=== PATIENT | female | born 1950 | race Caucasian/White ===

== ENCOUNTER 2016-09-10 21:48 | Emergency (ER) | payer OTHER, MEDICAID ==
[2016-09-10] MEDS ORDERED: ALBUTEROL 3 ML DEYVIAL ONE (22:07)
[2016-09-10 22:09] VITALS: TEMP 99.1
[2016-09-10] MEDS ORDERED: ALBUTEROL 3 ML DEYVIAL IH ONE (22:12)
[2016-09-10 22:16] LABS: % IMMATURE GRANULYOCYTES 0.4 % (0.0-1.1); ABSOLUTE IMMATURE GRANULOCYTES 0.04 10^3/uL (0.00-0.10); ADD DIFF? NO; ADD MORPH? NO; ADD SCAN? NO; ATYPICAL LYMPHOCYTE FLAG 0 (0-99); FRAGMENT RBC FLAG 0 (0-99); HEMATOCRIT 49.6 % (38.0-47.0); HEMOGLOBIN 16.6 g/dL (12.6-16.3); LEFT SHIFT FLG 0 (0-99); LIPEMIA HEMOLYSIS FLAG 80 (0-99); MEAN CELL HEMOGLOBIN 31.7 pg (27.9-34.1); MEAN CELL HEMOGLOBIN CONCENTR. 33.5 g/dL (32.4-36.7); MEAN CELL VOLUME 94.7 fL (81.5-99.8); MEAN PLATELET VOLUME 11.9 fL (8.7-11.7); PLATELET CLUMPS FLAG 10 (0-99); PLATELET COUNT 151 10^3/uL (150-400); RED BLOOD CELL COUNT 5.24 10^6/uL (4.18-5.33); RED CELL DISTRIBUTION WIDTH 13.2 % (11.5-15.2)
[2016-09-10 22:30] LABS: ALANINE AMINOTRANSFERASE 30 IU/L (9-52); ALBUMIN 4.3 g/dL (3.5-5.0); ALKALINE PHOSPHATASE 146 IU/L (38-126); ANION GAP 14 mEq/L (8-16); ASPARTATE AMINOTRANSFERASE 22 IU/L (14-46); BILIRUBIN,TOTAL 0.8 mg/dL (0.1-1.4); CALCIUM 9.9 mg/dL (8.5-10.4); CARBON DIOXIDE 22 mEq/l (22-31); CHLORIDE 103 mEq/L (97-110); CREATININE 2.1 mg/dL (0.6-1.0); GLOMERULAR FILTRATION RATE 24; GLUCOSE 129 mg/dL (70-100); POTASSIUM 5.3 mEq/L (3.5-5.2); SODIUM 139 mEq/L (134-144); TOTAL PROTEIN 8.2 g/dL (6.3-8.2)
--- NOTE | 2016-09-10 22:33 | EDPHY ---
H & P Stated Complaint: SOB, CHRONIC BRONCHITIS 85% AT HOME. DUOX2,SOLU MEDROL Time Seen by Provider: 09/10/16 22:06 HPI/ROS: HPI The patient presents brought in by ambulance for cough with shortness of breath which began tonight. For the last 3 days the patient has had runny nose, sore throat, then yesterday developed a cough which has gotten progressively worse over the course of the day. Tonight, she was trying to get ready to bed but was unable to because she was so short of breath, so called 911. When paramedics arrived her oxygen saturation was in the mid 80s. She was given a DuoNeb and Solu-Medrol 125 mg. She says she has had a flu shot this year. She was diagnosed with chronic bronchitis about a year ago by her primary care doctor but is not taking any medication for this. She is a heavy smoker. REVIEW OF SYSTEMS Constitutional: No fever, no chills. Eyes: No discharge. ENT: No sore throat. Cardiovascular: No chest pain, no palpitations. Respiratory: See HPI Gastrointestinal: No abdominal pain, no vomiting. Genitourinary: No hematuria. Musculoskeletal: No back pain. Skin: No rashes. Neurological: No headache. PMHx: Hypertension, history of renal cell carcinoma status post nephrectomy, admission for opiate overdose Soc Hx: Lives at home, smokes 1 pack per day for the last 50 years PHYSICAL General Appearance: Alert, no distress Eyes: Pupils equal and round no pallor or injection ENT, Mouth: Mucous membranes moist Respiratory: Slightly tachypneic, no retractions, prolonged I to E time with rhonchorous breath sounds throughout Cardiovascular: Regular rate and rhythm Gastrointestinal: Abdomen is soft and non-tender, no masses, bowel sounds normal Neurological: A&O, moves all extremities Skin: Warm and dry, no rashes Musculoskeletal: Neck is supple non tender Extremities: symmetrical, full range of motion Psychiatric: Patient is oriented X 3, there is no agitation Source: Patient Exam Limitations: No limitations - Personal History Current Tetanus/Diphtheria Vaccine: Yes Current Tetanus Diphtheria and Acellular Pertussis (TDAP): Yes - Medical/Surgical History Hx Asthma: Yes Hx Chronic Respiratory Disease: Yes Hx Diabetes: No Hx Cardiac Disease: No Hx Renal Disease: Yes Hx Cirrhosis: No Hx Alcoholism: No Hx HIV/AIDS: No Hx Splenectomy or Spleen Trauma: No Other PMH: Substance abuse hx, CKD, chronic knee pain, LINNEA/BSO, left nephrectomy , left flank hernia, CHRONIC BRONCHITIS - Social History Smoking Status: Light smoker Constitutional: Initial Vital Signs Temperature (C) 37.3 C 09/10/16 21:50 Heart Rate 110 H 09/10/16 21:50 Respiratory Rate 22 H 09/10/16 21:50 Blood Pressure 211/120 H 09/10/16 21:50 O2 Sat (%) 93 09/10/16 21:50 O2 Delivery Mode Room Air O2 (L/minute) 3 Allergies/Adverse Reactions: Cephalosporins Allergy (Verified 09/10/16 22:09) morphine Allergy (Verified 09/10/16 22:09) Penicillins Allergy (Verified 09/10/16 22:09) tetanus toxoid, adsorbed Allergy (Verified 09/10/16 22:09) contrast allergy Allergy (Uncoded 09/10/16 22:09) Home Medications: Medication Instructions Recorded Acetaminophen [Tylenol] 325 mg PO Q6 PRN 09/24/15 Carvedilol [Coreg] 3.125 mg PO BIDMEAL 09/24/15 Cholecalciferol Vit D3 [Vitamin D3 2,000 units PO DAILY 09/24/15 2000 units (OTC)] Escitalopram Oxalate [Lexapro] 10 mg PO DAILY 09/24/15 Gabapentin 200 mg PO HS 09/24/15 Multivitamins [Tab-A-Kilo] 1 each PO DAILY 09/24/15 S-Adenosylmethionine Sul Tosyl 200 mg PO DAILY 09/24/15 [Thanh-E] traZODone [traZODONE 50MG (RX)] 50 mg PO HS 09/24/15 Spironolactone 25 mg PO 09/10/16 Albuterol 17 gm IH Q6H PRN #1 aerosol 09/11/16 Doxycycline Hyclate 100 mg PO BID #14 tab 09/11/16 predniSONE [Prednisone] 60 mg PO DAILY #24 tablet 09/11/16 Medical Decision Making - Diagnostics Imaging: Chest x-ray two views demonstrates peribronchial thickening bilaterally, see full report from Dr. Singh for further details, discussed with Dr. Singh of Radiology. ED Course/Re-evaluation: 10:15 p.m.- Initial patient encounter. She is currently receiving albuterol after receiving DuoNeb in the field. She is feeling much better. 11:45 p.m.- The patient is feeling a bit better. She was able to ambulate to the bathroom, however upon return to her room her sat was 85%. We will check a resting room air saturation now. Initial labs are reviewed which show a creatinine of 2.1 which is near her baseline. Potassium was slightly elevated, however she did receive albuterol here and this likely lowered it. Her troponin is negative. 12:15 a.m.- The patient feels well, she is off oxygen with room air sats at about 91%. I have offered her admission, she would like to go home. I feel this is reasonable as she will be able to return if she is worse in any way and does not have an oxygen requirement. I feel she likely has a viral URI causing a a COPD exacerbation. Her rapid flu was negative. Her BNP is elevated, though on par with prior elevations. She says she has been evaluated by her primary care doctor with echo which she describes as being relatively normal. She may have a component of CHF exacerbation, however I think URI with COPD is the main cause of her symptomatology. Blood pressure is elevated, however unfortunately I feel this is her usual blood pressure. She will be sent home with an albuterol inhaler, prednisone, doxycycline. She is to follow up in the ER tomorrow if she is still feeling bad. Differential Diagnosis: This is a 66-year-old female with hypertension, status post nephrectomy for renal cell carcinoma, recent diagnosis of chronic bronchitis who presents brought in by ambulance for shortness of breath and cough which has been progressive over the last 1 day Differential diagnosis includes COPD with acute exacerbation, influenza, pneumonia, pneumothorax, CHF exacerbation. - Data Points Laboratory Results: Laboratory Results 09/10/16 21:50 09/10/16 21:50 09/10/16 09/10/16 23:30 21:50 WBC 10.15 H 10^3/uL (3.80-9.50) RBC 5.24 10^6/uL (4.18-5.33) Hgb 16.6 H g/dL (12.6-16.3) Hct 49.6 H % (38.0-47.0) MCV 94.7 fL (81.5-99.8) MCH 31.7 pg (27.9-34.1) MCHC 33.5 g/dL (32.4-36.7) RDW 13.2 % (11.5-15.2) Plt Count 151 10^3/uL (150-400) MPV 11.9 H fL (8.7-11.7) Neut % (Auto) 69.7 % (39.3-74.2) Lymph % (Auto) 15.9 % (15.0-45.0) [place] % (Auto) 10.2 % (4.5-13.0) Eos % (Auto) 2.8 % (0.6-7.6) Baso % (Auto) 1.0 % (0.3-1.7) Nucleat RBC Rel Count 0.0 % (0.0-0.2) Absolute Neuts (auto) 7.08 H 10^3/uL (1.70-6.50) Absolute Lymphs (auto) 1.61 10^3/uL (1.00-3.00) Absolute Monos (auto) 1.04 H 10^3/uL (0.30-0.80) Absolute Eos (auto) 0.28 10^3/uL (0.03-0.40) Absolute Basos (auto) 0.10 10^3/uL (0.02-0.10) Absolute Nucleated RBC 0.00 10^3/uL (0-0.01) Immature Gran % 0.4 % (0.0-1.1) Immature Gran # 0.04 10^3/uL (0.00-0.10) Sodium 139 mEq/L (134-144) Potassium 5.3 H mEq/L (3.5-5.2) Chloride 103 mEq/L (97-110) Carbon Dioxide 22 mEq/l (22-31) Anion Gap 14 mEq/L (8-16) BUN 28 H mg/dL (7-23) Creatinine 2.1 H mg/dL (0.6-1.0) Estimated GFR 24 Glucose 129 H mg/dL (70-100) Calcium 9.9 mg/dL (8.5-10.4) Total Bilirubin 0.8 mg/dL (0.1-1.4) AST 22 IU/L (14-46) ALT 30 IU/L (9-52) Alkaline Phosphatase 146 H IU/L (38-126) Troponin I 0.026 ng/mL (0-0.034) NT-Pro-B Natriuret Pep 5970 H pg/mL (0-125) Total Protein 8.2 g/dL (6.3-8.2) Albumin 4.3 g/dL (3.5-5.0) Influenza Typ A,B (DFA) NEGATIVE FOR FLU (NEGATIVE) Medications Given: Discontinued Medications Albuterol (Proventil Neb) 3 ml IH EDNOW ONE Stop: 09/10/16 22:13 Last Admin: 09/10/16 22:14 Dose: 3 ml Albuterol Sulfate (Proventil Inh Prepack) 1 mdi TAKEHOME EDNOW ONE Stop: 09/11/16 00:17 Last Admin: 09/11/16 00:27 Dose: 1 mdi Departure - Departure Disposition: Home, Routine, Self-Care Clinical Impression: Chronic obstructive pulmonary disease with acute exacerbation, Acute bronchitis Condition: Good Instructions: COPD (Chronic Obstructive Pulmonary Disease) (ED) Additional Instructions: Please make sure to take your antibiotics and prescriptions as prescribed. You should return to the emergency room if your worse in any way. Please follow-up with your primary care doctor in the next 2 days. Referrals: Maurice Barney, [Primary Care Provider] - As per Instructions Prescriptions: Albuterol 17 gm IH Q6H PRN #1 aerosol PRN Reason: Short Of Breath/Dyspnea Doxycycline Hyclate 100 mg PO BID #14 tab predniSONE [Prednisone] 60 mg PO DAILY #24 tablet
[2016-09-10 22:41] LABS: TROPONIN I 0.026 ng/mL (0-0.034)
--- NOTE | 2016-09-10 23:11 | DX ---
Chest, PA Upright and Lateral Views, at 10:01 p.m. Clinical History: 66-year-old female in the ED with shortness of breath. The patient has also had rhi norrhea, a cough, and extensive prior tobacco use history. Comparison Studies: Chest, dated December 09, 2015, and unenhanced CT imaging of the chest, dated 2014, retrieved from archive status. Findings: There are surgical clips in the medial left upper quadrant of the abdomen, consistent with a history of a prior nephrectomy. Oxygen tubing is in place. The cardiac silhouette remains enlarged, and there is tortuosity of the descending thoracic aorta. There has been an interval increase in the degree of extensive peribronchial thickening, with some peripheral paraseptal lines seen at the lung bases. There is no pleural effusion appreciated. At the medial right lung base, there appear to be a few scattered air bronchograms with some partial silhouetting of the right heart border. The trachea is midline. The patient's arms obscure the anterior retrosternal space on the lateral view. Calcifie d right hilar and subcarinal lymph nodes are seen, consistent with old granulomatous disease. The oss eous structures are age-appropriate. Impression: 1. Interval increase in diffuse peribronchial thickening and some bibasilar peripheral interstitial l grisel disease since September 26, 2015. Given the clinical scenario, a virally-mediated process is of hig h likelihood. Other differential considerations would include a drug interaction (has the patient had any recent chemotherapy, given her prior left nephrectomy), or potentially a cardiogenic etiology (c onsidered secondarily, as there is no pleural fluid appreciated). 2. An early alveolar infiltrate at the medial right lung base is suspected. 3. Sequela of old granulomas disease. Results were discussed with Dr. Lynsey Mendez. A test result has been communicated to a licensed care provider and documented in [employer], 10:53:33 P M, 09/10/2016, [employer] Message ID [id number].
[2016-09-11] MEDS ORDERED: ALBUTEROL INH PREPACK MDI TAKEHOME ONE (00:16)
[2016-09-11 00:41] VITALS: PULSE 88; RESP 20; O2SAT 90
[2016-09-11 00:42] VITALS: BP 198/110
== END 2016-09-11 00:38 | disposition home or self-care (01) ==
LOC: EDUNIT#
DX: J44.1 Chronic obstructive pulmonary disease with (acute) exacerbation (principal); J20.9 Acute bronchitis, unspecified; F17.200 Nicotine dependence, unspecified, uncomplicated; J45.909 Unspecified asthma, uncomplicated; I12.9 Hypertensive chronic kidney disease with stage 1 through stage 4 chronic kidney disease, or unspecified chronic kidney disease; N18.9 Chronic kidney disease, unspecified; Z85.528 Personal history of other malignant neoplasm of kidney

== ENCOUNTER → 2016-09-12 | Outpatient (CLI) | payer OTHER, MEDICAID ==
--- NOTE | 2016-09-12 16:37 | DX ---
PA and lateral chest - September 12, 2016 History: Shortness of breath, possible pneumonia. Comparison: PA and lateral chest of September 10, 2016. Findings: Diffuse interstitial prominence is again noted. Patchy consolidation at the right heart mar gin, likely in the right middle lobe, is unchanged. There is no pneumothorax or pleural effusion. Mil d cardiomegaly is stable. Calcified hilar and mediastinal lymph nodes are again noted. Mild degenerat car change is present in the spine. Impression: Stable chest with interstitial prominence and medial right basilar consolidation suspici ous for pneumonia. Continued radiographic follow up is recommended to resolution.
== END ==
LOC: GIMAGING 15:11
PROVIDERS: ATTEND Family Medicine
DX: R06.02 Shortness of breath (principal); Z72.0 Tobacco use
CPT/HCPCS: 71020-PO

== ENCOUNTER 2016-12-10 16:52 | Inpatient (IN) | payer OTHER, MEDICAID ==
[2016-12-10] MEDS ORDERED: NITROGLYCERIN 2% 1 GM PACKET TP ONE (17:25)
[2016-12-10] MEDS ORDERED: FUROSEMIDE 40 MG/4 ML VIAL IVP ONE (17:26)
--- NOTE | 2016-12-10 17:31 | EDPHY ---
H & P Stated Complaint: R flank pain,fluid retention, feels weak, SOB Time Seen by Provider: 12/10/16 17:15 HPI/ROS: CHIEF COMPLAINT: Weakness, shortness of breath, swelling HISTORY OF PRESENT ILLNESS: Patient is a 66-year-old female with a history of chronic kidney disease with right renal artery stenosis status post stent 10 years ago. She has also had a left nephrectomy due to renal cancer. She also has a history of chronic bronchitis. She does not typically wear oxygen at home. Her sats at triage are 88%. She has not had a fever or cough. She states that she has gained 12 lb in the last 2 weeks. She states that this seems similar to last time her renal artery was obstructed. She denies chest pain. She denies abdominal pain. REVIEW OF SYSTEMS: Constitutional: denies: chills, fever, recent illness, recent injury EENTM: denies: blurred vision, double vision, nose congestion Respiratory: See HPI Cardiac: denies: chest pain, irregular heart rate, lightheadedness, palpitations Gastrointestinal/Abdominal: denies: abdominal pain, diarrhea, nausea, vomiting, blood streaked stools Genitourinary: denies: dysuria, frequency, hematuria, pain Musculoskeletal: denies: joint pain, muscle pain Skin: denies: lesions, rash, jaundice, bruising Neurological: denies: headache, numbness, paresthesia, tingling, dizziness, weakness Hematologic/Lymphatic: denies: blood clots, easy bleeding, easy bruising Immunologic/allergic: denies: HIV/AIDS, transplant EXAM: GENERAL: Well-appearing, well-nourished and in no acute distress. HEAD: Atraumatic, normocephalic. EYES: Pupils equal round and reactive to light, extraocular movements intact, sclera anicteric, conjunctiva are normal. ENT: TMs normal, nares patent, oropharynx clear without exudates. Moist mucous membranes. NECK: Normal range of motion, supple without lymphadenopathy or JVD. LUNGS: Mild crackles at bases. No wheezes rales or rhonchi. HEART: Regular rate and rhythm without murmurs, rubs or gallops. ABDOMEN: Soft, nontender, normoactive bowel sounds. No guarding, no rebound. No masses appreciated. BACK: No CVA tenderness, no spinal tenderness, step-offs or deformities EXTREMITIES: Normal range of motion, 1+ pitting or edema. No clubbing or cyanosis. NEUROLOGICAL: Cranial nerves II through XII grossly intact. Normal speech, normal gait. 5/5 strength, normal movement in all extremities, normal sensation PSYCH: Normal mood, normal affect. SKIN: Warm, dry, normal turgor, no visible rashes or lesions. Source: Patient Exam Limitations: No limitations - Personal History Current Tetanus Diphtheria and Acellular Pertussis (TDAP): Yes - Medical/Surgical History Hx Asthma: Yes Hx Chronic Respiratory Disease: Yes Hx Diabetes: No Hx Cardiac Disease: No Hx Renal Disease: Yes Hx Cirrhosis: No Hx Alcoholism: No Hx HIV/AIDS: No Hx Splenectomy or Spleen Trauma: No Other PMH: Substance abuse hx, CKD, chronic knee pain, LINNEA/BSO, left nephrectomy for renal ca, left flank hernia, CHRONIC BRONCHITIS - Family History Significant Family History: No pertinent family hx - Social History Smoking Status: Current every day smoker Alcohol Use: Sober Drug Use: None Constitutional: Initial Vital Signs Temperature (C) 36.5 C 12/10/16 17:01 Heart Rate 84 12/10/16 17:01 Respiratory Rate 20 12/10/16 17:01 Blood Pressure 243/98 H 12/10/16 17:01 O2 Sat (%) 91 L 12/10/16 17:01 O2 Delivery Mode Room Air O2 (L/minute) 3 Allergies/Adverse Reactions: Cephalosporins Allergy (Intermediate, Verified 12/10/16 17:05) Hives Penicillins Allergy (Intermediate, Verified 12/10/16 17:05) Hives morphine Allergy (Mild, Verified 12/10/16 17:05) stomach issue tetanus toxoid, adsorbed Allergy (Mild, Verified 12/10/16 17:05) localized reaction contrast allergy Allergy (Intermediate, Uncoded 12/10/16 17:05) Hives Home Medications: Medication Instructions Recorded Carvedilol [Coreg] 3.125 mg PO BIDMEAL 09/24/15 traZODone [traZODONE 50MG (RX)] 50 mg PO HS 09/24/15 Spironolactone 25 mg PO DAILY 09/10/16 Albuterol 17 gm IH Q4 PRN 12/10/16 Budesonide/Formoterol 160/4.5 1 puffs IH BID 12/10/16 [Symbicort 160-4.5 Mcg Inh (*)] Escitalopram Oxalate [Lexapro] 20 mg PO HS 12/10/16 Gabapentin [Neurontin 100 MG (*)] 100 mg PO HS 12/10/16 Gabapentin [Neurontin 300 MG (*)] 300 mg PO HS 12/10/16 Medical Decision Making - Diagnostics EKG Interpretation: An EKG obtained and was read and documented in trace view. Please see trace view for full reading and report. Sinus rhythm, LVH, no acute ischemic changes A 2nd EKG obtained and was read and documented in trace view. Please see trace view for full reading and report. similar to previous Imaging: Imaging Impressions Chest X-Ray 12/10/16 17:26 Impression: 1. Increased interstitial prominence, which could be related to pulmonary edema /CHF. 2. Medial right basilar opacity that could be related to atelectasis. Pneumonia is considered unlikely. Abdomen/Pelvis Ultrasound 12/10/16 17:28 Impression: No acute findings. Findings discussed with Adam Martinez M.D., on December 10, 2016 at 1837 hours. X-ray: chest x-ray was obtained. I viewed the images myself on the PACS system. My interpretation of the images is: Worsening pulmonary edema. The radiologist interpretation is pending. ED Course/Re-evaluation: 6:30 p.m. the patient has pulmonary edema. She has received Lasix and nitro patch. Her blood pressure is decreased from 260 on arrival to 208/85.renal ultrasound pending. Creatinine is at baseline. Discussed her case with Dr. Demi Gill who will admit to the medical service. I will place her in PCU. Differential Diagnosis: Partial list of the Differential diagnosis considered include but were not limited to; CHF, pulmonary hypertension, pulmonary edema, pneumonia, renal insufficiency, and although unlikely based on the history and physical exam, I also considered renal failure, sepsis. Critical Care Time: Critical care time spent by me, Dr. Martinez exclusive with this patient was 35 minutes, exclusive of the PA time exclusive of procedures. The organ system that was at risk was pulmonary and I gave Lasix, nitroglycerin, consultation and admission to prevent worsening of the patient's condition - Data Points Laboratory Results: Laboratory Results 12/10/16 17:20 04/15/17 17:20 12/10/16 12/10/16 12/10/16 17:20 17:20 17:20 WBC 16.56 10^3/uL H 10^3/uL (3.80-9.50) RBC 4.33 10^6/uL 10^6/uL (4.18-5.33) Hgb 13.2 g/dL g/dL (12.6-16.3) Hct 41.3 % % (38.0-47.0) MCV 95.4 fL fL (81.5-99.8) MCH 30.5 pg pg (27.9-34.1) MCHC 32.0 g/dL L g/dL (32.4-36.7) RDW 14.3 % % (11.5-15.2) Plt Count 224 10^3/uL 10^3/uL (150-400) MPV 11.1 fL fL (8.7-11.7) Neut % (Auto) 86.0 % H % (39.3-74.2) Lymph % (Auto) 6.9 % L % (15.0-45.0) [place] % (Auto) 6.2 % % (4.5-13.0) Eos % (Auto) 0.1 % L % (0.6-7.6) Baso % (Auto) 0.2 % L % (0.3-1.7) Nucleat RBC Rel Count 0.0 % % (0.0-0.2) Absolute Neuts (auto) 14.24 10^3/uL H 10^3/uL (1.70-6.50) Absolute Lymphs (auto) 1.14 10^3/uL 10^3/uL (1.00-3.00) Absolute Monos (auto) 1.03 10^3/uL H 10^3/uL (0.30-0.80) Absolute Eos (auto) 0.02 10^3/uL L 10^3/uL (0.03-0.40) Absolute Basos (auto) 0.03 10^3/uL 10^3/uL (0.02-0.10) Absolute Nucleated RBC 0.00 10^3/uL 10^3/uL (0-0.01) Immature Gran % 0.6 % % (0.0-1.1) Immature Gran # 0.10 10^3/uL 10^3/uL (0.00-0.10) PT 13.8 SEC SEC (12.0-15.0) INR 1.07 (0.83-1.16) APTT 26.8 SEC SEC (23.0-38.0) Sodium 139 mEq/L mEq/L (134-144) Potassium 5.5 mEq/L H mEq/L (3.5-5.2) Chloride 109 mEq/L mEq/L (97-110) Carbon Dioxide 20 mEq/l L mEq/l (22-31) Anion Gap 10 mEq/L mEq/L (8-16) BUN 39 mg/dL H mg/dL (7-23) Creatinine 2.1 mg/dL H mg/dL (0.6-1.0) Estimated GFR 24 Glucose 106 mg/dL H mg/dL (70-100) Calcium 10.5 mg/dL H mg/dL (8.5-10.4) Troponin I 0.022 ng/mL ng/mL (0-0.034) NT-Pro-B Natriuret Pep 76804 pg/mL H pg/mL (0-125) Medications Given: Discontinued Medications Furosemide (Lasix Injection) 40 mg IVP EDNOW ONE Stop: 12/10/16 17:27 Last Admin: 12/10/16 17:40 Dose: 40 mg Nitroglycerin (Nitro-Bid 2%) 1 inch TP EDNOW ONE Stop: 12/10/16 17:26 Last Admin: 12/10/16 17:40 Dose: 1 inch Departure - Departure Disposition: [facility] Inpatient Acute Clinical Impression: Pulmonary edema Qualifiers: Chronicity: acute Qualified Code(s): J81.0 - Acute pulmonary edema Condition: Fair
[2016-12-10 17:32] LABS: % IMMATURE GRANULYOCYTES 0.6 % (0.0-1.1); ADD DIFF? NO; ADD MORPH? NO; ADD SCAN? NO; ATYPICAL LYMPHOCYTE FLAG 0 (0-99); FRAGMENT RBC FLAG 0 (0-99); HEMATOCRIT 41.3 % (38.0-47.0); HEMOGLOBIN 13.2 g/dL (12.6-16.3); LEFT SHIFT FLG 0 (0-99); LIPEMIA HEMOLYSIS FLAG 80 (0-99); MEAN CELL HEMOGLOBIN 30.5 pg (27.9-34.1); MEAN CELL VOLUME 95.4 fL (81.5-99.8); MEAN PLATELET VOLUME 11.1 fL (8.7-11.7); PLATELET CLUMPS FLAG 0 (0-99); PLATELET COUNT 224 10^3/uL (150-400); RED BLOOD CELL COUNT 4.33 10^6/uL (4.18-5.33); RED CELL DISTRIBUTION WIDTH 14.3 % (11.5-15.2)
[2016-12-10 17:38] LABS: ANION GAP 10 mEq/L (8-16); CALCIUM 10.5 mg/dL (8.5-10.4); CARBON DIOXIDE 20 mEq/l (22-31); CHLORIDE 109 mEq/L (97-110); CREATININE 2.1 mg/dL (0.6-1.0); GLOMERULAR FILTRATION RATE 24; GLUCOSE 106 mg/dL (70-100); POTASSIUM 5.5 mEq/L (3.5-5.2); SODIUM 139 mEq/L (134-144)
[2016-12-10 17:41] LABS: INR 1.07 (0.83-1.16); PROTIME(PATIENT) 13.8 SEC (12.0-15.0)
[2016-12-10 17:42] LABS: APTT 26.8 SEC (23.0-38.0)
[2016-12-10 17:50] LABS: TROPONIN I 0.022 ng/mL (0-0.034)
--- NOTE | 2016-12-10 18:07 | CPEKG ---
Heart Rate: 83 RR Interval: 723 P-R Interval: 192 QRSD Interval: 86 QT Interval: 364 QTC Interval: 428 P [place]: 37 QRS [place]: 44 T Wave [place]: 76 EKG Severity - ABNORMAL ECG - EKG Impression: SINUS RHYTHM EKG Impression: CONSIDER LEFT VENTRICULAR HYPERTROPHY EKG Impression: similar to previous Electronically Signed By: Adam Martinez 10-Dec-2016 19:26:35
--- NOTE | 2016-12-10 19:09 | CPEKG ---
Heart Rate: 76 RR Interval: 789 P-R Interval: 192 QRSD Interval: 86 QT Interval: 384 QTC Interval: 432 P [place]: 40 QRS [place]: 47 T Wave [place]: 49 EKG Severity - ABNORMAL ECG - EKG Impression: SINUS RHYTHM EKG Impression: CONSIDER LEFT VENTRICULAR HYPERTROPHY Electronically Signed By: Adam Martinez 10-Dec-2016 19:27:44
[2016-12-10] MEDS: BUDESONIDE/FORMOTEROL 160/4.5 60 PUFFS/MDI IH SCH (21:15)
[2016-12-10] MEDS: HEPARIN 5,000 UNIT/0.5 ML SYR SC SCH (21:27)
[2016-12-10] MEDS: GABAPENTIN 300 MG CAP PO SCH (21:27)
[2016-12-10] MEDS: GABAPENTIN 100 MG CAP PO SCH (21:27)
[2016-12-10] MEDS: ESCITALOPRAM OXALATE 10 MG TAB PO SCH (21:27)
[2016-12-10] MEDS: traZODone 50 MG TAB PO SCH (21:28)
[2016-12-10] MEDS: niCARdipine/NACL 200 ML IV SCH (21:54)
[2016-12-10] MEDS ORDERED: ALBUTEROL 60 PUFFS/8 GM MDI IH ONE (22:03)
[2016-12-10] MEDS ORDERED: ALBUTEROL 3 ML DEYVIAL IH PRN (22:04)
--- NOTE | 2016-12-10 22:27 | GHP ---
[f rep st] HISTORY AND PHYSICAL DATE OF ADMISSION: 12/10/2016 CHIEF COMPLAINT: Shortness of breath. HISTORY OF PRESENT ILLNESS: The patient is a 66-year-old female who has noticed increasing shortnes s of breath for the last 3 weeks, although her legs have only been edematous for 1 day. She has gai adrianna 12 pounds over the last 2 weeks. She denies any chest pain. She had a very similar thing occur 2 years ago when her known renal artery stenosis to a unilateral kidney had recurred. She underwen t an angioplasty to that renal artery and the CHF and hypertension all reversed themselves. This fe els exactly the same as last time. PAST MEDICAL HISTORY: 1. Left-sided nephrectomy secondary to renal cell carcinoma. 2. Recurrent renal artery stenosis status post stent to the right kidney. 3. Chronic renal failure. Baseline creatinine 2.1. PAST SURGICAL HISTORY: Hysterectomy. MEDICATIONS: Please see computer record for full, detailed list. ALLERGIES: Penicillin, cephalosporins, IV contrast, and morphine. SOCIAL HISTORY: She smokes a half-a-pack per day. No alcohol. She lives alone. REVIEW OF SYSTEMS: A complete review of systems was obtained. Review of systems is negative regard ing constitutional, HEENT, GI, pulmonary, cardiovascular, , hematology, skin, muscular, endocrine, psych, except for positives and negatives as in HPI. FAMILY HISTORY: Reviewed. Noncontributory to presenting complaint. PHYSICAL EXAMINATION: GENERAL: A well-developed, well-nourished female, in no acute distress. VIT AL SIGNS: Temperature is 36.5, pulse 77, blood pressure on presentation 243/98, saturating 94% on r oom. EYES: Normal conjunctivae. Pupils equal and reactive to light. ENT: Normal ears and nose. Hearing intact. Normal lips and teeth. Oropharynx moist. NECK: Trachea midline. No thyromegaly . CHEST: Normal respiratory effort. LUNGS: Bibasilar rales. CARDIOVASCULAR SYSTEM: Regular rat e and rhythm. No murmur. 2+ lower extremity edema. ABDOMEN: Soft. Nontender. No hepatomegaly. SKIN: Warm, dry, intact, without rash. MUSCULOSKELETAL: No cyanosis or clubbing. Strength is 5/ 5 upper and lower extremities. NEUROLOGIC: Cranial nerves intact. Normal sensation to light touch . PSYCH: Alert and oriented x3. Normal affect. Normal judgment. Normal memory. LABORATORY DATA: White count 16.56, hematocrit 41.3, platelets 224. Sodium 139, potassium 5.5, chl oride 109, bicarb 20, BUN 39, creatinine 2.1, glucose 106. Calcium is 10.5. Troponins negative. B DOWEL INSPECTOR is 12,200. EKG reviewed by me: My personal interpretation is normal sinus rhythm. No ST or T-wave changes. Chest x-ray shows CHF. Renal ultrasound is negative. ASSESSMENT AND PLAN: 1. Hypertensive emergency. She presents with new onset congestive heart failure. Need to avoid AC E inhibitors given her renal artery stenosis and unilateral kidney. Will place her on a Cardene dri p and bring her blood pressure down gradually, with a goal blood pressure overnight systolic 170-180 . She will need monitoring in the step-down unit for this. 2. New onset congestive heart failure. I suspect this is due to her uncontrolled hypertension. Wi ll check an echocardiogram. Will give her IV Lasix. 3. Recurrent renal artery stenosis with unilateral kidney. I suspect recurrence of this stenosis y et again is the cause of her current decline. I spoke with Dr. Rainey of Nephrology and she agree s. Will consult Interventional Radiology to reconsider angiogram and possible repeat stent placemen t. 4. IV contrast allergy. Prior to angiogram, she will need premedication. She did well previously with prednisone and Benadryl. 5. Chronic kidney disease. She is at baseline. 6. Peripheral vascular disease. It is not clear to me why she is not on a statin drug and an aspir in, given her severe recurrence of this renal artery stenosis due to peripheral vascular disease. S he is also still smoking. She needs much more aggressive risk reduction. Will check a lipid panel. She clearly needs a statin drug. 7. Hyperkalemia. Will stop her spironolactone. 8. Tobacco dependence. Will place on a nicotine patch. 9. Obesity. Body mass index is 38. 10. This patient is critically ill with severe uncontrolled hypertension causing congestive heart f ailure and I think it will be a complex coordination in an ongoing basis prior to proceeding with IR procedure, given the need for Renal, Interventional Radiology involvement, as well as pre-treating for her dye allergy. Plan: I spoke with Dr. Rainey and the plan will be to medically stabilize h er over the next 24 hours and I hope to coordinate for Interventional Radiology Monday. CRITICAL CARE TIME SPENT: 45 minutes. CODE STATUS: Full. ADMISSION STATUS: Will admit to inpatient. DVT PROPHYLAXIS: Subcu heparin. She is high risk. /[id number]/MODL
[2016-12-10] MEDS: ACETAMINOPHEN 325 MG TAB PO PRN (23:37)
[2016-12-11 04:01] LABS: % IMMATURE GRANULYOCYTES 0.4 % (0.0-1.1); ABSOLUTE IMMATURE GRANULOCYTES 0.06 10^3/uL (0.00-0.10); ADD DIFF? NO; ADD MORPH? NO; ADD SCAN? NO; ATYPICAL LYMPHOCYTE FLAG 0 (0-99); FRAGMENT RBC FLAG 0 (0-99); HEMATOCRIT 38.1 % (38.0-47.0); HEMOGLOBIN 12.3 g/dL (12.6-16.3); LEFT SHIFT FLG 0 (0-99); LIPEMIA HEMOLYSIS FLAG 80 (0-99); MEAN CELL HEMOGLOBIN CONCENTR. 32.3 g/dL (32.4-36.7); MEAN PLATELET VOLUME 11.1 fL (8.7-11.7); PLATELET CLUMPS FLAG 10 (0-99); PLATELET COUNT 211 10^3/uL (150-400); RED BLOOD CELL COUNT 3.97 10^6/uL (4.18-5.33); RED CELL DISTRIBUTION WIDTH 14.4 % (11.5-15.2)
[2016-12-11 04:08] LABS: ANION GAP 13 mEq/L (8-16); CALCIUM 9.8 mg/dL (8.5-10.4); CARBON DIOXIDE 23 mEq/l (22-31); CHLORIDE 108 mEq/L (97-110); CHOLESTEROL 189 mg/dL (140-220); CHOLESTEROL/HDL RATIO 4.61 RATIO (1.00-4.44); CREATININE 2.3 mg/dL (0.6-1.0); GLOMERULAR FILTRATION RATE 21; GLUCOSE 90 mg/dL (70-100); HIGH DENSITY LIPOPROTEIN 41 mg/dL (40-85); LDL/HDL RATIO 2.85 RATIO (1.00-3.22); LOW DENSITY LIPOPROTEIN 117 mg/dL (80-100); NON-HIGH DENSITY LIPOPROTEIN 148 mg/dL (90-129); POTASSIUM 5.4 mEq/L (3.5-5.2); SODIUM 144 mEq/L (134-144); TRIGLYCERIDE 159 mg/dL (35-135); VERY LOW DENSITY LIPOPROTEINS 31 mg/dL (8-25)
[2016-12-11 04:11] LABS: INR 1.1 (0.83-1.16); PROTIME(PATIENT) 14.1 SEC (12.0-15.0)
[2016-12-11] MEDS ORDERED: ALBUTEROL 60 PUFFS/8 GM MDI IH PRN (06:21)
[2016-12-11] MEDS: NICOTINE 14 MG/24 HR PATCH TD SCH (07:49)
[2016-12-11] MEDS: CARVEDILOL 3.125 MG TAB PO SCH ×2 (07:49→17:28)
[2016-12-11] MEDS: FUROSEMIDE 40 MG/4 ML VIAL IVP SCH ×2 (07:50→16:31)
[2016-12-11] MEDS: HEPARIN 5,000 UNIT/0.5 ML SYR SC SCH ×2 (07:50→16:31)
[2016-12-11] MEDS: BUDESONIDE/FORMOTEROL 160/4.5 60 PUFFS/MDI IH SCH ×2 (09:24→20:54)
--- NOTE | 2016-12-11 09:53 | GCON ---
[f rep st] CONSULTATION FIELD HOCKEY COACH CONSULTATION REASON FOR ADMISSION: Dyspnea, pulmonary edema, hypertensive urgency, new onset congestive heart fa ilure. HISTORY OF PRESENT ILLNESS: The patient is a very pleasant 66-year-old white female with a past med ical history including nephrectomy for renal cell carcinoma, chronic renal insufficiency, recurrent renal artery stenosis, and chronic obstructive pulmonary disease. She presented with increased shor tness of breath. In discussion with the patient, she states over the last several weeks she has not iced increasing breathlessness, worsening with any form of exertion. She has had significant lower extremity edema with excessive weight gain. She denies any chest pain, pleuritic type chest pain, o r anginal equivalent. No fever, no night sweats. She was admitted to the intensive care unit, and currently she feels markedly improved. PAST MEDICAL HISTORY: Again, significant for renal cell carcinoma, renal artery stenosis, with stat us post stent, chronic renal insufficiency, chronic obstructive pulmonary disease. PAST SURGICAL HISTORY: She had right nephrectomy, hysterectomy, and again, renal artery stents. ALLERGIES: Penicillin, cephalosporin, IV contrast, and morphine. SOCIAL HISTORY: 50+ pack-year smoker, none for many years. No significant alcohol use. She has go od family support. PHYSICAL EXAM: VITAL SIGNS: Blood pressure is 162/59, pulse 73, respirations 16. She is afebrile. Oxygen saturation 96% on 2 L. GENERAL: She is a moderately overweight 66-year-old white female w ho is resting comfortably on nasal cannula oxygen. HEENT: Eyes, MICHAEL, EOMI. Throat shows no eryt kit or tonsillar hypertrophy. NECK: Supple. No cervical adenopathy. HEART: Regular rate and rh ythm with a 2/6 systolic murmur at the left sternal border without radiation. LUNGS: Diminished br eath sounds and a prolongation of the expiratory phase, but there is no wheeze. There are a few bib asilar rhonchi. ABDOMEN: Soft, nontender. Bowel sounds are present in all 4 quadrants. EXTREMITI ES: 1+ lower extremity edema. IMAGING: Chest x-ray dated 12/10/2016 shows some atelectasis, some mild central pulmonary edema. LABORATORY DATA: White count 15, hemoglobin 12, hematocrit 38, platelet count 211. INR is 1.1. So dium 144, potassium 5.4, chloride 108, CO2 23, BUN 46, creatinine 2.3, glucose is 90. IMPRESSION: 1. Hypertensive urgency. Blood pressure is markedly better. 2. Congestive heart failure. 3. History of recurrent renal artery stenosis. 4. Chronic renal insufficiency. 5. Peripheral vascular disease. 6. Chronic obstructive pulmonary disease, currently stable. 7. Morbid obesity. RECOMMENDATION: 1. Agree with echocardiogram. 2. Aggressive blood pressure control. Currently adequate. 3. DVT and PE prophylaxis. 4. Stress ulcer prophylaxis. 5. Continue her home medications. 6. Patient appears to have improved. Thank you very much. /[id number]/MODL
--- NOTE | 2016-12-11 10:49 | ECHO ---
[id number] + + [address] : : [place] [address] : : [phone] + Adult Echocardiographic Report + --------+ :Name: EMRE ELKINS Date: 12/11/2016 08:04 AM : : Hospital Admission Number: [id number] Locat ion: 255: :: 1950 Gender: Female Height: 62 in : :Age: 66 yrs Race: WH Weight: 212 l b : :Reason For Study: CHF : : BSA: 2.0 mete rs2 : :History: No previous cardiac history : + --------+ MMode/2D Measurements \T\ Calculations IVSd: 2.0 cm RVDd: 3.2 cm FS: 35.5 % MV Diam: 2.9 cm LVPWd: 1.6 cm LVIDd: 4.1 cm EDV(Teich): 74.7 ml LVIDs: 2.7 cm ESV(Teich): 25.8 ml EF(Teich): 65.4 % LVOT diam: 1.5 cm LVLd ap4: 8.0 cm SV(MOD-sp4): 71.0 ml LVOT area: 1.7 cm2EDV(MOD-sp4): 117.0 ml LVLs ap4: 6.7 cm ESV(MOD-sp4): 46.0 ml EF(MOD-sp4): 60.7 % Normal Measurement Values: + + :LVIDd (3.5-5.7cm) IVSd (0.6-1.1cm) LVPWd (0.6-1.1cm) Aortic Root (2.0-3.7cm)Left Atrium (1.5-4.0cm): :LV Vol(d) (76-115ml) LV Vol(s) (29-48ml) Ejec Fraction (50-65%)PV Bravo (0.6- 1.2m/s) TV Bravo (0.4-1.0m/s) : :MV E Bravo (0.8-1.0m/s)MV A Bravo (0.3-1.0m/s)LVOT Bravo (0.7-1.2m/s) Asc Ao Bravo ( 0.9-1.8m/s) : + + Doppler Measurements \T\ Calculations MV E max bravo: MV area (1 diam): Ao V2 max: AI max bravo: 141.9 cm/sec 6.5 cm2 230.8 cm/sec 444.9 cm/sec MV A max bravo: MV Flow area Ao max PG: AI max P.3 cm/sec 21.3 mmHg 80.5 mmHg MV E/A: 2.6 (1diam): 6.5 cm2 Ao mean PG: AI dec slope: MV dec time: 15.8 mmHg 361.3 cm/sec2 0.16 sec Ao V2 mean: AI P1/2t: 187.0 cm/sec 360.7 msec Ao V2 VTI: 63.9 cm LORY(I,D): 1.2 cm2 LV V1 mean PG: MR max bravo: SV(LVOT): 76.0 mlPA V2 max: 7.2 mmHg 567.4 cm/sec 109.9 cm/sec LV V1 mean: MR max PG: PA max P.8 mmHg 125.8 cm/sec 128.8 mmHg PA V2 mean: LV V1 VTI: 45.2 cm 81.5 cm/sec PA mean P.9 mmHg PA V2 VTI: 25.5 cm PI end-d bravo: TR max bravo: 163.6 cm/sec 282.3 cm/sec TR max P.9 mmHg RAP systole: 15.0 mmHg RVSP(TR): 46.9 mmHg Left Ventricle The left ventricle is normal in size. There is moderate concentric left ventricular hypertrophy. Ejection Fraction = 60-65%. There is Doppler evidence for diastolic dysfunction. No regional wall motion abnormalities noted. Right Ventricle The right ventricle is normal in size and function. Atria Moderate LAE. Right atrial size is normal. The interatrial septum is intact with no evidence for an atrial septal defect. Mitral Valve There is mild mitral annular calcification. There is no mitral valve stenosis. There is mild to moderate mitral regurgitation. Tricuspid Valve The tricuspid valve is normal in structure and function. There is no tricuspid stenosis. Moderate TR with moderate pulmonary HTN with estimated PAS 52mmHg. Estimated elevated CVP of 15mmHg. Aortic Valve Moderate Aortic Valve Calcification. There is no aortic stenosis. Moderate aortic regurgitation. Pulmonic Valve The pulmonic valve is not well visualized. Mild pulmonic valvular regurgitation. Great Vessels The aortic root is normal size. Pericardium/Pleural There is no pericardial effusion. Conclusion A complete two-dimensional transthoracic echocardiogram was performed (2D, M-mode, Doppler and color flow Doppler). The study was technically difficult. 1)Normal LV size and systolic function with a LVEF of 60-65% and normal wall motions. 2)Moderate concentric LVH with moderate diastolic dysfunction. 3)Moderate left atrial enlargement. 4)Aortic valve sclerosis without . Moderate AI noted. 5)Mild to moderate MR without MV prolapse. 6)Moderate TR with estimated PAS 52mmHg consistent with moderate pulmonary HTN. 7)Elevated CVP of 15mmHg. Final Reading Physician: Steve Barth electronically signed on 12/11/2016 10:48 AM Ordering Physician: Demi Gill Performed By: Diane Blancas
--- NOTE | 2016-12-11 12:56 | SOAPPROG ---
SOAP Progress Note Assessment/Plan: Assessment: 1)Malignant HTN -has h/o renal artery stenosis in solitary kidney- has required stenting in past and baseline able to manage BP with coreg and aldactone alone -given spike in BP, pulm edema over past few weeks- I agree most concerning would be restenosis of stent and needs IR eval. She has contrast dye allergy but tells me she does ok as long as gets pre-treated with steroids and benadryl. PLan to discuss with IR in am to discuss timing of procedure. She is aware of risk of contrast nephropathy as well- I am hesitant to given any IVF given volume overloaded currently. -continue nicardipine gtt- her BP currently is in 160s which is good target given she came in >200s and don't want to overshoot initially and risk loss of autoregulation. Hold aldactone for now given high K. -agree with IV lasix given volume overload -needs to quit smoking, would start Asa and statin (awaiting fasting lipid profile) for more aggressive management 2)CKD s/p nephrectomy (renal cell CA) -Cr stable at baseline low 2 -at risk for further decline given concern for renal artery stenosis and need for contrast dye 3)Volume overload with pulm edema, hypoxia -suspect HTN and renal artery stenosis related -TTE ordered -agree with IV lasix 4)Hyperkalemia -change to renal diet -hold aldactone -lasix will help -recheck labs this afternoon- I left parameters for RN to call I discussed with laborer [employer] and RN [facility] [phone] 12/11/16 13:04 Subjective: 66 y/o woman with h/o HTN, CKD s/p nephrectomy (renal cell CA), renal artery stenosis s/p stenting in past admitted with sob, worsening BP. Pt usually able to manage BP at home with coreg and low dose spirinolactone alone. Over past few weeks, noted increasing BP on home checks- up to 190s SBP. Reports taking all of meds, no changes recently. Reports SOB has gradually increased over same amount of time. Tells me this is how she felt when she needed stenting of renal artery last time. No cp, n/v, diarrhea. Has underlying CKD and reports baseline Cr low 2 range. Has contrast dye allergy but reports does ok if gets pre- treated with steroids and benadryl. Objective: Vital Signs Temp Pulse Resp BP Pulse Ox 36.8 C 73 16 147/53 H 96 12/11/16 09:49 12/11/16 11:39 12/11/16 11:00 12/11/16 11:39 12/11/16 11:00 Laboratory Results 12/11/16 03:40 12/11/16 03:40 12/10/16 12/11/16 12/12/16 05:59 05:59 05:59 Intake Total 435 Balance 435 PT 14.1 SEC (12.0-15.0) 12/11/16 03:40 INR 1.10 (0.83-1.16) 12/11/16 03:40 Physical Exam - Physical Exam General Appearance: no apparent distress, other (sitting in chair, on O2 by NC, on nicardipine gtt @ 5) EENT: other (mmm) Neck: supple Respiratory: crackles (bases bilat) Cardiac/Chest: regular rate, rhythm, other (no rub) Abdomen: normal bowel sounds, non-tender, soft Skin: warm/dry Extremities: other (+edema bilat lE) Neuro/Psych: alert, oriented x 3 ICD10 Worksheet Patient Problems: Problems Problem Status Onset Pulmonary edema Acute Acute renal insufficiency Acute Opiate or related narcotic overdose Acute
[2016-12-11] MEDS: niCARdipine/NACL 200 ML IV SCH ×2 (13:16→17:28)
[2016-12-11 17:02] LABS: ANION GAP 13 mEq/L (8-16); CALCIUM 9.7 mg/dL (8.5-10.4); CARBON DIOXIDE 25 mEq/l (22-31); CHLORIDE 104 mEq/L (97-110); CREATININE 2.5 mg/dL (0.6-1.0); GLOMERULAR FILTRATION RATE 19; GLUCOSE 92 mg/dL (70-100); POTASSIUM 4.7 mEq/L (3.5-5.2); SODIUM 142 mEq/L (134-144)
--- NOTE | 2016-12-11 17:05 | SOAPPROG ---
JOVITA Progress Note Assessment/Plan: Assessment: Severe hypertension has responded well to medical therapy. Suspicion of recurrent right renal artery stenosis. Left nephrectomy for renal cell CA. History of allergy to vascular contrast (hives). Plan: Premedicate with steroid and antihistamine. Arteriography and possible angioplasty of right renal artery. 12/11/16 16:57 12/11/16 17:08 Subjective: Dyspnea and swelling of legs have responded favorably to medical treatment. Recurrent stenosis of right renal artery is likely. We discussed arteriography (after premedication) and possible balloon angioplasty in detail. Ms. Rosado is quite familiar with this procedure. She accepts risks--, stroke, allergy, internal bleeding, loss of right kidney (making hemodialysis necessary) --and she wishes to proceed. Objective: Pulses Fem Pop DP PT Left 0 0 4 0 Right 0 0 2 2 Difficulty finding femoral and popliteal pulses on this obese patient. Mallampati 3 3/3/2 Vital Signs Temp Pulse Resp BP Pulse Ox 36.8 C 76 16 163/64 H 96 12/11/16 09:49 12/11/16 16:00 12/11/16 16:00 12/11/16 16:00 12/11/16 16:00 Laboratory Results 12/11/16 03:40 12/10/16 12/11/16 12/12/16 05:59 05:59 05:59 Intake Total 435 Balance 435 PT 14.1 SEC (12.0-15.0) 12/11/16 03:40 INR 1.10 (0.83-1.16) 12/11/16 03:40 ICD10 Worksheet Patient Problems: Problems Problem Status Onset Pulmonary edema Acute Acute renal insufficiency Acute Opiate or related narcotic overdose Acute
--- NOTE | 2016-12-11 19:41 | HOSPPROG ---
Hospitalist Progress Note Assessment/Plan: * Hypertensive urgency * blood pressure adequate on cardene gtt * nephrology help appreciated * Probable recurrent renal artery stenosis * angio tomorrow *CKD * at close to baseline creatinine *edema * hold lasix tomorrow for angiogram *atherosclerosis * start statin and asa on dc Subjective: feels better Objective: Vital Signs Temp Pulse Resp BP Pulse Ox 36.8 C 76 14 161/54 H 96 12/11/16 09:49 12/11/16 17:28 12/11/16 17:00 12/11/16 17:28 12/11/16 16:00 Laboratory Results 12/11/16 03:40 12/11/16 16:45 12/10/16 12/11/16 12/12/16 05:59 05:59 05:59 Intake Total 435 809 Balance 435 809 PT 14.1 SEC (12.0-15.0) 12/11/16 03:40 INR 1.10 (0.83-1.16) 12/11/16 03:[address] hawk and nephrology - Physical Exam Constitutional: no apparent distress, appears nourished, not in pain Eyes: anicteric sclera, EOMI Ears, Nose, Mouth, Throat: moist mucous membranes, hearing normal Cardiovascular: regular rate and rhythym, no murmur, rub, or gallop, edema Respiratory: no respiratory distress, no rales or rhonchi, clear to auscultation Gastrointestinal: normoactive bowel sounds, soft, non-tender abdomen, no palpable masses Skin: warm Neurologic: AAOx3 Psychiatric: interacting appropriately, not anxious, not encephalopathic, thought process linear ICD10 Worksheet Patient Problems: Problems Problem Status Onset Pulmonary edema Acute Acute renal insufficiency Acute Opiate or related narcotic overdose Acute
[2016-12-11] MEDS: GABAPENTIN 100 MG CAP PO SCH (20:53)
[2016-12-11] MEDS: ESCITALOPRAM OXALATE 10 MG TAB PO SCH (20:53)
[2016-12-11] MEDS: traZODone 50 MG TAB PO SCH (20:54)
[2016-12-11] MEDS: GABAPENTIN 300 MG CAP PO SCH (20:54)
[2016-12-12 05:12] LABS: % IMMATURE GRANULYOCYTES 0.4 % (0.0-1.1); ABSOLUTE IMMATURE GRANULOCYTES 0.04 10^3/uL (0.00-0.10); ADD DIFF? NO; ADD MORPH? NO; ADD SCAN? NO; ATYPICAL LYMPHOCYTE FLAG 0 (0-99); FRAGMENT RBC FLAG 0 (0-99); HEMATOCRIT 40.2 % (38.0-47.0); HEMOGLOBIN 12.9 g/dL (12.6-16.3); LEFT SHIFT FLG 0 (0-99); LIPEMIA HEMOLYSIS FLAG 80 (0-99); MEAN CELL HEMOGLOBIN 30.9 pg (27.9-34.1); MEAN CELL HEMOGLOBIN CONCENTR. 32.1 g/dL (32.4-36.7); MEAN CELL VOLUME 96.4 fL (81.5-99.8); MEAN PLATELET VOLUME 10.9 fL (8.7-11.7); PLATELET CLUMPS FLAG 0 (0-99); PLATELET COUNT 198 10^3/uL (150-400); RED BLOOD CELL COUNT 4.17 10^6/uL (4.18-5.33); RED CELL DISTRIBUTION WIDTH 14.1 % (11.5-15.2)
[2016-12-12 05:40] LABS: ALBUMIN 4.2 g/dL (3.5-5.0); ANION GAP 11 mEq/L (8-16); CALCIUM 9.7 mg/dL (8.5-10.4); CARBON DIOXIDE 25 mEq/l (22-31); CHLORIDE 105 mEq/L (97-110); CREATININE 2.4 mg/dL (0.6-1.0); GLOMERULAR FILTRATION RATE 20; GLUCOSE 93 mg/dL (70-100); POTASSIUM 4.9 mEq/L (3.5-5.2); SODIUM 141 mEq/L (134-144)
[2016-12-12] MEDS: ACETAMINOPHEN 325 MG TAB PO PRN (06:23)
[2016-12-12] MEDS: CARVEDILOL 3.125 MG TAB PO SCH ×3 (08:40→17:20)
[2016-12-12] MEDS: BUDESONIDE/FORMOTEROL 160/4.5 60 PUFFS/MDI IH SCH ×2 (08:51→22:16)
[2016-12-12] MEDS ORDERED: diphenhydrAMINE 50 MG CAP PO ONE (09:00)
--- NOTE | 2016-12-12 09:00 | SOAPPROG ---
SOAP Progress Note Assessment/Plan: Assessment: 1. Accelerated hypertension 2. Diastolic CHF 3. 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 CKD IV, b/l creat low 2s 5. Solitary R kidney, prior L NTX for RCC BP reasonably controlled off cardene for now (160-180). Continue coreg. For angiogram later this am. Give HCO3 gtt per protocol, mucomyst. Premed with benadryl, solumedrol given known contrast allergy. Hold lasix, resume later tonight or in am. Plan: 12/12/16 08:55 Subjective: Able to come off cardene drip over night. Dyspnea, swelling improved with lasix. Objective: Vital Signs Temp Pulse Resp BP Pulse Ox 36.8 C 69 18 160/63 H 95 12/12/16 00:00 12/12/16 08:00 12/12/16 07:00 12/12/16 08:00 12/12/16 07:00 Laboratory Results 12/12/16 04:48 12/12/16 04:48 12/11/16 12/12/16 12/13/16 05:59 05:59 05:59 Intake Total 435 967 Output Total 1800 Balance 435 -833 PT 14.1 SEC (12.0-15.0) 12/11/16 03:40 INR 1.10 (0.83-1.16) 12/11/16 03:40 Comfortable, obese wf sitting in bed RRR, 1/6 SHARON R basilar inspiratory wheezes, otherwise CTA Abdom obese, nontender, no renal artery bruit 1+ ankle edema ICD10 Worksheet Patient Problems: Problems Problem Status Onset Opiate or related narcotic overdose Acute Acute renal insufficiency Acute Pulmonary edema Acute
--- NOTE | 2016-12-12 09:10 | PDINTPN ---
Oil Well Engineer Progress Note Assessment/Plan: Assessment: * Hypertensive urgency-currently on nicardipine drip -improved * Renal artery stenosis-renal angiogram today with possible stent placement * Chronic obstructive pulmonary disease-stable -continue metered-dose inhalers * Chronic renal insufficiency-per Nephrology Plan: Continue current care Subjective: Resting comfortably. Denies any chest pain. There is no breathlessness. Objective: Vital Signs Temp Pulse Resp BP Pulse Ox 36.8 C 64 16 160/63 H 100 12/12/16 00:00 12/12/16 08:54 12/12/16 08:54 12/12/16 08:00 12/12/16 08:54 Laboratory Results 12/12/16 04:48 12/12/16 04:48 12/11/16 12/12/16 12/13/16 05:59 05:59 05:59 Intake Total 435 967 Output Total 1800 Balance 435 -833 PT 14.1 SEC (12.0-15.0) 12/11/16 03:40 INR 1.10 (0.83-1.16) 12/11/16 03:40 Physical Exam - Physical Exam General Appearance: alert, no apparent distress EENT: PERRL/EOMI, normal ENT inspection, pharynx normal, TMs normal Neck: non-tender, full range of motion, supple, normal inspection Respiratory: prolonged expiration, No respiratory distress, No wheezing Cardiac/Chest: normal peripheral pulses, regular rate, rhythm Peripheral Pulses: 2+: carotid (R), carotid (L), femoral (R), femoral (L), dorsalis-pedis (R), dorsalis-pedis (L) Abdomen: normal bowel sounds, non-tender, soft Pelvic Exam: deferred Rectal: deferred Skin: normal color, warm/dry ICD10 Worksheet Patient Problems: Problems Problem Status Onset Pulmonary edema Acute Acute renal insufficiency Acute Opiate or related narcotic overdose Acute
[2016-12-12] MEDS: SODIUM BICARBONATE 150 MEQ in D5W 1,000 ML IV SCH ×2 (09:29→09:32)
[2016-12-12] MEDS: ACETYLCYSTEINE 20% IH/PO 30 ML VIAL PO SCH ×2 (09:41→21:53)
[2016-12-12] MEDS ORDERED: ALBUTEROL 3 ML DEYVIAL ONE (09:43)
[2016-12-12] MEDS ORDERED: HYDROCORTISONE 100 MG/2 ML VIAL IVP ONE (10:00)
[2016-12-12] MEDS ORDERED: FLUMAZENIL 0.5 MG/5 ML MDV IVP ONE (10:29)
[2016-12-12] MEDS ORDERED: NALOXONE HCL 0.4 MG/ML INJ ONE (10:29)
[2016-12-12] MEDS ORDERED: fentaNYL 100 MCG/2 ML INJ ONE ×2 (10:30→12:03)
[2016-12-12] MEDS ORDERED: MIDAZOLAM 2 MG/2 ML VIAL ONE ×2 (10:30→12:03)
[2016-12-12] MEDS ORDERED: HEPARIN 10,000 UNIT/10 ML MDV ONE (12:18)
[2016-12-12] MEDS ORDERED: IOPAMIDOL (ISOVUE-370) 150 ML BTL IV ONE (12:19)
[2016-12-12] MEDS ORDERED: IOPAMIDOL (ISOVUE-300) 100 ML BTL IV ONE (12:19)
--- NOTE | 2016-12-12 13:45 | CPEKG ---
Heart Rate: 81 RR Interval: 741 P-R Interval: 180 QRSD Interval: 80 QT Interval: 384 QTC Interval: 446 P Grimsley: 58 QRS Grimsley: 52 T Wave Grimsley: 9 EKG Severity - ABNORMAL ECG - EKG Impression: SINUS RHYTHM EKG Impression: LEFT VENTRICULAR HYPERTROPHY Electronically Signed By: Sarath Villagomez 12-Dec-2016 18:12:32
[2016-12-12] MEDS: niCARdipine/NACL 200 ML IV SCH ×2 (13:46→21:00)
[2016-12-12] MEDS: HYDROCODONE/APAP 5/325 TAB PO PRN (13:48)
--- NOTE | 2016-12-12 13:57 | POSTOPPROG ---
Post Op Note Date of Operation: 12/12/16 Surgeon: Cedric Neri Anesthesia: IV Sedation Pre-op Diagnosis: Malignant hypertension Post-op Diagnosis: Severe right renal artery stenosis Indication: Hypertension, mild chronic renal failure, solitary kidney Procedure: Attempted balloon angioplasty of right renal artery Findings: Severe stenosis of right renal artery. Technical failure to balloon Inf/Abcess present in the surg proc area at time of surgery?: No EBL: 50-100 Complications: 0
--- NOTE | 2016-12-12 14:28 | HOSPPROG ---
Hospitalist Progress Note Assessment/Plan: * Hypertensive urgency * blood pressure adequate on cardene gtt * nephrology help appreciated * recurrent severe renal artery stenosis * unable to be ballooned open * will have to talk to Nephrology. Not sure this is a vascular case that Dr. Lyman does. May need [facility] to [facility] *CKD * at close to baseline creatinine * watch carefully after contrast *edema * can restart Lasix tomorrow *atherosclerosis * start statin and asa on dc Subjective: feeling better. Objective: Vital Signs Temp Pulse Resp BP Pulse Ox 37 C 83 19 188/77 H 87 L 12/12/16 10:00 12/12/16 13:40 12/12/16 13:40 12/12/16 13:40 12/12/16 13:40 Laboratory Results 12/12/16 04:48 12/12/16 04:48 12/11/16 12/12/16 12/13/16 05:59 05:59 05:59 Intake Total 435 967 Output Total 1800 600 Balance 435 -833 -600 PT 14.1 SEC (12.0-15.0) 12/11/16 03:40 INR 1.10 (0.83-1.16) 12/11/16 03:40 Discussed with pulmonology and Interventional Radiology tele personally viewed interpreted normal sinus rhythm - Physical Exam Constitutional: no apparent distress, appears nourished, not in pain Eyes: anicteric sclera, EOMI Ears, Nose, Mouth, Throat: moist mucous membranes, hearing normal, ears appear normal Cardiovascular: regular rate and rhythym, no murmur, rub, or gallop, edema Respiratory: no respiratory distress, no rales or rhonchi, clear to auscultation Gastrointestinal: normoactive bowel sounds, soft, non-tender abdomen, no palpable masses Skin: warm Neurologic: AAOx3 Psychiatric: interacting appropriately, not anxious, not encephalopathic, thought process linear ICD10 Worksheet Patient Problems: Problems Problem Status Onset Pulmonary edema Acute Acute renal insufficiency Acute Opiate or related narcotic overdose Acute
[2016-12-12] MEDS ORDERED: FUROSEMIDE 40 MG/4 ML VIAL IVP ONE (16:00)
[2016-12-12] MEDS: NICOTINE 14 MG/24 HR PATCH TD SCH (18:18)
[2016-12-12] MEDS: HEPARIN 5,000 UNIT/0.5 ML SYR SC SCH (21:54)
[2016-12-12] MEDS: ESCITALOPRAM OXALATE 10 MG TAB PO SCH (21:54)
[2016-12-12] MEDS: GABAPENTIN 300 MG CAP PO SCH (21:54)
[2016-12-12] MEDS: GABAPENTIN 100 MG CAP PO SCH (21:54)
[2016-12-12] MEDS: traZODone 50 MG TAB PO SCH (21:54)
[2016-12-13 04:57] LABS: ALBUMIN 4.2 g/dL (3.5-5.0); ANION GAP 16 mEq/L (8-16); CALCIUM 8.9 mg/dL (8.5-10.4); CARBON DIOXIDE 20 mEq/l (22-31); CHLORIDE 102 mEq/L (97-110); CREATININE 4.1 mg/dL (0.6-1.0); GLOMERULAR FILTRATION RATE 11; GLUCOSE 92 mg/dL (70-100); POTASSIUM 5.1 mEq/L (3.5-5.2); SODIUM 138 mEq/L (134-144)
[2016-12-13] MEDS: HEPARIN 5,000 UNIT/0.5 ML SYR SC SCH ×3 (06:29→21:37)
[2016-12-13] MEDS: CARVEDILOL 3.125 MG TAB PO SCH ×2 (08:15→17:11)
[2016-12-13] MEDS: NICOTINE 14 MG/24 HR PATCH TD SCH (08:15)
[2016-12-13] MEDS: ACETYLCYSTEINE 20% IH/PO 30 ML VIAL PO SCH ×2 (08:30→21:40)
[2016-12-13] MEDS: BUDESONIDE/FORMOTEROL 160/4.5 60 PUFFS/MDI IH SCH ×2 (08:39→21:41)
[2016-12-13] MEDS ORDERED: NS 1,000 ML IV SCH (10:15)
--- NOTE | 2016-12-13 10:16 | SOAPPROG ---
SOAP Progress Note Assessment/Plan: Assessment: 1. AMARILIS Likely worsened stenosis, contrast, or AE following attempt yesterday, vs IV volume depletion and HTN correcting. Making urine, so artery is not completely occluded. Will give a small amount of IVF. Keep on Low K diet. Start oral bicarb. Monitor serial labs. Counseled Patient. She is aware that she may require temporary or permanent dialysis. 2. Diastolic Heart Failure Well compensated. Would like to maximize volume status without creating heart failure. 3. YENNY in solitary kidney with underlying CKD Difficult situation. Maintain Cardene, current SBP of 170 is good. 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 Prophylax with bicarb. Plan: 12/13/16 10:12 Subjective: Doing fairly well. Objective: Vital Signs Temp Pulse Resp BP Pulse Ox 36.7 C 76 17 164/55 H 95 12/13/16 08:00 12/13/16 08:39 12/13/16 08:39 12/13/16 08:00 12/13/16 08:39 Laboratory Results 12/12/16 04:48 12/13/16 04:15 12/12/16 12/13/16 12/14/16 05:59 05:59 05:59 Intake Total 967 1501 Output Total 1800 1200 Balance -833 301 PT 14.1 SEC (12.0-15.0) 12/11/16 03:40 INR 1.10 (0.83-1.16) 12/11/16 03:40 Physical Exam - Physical Exam General Appearance: no apparent distress Respiratory: lungs clear Cardiac/Chest: regular rate, rhythm Extremities: normal inspection Neuro/Psych: oriented x 3 ICD10 Worksheet Patient Problems: Problems Problem Status Onset Pulmonary edema Acute Acute renal insufficiency Acute Opiate or related narcotic overdose Acute
[2016-12-13] MEDS: HYDROCODONE/APAP 5/325 TAB PO PRN ×3 (11:59→22:40)
[2016-12-13] MEDS: SODIUM BICARBONATE 650 MG TAB PO SCH ×3 (12:00→21:37)
[2016-12-13] MEDS: niCARdipine/NACL 200 ML IV SCH ×2 (13:00→17:11)
--- NOTE | 2016-12-13 15:31 | HOSPPROG ---
Hospitalist Progress Note Assessment/Plan: * Hypertensive urgency * blood pressure adequate on cardene gtt * nephrology help appreciated * recurrent severe renal artery stenosis * unable to be ballooned open * will try again tomorrow *CKD * worse today * diuretics are held *edema * holding diuretics *atherosclerosis * start statin and asa on dc * has been intolerant of statins in the past Subjective: no new complaints. after she came back from IR yesterday she was dyspneic with increased oxygen requirement and thus Lasix was given Objective: Vital Signs Temp Pulse Resp BP Pulse Ox 36.7 C 74 17 182/74 H 98 12/13/16 08:00 12/13/16 14:00 12/13/16 14:00 12/13/16 14:00 12/13/16 14:00 Laboratory Results 12/12/16 04:48 12/12/16 12/13/16 12/14/16 05:59 05:59 05:59 Intake Total 967 1501 Output Total 1800 1200 Balance -833 301 PT 14.1 SEC (12.0-15.0) 12/11/16 03:40 INR 1.10 (0.83-1.16) 12/11/16 03:40 discussed with pulmonology - Physical Exam Constitutional: no apparent distress, appears nourished, not in pain Eyes: anicteric sclera, EOMI Ears, Nose, Mouth, Throat: moist mucous membranes, hearing normal Cardiovascular: regular rate and rhythym, no murmur, rub, or gallop Respiratory: no respiratory distress, no rales or rhonchi, clear to auscultation Gastrointestinal: normoactive bowel sounds, soft, non-tender abdomen, no palpable masses Skin: warm Neurologic: AAOx3 Psychiatric: interacting appropriately, not anxious, not encephalopathic, thought process linear ICD10 Worksheet Patient Problems: Problems Problem Status Onset Pulmonary edema Acute Acute renal insufficiency Acute Opiate or related narcotic overdose Acute
[2016-12-13 15:43] LABS: ANION GAP 14 mEq/L (8-16); CALCIUM 8.6 mg/dL (8.5-10.4); CARBON DIOXIDE 22 mEq/l (22-31); CHLORIDE 98 mEq/L (97-110); GLOMERULAR FILTRATION RATE 9; GLUCOSE 244 mg/dL (70-100); POTASSIUM 4.5 mEq/L (3.5-5.2); SODIUM 134 mEq/L (134-144)
--- NOTE | 2016-12-13 16:48 | PDINTPN ---
Chief Mate Progress Note Assessment/Plan: Assessment/plan: 66 F with solitary kidney from remote RCC admitted with hypertensive urgency from recurrent renal artery stenosis. Her BP has been relatively controlled with a Cardene drip, but the first attempt at PTCA was unsuccessful. She has COPD as well, but that has been stable. * YENNY- will re-attempt PTCA tomorrow, as she reports that usually improves both BP and O2 requirements. Continue Cardene drip for now. * COPD stable on Symbicort and prn albuterol. She remains on Carvedilol, but if additional beta blockade is needed, her COPD should not be a barrier. * AMARILIS- her creatinine is rising today. Renal managing and starting gentle IVF. Objective: Vital Signs Temp Pulse Resp BP Pulse Ox 36.7 C 70 23 H 176/55 H 98 12/13/16 08:00 12/13/16 16:00 12/13/16 16:00 12/13/16 16:00 12/13/16 16:00 Laboratory Results 12/12/16 04:48 12/13/16 15:06 12/12/16 12/13/16 12/14/16 05:59 05:59 05:59 Intake Total 967 1501 Output Total 1800 1200 Balance -833 301 PT 14.1 SEC (12.0-15.0) 12/11/16 03:40 INR 1.10 (0.83-1.16) 12/11/16 03:40 Physical Exam - Physical Exam General Appearance: WD/WN, alert, obese EENT: PERRL/EOMI Neck: full range of motion, supple Respiratory: lungs clear, normal breath sounds, No respiratory distress, No rales, No rhonchi Abdomen: normal bowel sounds, non-tender, soft, No distended Skin: normal color, warm/dry Extremities: normal range of motion, No pedal edema Neuro/Psych: alert, normal mood/affect, oriented x 3 ICD10 Worksheet Patient Problems: Problems Problem Status Onset Pulmonary edema Acute Acute renal insufficiency Acute Opiate or related narcotic overdose Acute
[2016-12-13] MEDS: GABAPENTIN 300 MG CAP PO SCH (21:37)
[2016-12-13] MEDS: ESCITALOPRAM OXALATE 10 MG TAB PO SCH (21:37)
[2016-12-13] MEDS: GABAPENTIN 100 MG CAP PO SCH (21:38)
[2016-12-13] MEDS: traZODone 50 MG TAB PO SCH (21:38)
[2016-12-14 04:42] LABS: % IMMATURE GRANULYOCYTES 0.4 % (0.0-1.1); ABSOLUTE IMMATURE GRANULOCYTES 0.05 10^3/uL (0.00-0.10); ADD DIFF? NO; ADD MORPH? NO; ADD SCAN? NO; ATYPICAL LYMPHOCYTE FLAG 0 (0-99); FRAGMENT RBC FLAG 0 (0-99); HEMATOCRIT 36.5 % (38.0-47.0); HEMOGLOBIN 11.9 g/dL (12.6-16.3); LEFT SHIFT FLG 0 (0-99); LIPEMIA HEMOLYSIS FLAG 80 (0-99); MEAN CELL HEMOGLOBIN 31.2 pg (27.9-34.1); MEAN CELL HEMOGLOBIN CONCENTR. 32.6 g/dL (32.4-36.7); MEAN CELL VOLUME 95.5 fL (81.5-99.8); MEAN PLATELET VOLUME 11.1 fL (8.7-11.7); PLATELET CLUMPS FLAG 10 (0-99); PLATELET COUNT 123 10^3/uL (150-400); RED BLOOD CELL COUNT 3.82 10^6/uL (4.18-5.33); RED CELL DISTRIBUTION WIDTH 14.1 % (11.5-15.2)
[2016-12-14 05:00] LABS: ALBUMIN 4.1 g/dL (3.5-5.0); ANION GAP 18 mEq/L (8-16); CALCIUM 8.8 mg/dL (8.5-10.4); CARBON DIOXIDE 22 mEq/l (22-31); CHLORIDE 97 mEq/L (97-110); CREATININE 6.2 mg/dL (0.6-1.0); GLOMERULAR FILTRATION RATE 7; GLUCOSE 80 mg/dL (70-100); POTASSIUM 5.4 mEq/L (3.5-5.2); SODIUM 137 mEq/L (134-144)
[2016-12-14] MEDS: HYDROCODONE/APAP 5/325 TAB PO PRN ×2 (05:18→19:51)
[2016-12-14] MEDS: HEPARIN 5,000 UNIT/0.5 ML SYR SC SCH ×3 (05:59→21:11)
[2016-12-14] MEDS: SODIUM BICARBONATE 650 MG TAB PO SCH ×4 (06:37→21:15)
[2016-12-14] MEDS ORDERED: FAMOTIDINE 20 MG/NACL 50 ML IV ONE (08:00)
[2016-12-14] MEDS ORDERED: methylPREDNISolone SOD SUCC 125 MG/2 ML VIAL IVP ONE (08:00)
[2016-12-14] MEDS: BUDESONIDE/FORMOTEROL 160/4.5 60 PUFFS/MDI IH SCH ×2 (08:28→20:18)
--- NOTE | 2016-12-14 08:54 | SOAPPROG ---
SOAP Progress Note Assessment/Plan: Assessment: 1. Renovascular hypertension 2. Diastolic CHF 3. 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 CKD IV, b/l creat low 2s 5. Solitary R kidney, prior L NTX for RCC BP reasonably controlled off cardene for now (goal sbp 170-180). Continue coreg. Unsuccessful attempt at OUTPATIENT PHARMACY MANAGER Monday. Now with AMARILIS, worsening BUN/creat and hyperkalemia. Likely due to contrast +/- BP control. Has tight right YENNY. May be difficult to recover from AMARILIS until this is fixed. I think benefit of repeat procedure outweigh risks. For angiogram again later this am via radial approach. Give HCO3 gtt per protocol. IR to place temp HD cath. Will initiate HD today, again tomorrow. Pt understands renal recovery could be weeks to months, if at all. Premed with benadryl, solumedrol given known contrast allergy. Holding lasix, resume later tonight or in am. Plan: 12/12/16 08:55 12/14/16 08:50 Subjective: Denies sob or other complaints. Had dialysis once in the past with angiogram. Willing to proceed with procedure today and dialysis. Objective: Vital Signs Temp Pulse Resp BP Pulse Ox 36.7 C 89 20 173/65 H 94 12/13/16 08:00 12/14/16 08:29 12/14/16 08:29 12/14/16 06:00 12/14/16 08:29 Laboratory Results 12/14/16 04:30 12/14/16 04:30 12/13/16 12/14/16 12/15/16 05:59 05:59 05:59 Intake Total 1501 1474 Output Total 1200 Balance 301 1474 PT 14.1 SEC (12.0-15.0) 12/11/16 03:40 INR 1.10 (0.83-1.16) 12/11/16 03:40 Comfortable wf, in chair RRR, II/ SHARON Coarse bibasilar crackles, +insp wheezes Abdom soft, nt 2+ LE pitting edema ICD10 Worksheet Patient Problems: Problems Problem Status Onset Opiate or related narcotic overdose Acute Acute renal insufficiency Acute Pulmonary edema Acute
[2016-12-14] MEDS: CARVEDILOL 3.125 MG TAB PO SCH ×2 (09:40→17:35)
[2016-12-14] MEDS ORDERED: HEPARIN 50,000 UNIT/10 ML VIAL ONE ×2 (10:17→20:15)
[2016-12-14] MEDS ORDERED: VERAPAMIL 5 MG/2 ML VIAL ONE (10:27)
[2016-12-14] MEDS ORDERED: HEPARIN 10,000 UNIT/10 ML MDV ONE ×2 (10:28→11:25)
[2016-12-14] MEDS ORDERED: NITROGLYCERIN/D5W 50 MG/250 ML BOTTLE IV ONE ×2 (10:28→10:29)
[2016-12-14] MEDS ORDERED: SODIUM BICARBONATE 150 MEQ in D5W 1,000 ML IV SCH (10:30)
[2016-12-14] MEDS ORDERED: fentaNYL 100 MCG/2 ML INJ ONE (10:43)
[2016-12-14] MEDS ORDERED: MIDAZOLAM 2 MG/2 ML VIAL ONE (10:43)
[2016-12-14] MEDS ORDERED: IOPAMIDOL (ISOVUE-300) 100 ML BTL IV ONE (11:24)
--- NOTE | 2016-12-14 12:39 | POSTOPPROG ---
Post Op Note Date of Operation: 12/14/16 Surgeon: Cedric Neri Anesthesia: IV Sedation Pre-op Diagnosis: Severe right renal artery stenosis, solitary kidney Post-op Diagnosis: Same Indication: Severe hypertension, renal failure Procedure: 1. Temp dialysis catheter 2. Angioplasty right renal artery Findings: 1. Catheter ready. 2. Successful angioplasty. Inf/Abcess present in the surg proc area at time of surgery?: No EBL: 50-100 Complications: 0
[2016-12-14] MEDS: NICOTINE 14 MG/24 HR PATCH TD SCH (13:06)
--- NOTE | 2016-12-14 15:02 | PDINTPN ---
Fly Worker Progress Note Assessment/Plan: Assessment/plan: 66 F with solitary kidney from remote RCC admitted with hypertensive urgency from recurrent renal artery stenosis. Her BP has been relatively controlled with a Cardene drip, but the first attempt at PTCA was unsuccessful. She has COPD as well, but that has been stable. * YENNY- re-attempt at PTCA * COPD stable on Symbicort and prn albuterol. She remains on Carvedilol, but if additional beta blockade is needed, her COPD should not be a barrier. * AMARILIS- went for HD catheter today and likely to get HD this afternoon 12/14/16 15:01 Objective: Vital Signs Temp Pulse Resp BP Pulse Ox 36.7 C 72 23 H 158/68 H 96 12/13/16 08:00 12/14/16 14:00 12/14/16 14:00 12/14/16 14:00 12/14/16 14:00 Laboratory Results 12/14/16 04:30 12/14/16 04:30 12/13/16 12/14/16 12/15/16 05:59 05:59 05:59 Intake Total 1501 1474 Output Total 1200 Balance 301 1474 PT 14.1 SEC (12.0-15.0) 12/11/16 03:40 INR 1.10 (0.83-1.16) 12/11/16 03:40 Physical Exam - Physical Exam General Appearance: alert, no apparent distress, obese EENT: PERRL/EOMI Neck: supple Respiratory: lungs clear, normal breath sounds, respiratory distress, No rales, No rhonchi Cardiac/Chest: normal peripheral pulses, regular rate, rhythm, No edema Abdomen: normal bowel sounds, non-tender, soft, No distended Skin: normal color, warm/dry Lymphatic: no adenopathy Extremities: No pedal edema Neuro/Psych: alert, normal mood/affect, oriented x 3 ICD10 Worksheet Patient Problems: Problems Problem Status Onset Pulmonary edema Acute Acute renal insufficiency Acute Opiate or related narcotic overdose Acute
--- NOTE | 2016-12-14 15:56 | CPEKG ---
Heart Rate: 79 RR Interval: 759 P-R Interval: 212 QRSD Interval: 90 QT Interval: 396 QTC Interval: 455 P Ripley: 37 QRS Ripley: 45 T Wave Ripley: 78 EKG Severity - ABNORMAL ECG - EKG Impression: SINUS RHYTHM EKG Impression: PROBABLE LVH WITH SECONDARY REPOL ABNRM Electronically Signed By: Sarath Romo 15-Dec-2016 10:12:27
--- NOTE | 2016-12-14 16:58 | HOSPPROG ---
Hospitalist Progress Note Assessment/Plan: * Hypertensive urgency * blood pressure adequate on cardene gtt * will see will blood pressure does the next 24-48 hours after renal artery has been opened up. I am hesitant to add any new oral antihypertensives and risk decreased profusion * would continue Cardene drip for now. could decrease goal to 140-160 systolic * recurrent severe renal artery stenosis * was able to be angioplastied after 2nd attempt * eventually will need bypass * acute on chronic kidney disease * most likely due to contrast nephropathy in setting of limited perfusion * worse today * dialysis catheter placed and will be getting dialysis *edema/ diastolic heart failure * holding diuretics *atherosclerosis * start statin and asa on dc * has been intolerant of statins in the past Subjective: no new complaints. Successful angioplasty of right renal artery. Finish dialysis Objective: Vital Signs Temp Pulse Resp BP Pulse Ox 36.7 C 82 17 165/69 H 4 L 12/13/16 08:00 12/14/16 16:00 12/14/16 16:00 12/14/16 16:00 12/14/16 16:00 Laboratory Results 12/14/16 04:30 12/14/16 04:30 12/13/16 12/14/16 12/15/16 05:59 05:59 05:59 Intake Total 1501 1474 Output Total 1200 Balance 301 1474 PT 14.1 SEC (12.0-15.0) 12/11/16 03:40 INR 1.10 (0.83-1.16) 12/11/16 03:40 discuss with Interventional Radiology and pulmonology tele personally viewed interpreted normal sinus rhythm - Physical Exam Constitutional: no apparent distress, appears nourished, not in pain Eyes: anicteric sclera, EOMI Ears, Nose, Mouth, Throat: moist mucous membranes, hearing normal, ears appear normal Cardiovascular: regular rate and rhythym, no murmur, rub, or gallop Respiratory: no respiratory distress, no rales or rhonchi, clear to auscultation Gastrointestinal: normoactive bowel sounds, soft, non-tender abdomen, no palpable masses Skin: warm Neurologic: AAOx3 Psychiatric: interacting appropriately, not anxious, not encephalopathic, thought process linear ICD10 Worksheet Patient Problems: Problems Problem Status Onset Pulmonary edema Acute Acute renal insufficiency Acute Opiate or related narcotic overdose Acute
[2016-12-14] MEDS: niCARdipine/NACL 200 ML IV SCH ×2 (17:03→21:41)
[2016-12-14] MEDS: ESCITALOPRAM OXALATE 10 MG TAB PO SCH (21:15)
[2016-12-14] MEDS: GABAPENTIN 300 MG CAP PO SCH (21:15)
[2016-12-14] MEDS: GABAPENTIN 100 MG CAP PO SCH (21:15)
[2016-12-14] MEDS: traZODone 50 MG TAB PO SCH (21:15)
[2016-12-15] MEDS: niCARdipine/NACL 200 ML IV SCH ×4 (02:24→17:48)
[2016-12-15] MEDS: SODIUM BICARBONATE 650 MG TAB PO SCH (06:06)
[2016-12-15] MEDS: HEPARIN 5,000 UNIT/0.5 ML SYR SC SCH ×3 (06:19→21:26)
[2016-12-15 06:30] LABS: % IMMATURE GRANULYOCYTES 0.6 % (0.0-1.1); ABSOLUTE IMMATURE GRANULOCYTES 0.07 10^3/uL (0.00-0.10); ADD DIFF? NO; ADD MORPH? NO; ADD SCAN? NO; ATYPICAL LYMPHOCYTE FLAG 0 (0-99); FRAGMENT RBC FLAG 0 (0-99); HEMATOCRIT 33.4 % (38.0-47.0); LEFT SHIFT FLG 0 (0-99); LIPEMIA HEMOLYSIS FLAG 80 (0-99); MEAN CELL HEMOGLOBIN 30.8 pg (27.9-34.1); MEAN CELL HEMOGLOBIN CONCENTR. 32.9 g/dL (32.4-36.7); MEAN CELL VOLUME 93.6 fL (81.5-99.8); MEAN PLATELET VOLUME 11.3 fL (8.7-11.7); PLATELET CLUMPS FLAG 10 (0-99); PLATELET COUNT 121 10^3/uL (150-400); RED BLOOD CELL COUNT 3.57 10^6/uL (4.18-5.33); RED CELL DISTRIBUTION WIDTH 13.9 % (11.5-15.2)
[2016-12-15 06:58] LABS: ALBUMIN 3.8 g/dL (3.5-5.0); ANION GAP 13 mEq/L (8-16); CALCIUM 8.9 mg/dL (8.5-10.4); CARBON DIOXIDE 26 mEq/l (22-31); CHLORIDE 100 mEq/L (97-110); CREATININE 4.1 mg/dL (0.6-1.0); GLOMERULAR FILTRATION RATE 11; GLUCOSE 139 mg/dL (70-100); POTASSIUM 4.6 mEq/L (3.5-5.2); SODIUM 139 mEq/L (134-144)
[2016-12-15] MEDS: HYDROCODONE/APAP 5/325 TAB PO PRN ×3 (07:33→18:49)
[2016-12-15] MEDS: CARVEDILOL 3.125 MG TAB PO SCH ×2 (07:34→17:48)
[2016-12-15] MEDS: NICOTINE 14 MG/24 HR PATCH TD SCH (08:31)
[2016-12-15] MEDS: BUDESONIDE/FORMOTEROL 160/4.5 60 PUFFS/MDI IH SCH ×2 (08:32→21:27)
--- NOTE | 2016-12-15 10:52 | SOAPPROG ---
SOAP Progress Note Assessment/Plan: Assessment/Plan: AMARILIS on CKD stage IV: pt with solitary kidney and baseline Cr in low 2 range. Cr worse in setting of malignant HTn and known renal artery stenosis, pt reports being nonoliguric. HD #1 done yesterday. - HD being done again today. - Will continue to monitor renal parameters closely for renal recovery. - Strict I/Os. - Avoid MOM, morphine, demerol, NSAIDs, contrast aminoglycosides, fleets, and other nephrotoxins. - Avoid hypotension. Malignant HTN: in setting of solitary kidney and renal artery stenosis. Pt now s/p successful angioplasty yesterday. Pt is again on nicardipine ggt. Hyperkalemia: improved with HD, will continue to monitor. Metabolic acidosis: improved with HD, will stop bicarb tabs and continue to monitor. Subjective: No acute events overnight. Pt had HD #1 yesterday, tolerated well, getting HD this am with no complaints. She states she is still urinating well. She is back on Cardene drip. Objective: Vital Signs Temp Pulse Resp BP Pulse Ox 36.5 C 65 18 145/48 H 91 L 12/15/16 06:18 12/15/16 08:00 12/15/16 08:00 12/15/16 08:00 12/15/16 08:00 Laboratory Results 12/15/16 06:10 12/15/16 06:10 12/14/16 12/15/16 12/16/16 05:59 05:59 05:59 Intake Total 1474 1819.8 Output Total 1 Balance 1474 1818.8 PT 14.1 SEC (12.0-15.0) 12/11/16 03:40 INR 1.10 (0.83-1.16) 12/11/16 03:40 General: alert and oriented, no acute distress Eyes; EOMI, PERRL OP: Clear CV: RRR Resp: nonlabored respirations Abd: soft, NT Ext: no edema BLE Neuro: CN II-XII grossly intact, no asterixis Psych: cooperative, appropriate mood and affect Access: R IJ temp cath, placed 12/14/16 ICD10 Worksheet Patient Problems: Problems Problem Status Onset Pulmonary edema Acute Acute renal insufficiency Acute Opiate or related narcotic overdose Acute
[2016-12-15 15:05] LABS: HEPATITIS Bs Ab QUANT <5.0 mIU/mL
--- NOTE | 2016-12-15 16:39 | HOSPPROG ---
Hospitalist Progress Note Assessment/Plan: 66 yo f solitary kidney, recurrent YENNY, hypertensive urgency Hypertensive urgency * blood pressure adequate on cardene gtt * will see will blood pressure does the next 24-48 hours after renal artery has been opened up. I am hesitant to add any new oral antihypertensives and risk decreased profusion * would continue Cardene drip for now. goal 160 systolic recurrent severe renal artery stenosis * was able to be angioplastied after 2nd attempt * eventually will need bypass acute on chronic kidney disease * most likely due to contrast nephropathy in setting of limited perfusion * worse today * dialysis catheter placed and will be getting dialysis making urine which is encouraging edema/ diastolic heart failure * holding diuretics atherosclerosis * start statin and asa on dc * has been intolerant of statins in the past dispo: inpt proph: start SC heparin in AM if no further procedures Subjective: tele: pvc's (interp by me). case d/w dr ospina Objective: Vital Signs Temp Pulse Resp BP Pulse Ox 36.5 C 69 23 H 160/55 H 94 12/15/16 06:18 12/15/16 16:00 12/15/16 16:00 12/15/16 16:00 12/15/16 16:00 Laboratory Results 12/15/16 06:10 12/15/16 06:10 12/14/16 12/15/16 12/16/16 05:59 05:59 05:59 Intake Total 1474 1819.8 Output Total 1 Balance 1474 1818.8 PT 14.1 SEC (12.0-15.0) 12/11/16 03:40 INR 1.10 (0.83-1.16) 12/11/16 03:40 - Physical Exam Constitutional: no apparent distress, appears nourished Eyes: PERRL, anicteric sclera Ears, Nose, Mouth, Throat: moist mucous membranes, hearing normal Cardiovascular: regular rate and rhythym, no murmur, rub, or gallop Respiratory: no respiratory distress, no rales or rhonchi Gastrointestinal: normoactive bowel sounds, soft, non-tender abdomen Genitourinary: No matthews in urethra Skin: warm Musculoskeletal: full muscle strength, no muscle tenderness Neurologic: AAOx3, sensation intact bilaterally Psychiatric: interacting appropriately, not anxious Lymph, Heme, Immunologic: no cervical LAD ICD10 Worksheet Patient Problems: Problems Problem Status Onset Pulmonary edema Acute Acute renal insufficiency Acute Opiate or related narcotic overdose Acute
--- NOTE | 2016-12-15 16:49 | PDINTPN ---
Mobile Development Manager Progress Note Assessment/Plan: Assessment/plan: 66 F with solitary kidney from remote RCC admitted with hypertensive urgency from recurrent renal artery stenosis. Her BP has been relatively controlled with a Cardene drip, but the first attempt at PTCA was unsuccessful. She has COPD as well, but that has been stable. * YENNY- re-attempt at PTCA was successful. Attempting to titrate off cardene drip * COPD stable on Symbicort and prn albuterol. She remains on Carvedilol, but if additional beta blockade is needed, her COPD should not be a barrier. * AMARILIS- getting HD this am Objective: Vital Signs Temp Pulse Resp BP Pulse Ox 36.5 C 69 23 H 160/55 H 94 12/15/16 06:18 12/15/16 16:00 12/15/16 16:00 12/15/16 16:00 12/15/16 16:00 Laboratory Results 12/15/16 06:10 12/15/16 06:10 12/14/16 12/15/16 12/16/16 05:59 05:59 05:59 Intake Total 1474 1819.8 Output Total 1 Balance 1474 1818.8 PT 14.1 SEC (12.0-15.0) 12/11/16 03:40 INR 1.10 (0.83-1.16) 12/11/16 03:40 Physical Exam - Physical Exam General Appearance: WD/WN, alert, obese EENT: PERRL/EOMI Neck: supple Respiratory: lungs clear, normal breath sounds, No respiratory distress Cardiac/Chest: normal peripheral pulses, regular rate, rhythm Abdomen: normal bowel sounds, non-tender, soft, No distended Skin: normal color, warm/dry Lymphatic: no adenopathy Extremities: non-tender, pedal edema Neuro/Psych: alert, normal mood/affect, oriented x 3 ICD10 Worksheet Patient Problems: Problems Problem Status Onset Pulmonary edema Acute Acute renal insufficiency Acute Opiate or related narcotic overdose Acute
[2016-12-15] MEDS: GABAPENTIN 100 MG CAP PO SCH (21:25)
[2016-12-15] MEDS: GABAPENTIN 300 MG CAP PO SCH (21:25)
[2016-12-15] MEDS: traZODone 50 MG TAB PO SCH (21:25)
[2016-12-15] MEDS: ESCITALOPRAM OXALATE 10 MG TAB PO SCH (21:25)
[2016-12-16 04:17] LABS: % IMMATURE GRANULYOCYTES 0.6 % (0.0-1.1); ABSOLUTE IMMATURE GRANULOCYTES 0.06 10^3/uL (0.00-0.10); ADD DIFF? NO; ADD MORPH? NO; ADD SCAN? NO; ATYPICAL LYMPHOCYTE FLAG 0 (0-99); FRAGMENT RBC FLAG 0 (0-99); HEMATOCRIT 30.3 % (38.0-47.0); HEMOGLOBIN 9.8 g/dL (12.6-16.3); LEFT SHIFT FLG 0 (0-99); LIPEMIA HEMOLYSIS FLAG 80 (0-99); MEAN CELL HEMOGLOBIN 31.3 pg (27.9-34.1); MEAN CELL HEMOGLOBIN CONCENTR. 32.3 g/dL (32.4-36.7); MEAN CELL VOLUME 96.8 fL (81.5-99.8); MEAN PLATELET VOLUME 11.5 fL (8.7-11.7); PLATELET CLUMPS FLAG 0 (0-99); PLATELET COUNT 115 10^3/uL (150-400); RED BLOOD CELL COUNT 3.13 10^6/uL (4.18-5.33); RED CELL DISTRIBUTION WIDTH 14.5 % (11.5-15.2)
[2016-12-16] MEDS: HEPARIN 5,000 UNIT/0.5 ML SYR SC SCH ×3 (04:31→20:39)
[2016-12-16 04:37] LABS: ALBUMIN 3.3 g/dL (3.5-5.0); ANION GAP 8 mEq/L (8-16); CALCIUM 8.8 mg/dL (8.5-10.4); CARBON DIOXIDE 29 mEq/l (22-31); CHLORIDE 103 mEq/L (97-110); CREATININE 2.4 mg/dL (0.6-1.0); GLOMERULAR FILTRATION RATE 20; GLUCOSE 105 mg/dL (70-100); POTASSIUM 4.8 mEq/L (3.5-5.2); SODIUM 140 mEq/L (134-144)
[2016-12-16] MEDS: niCARdipine/NACL 200 ML IV SCH ×2 (05:18→14:12)
[2016-12-16] MEDS: HYDROCODONE/APAP 5/325 TAB PO PRN ×3 (05:18→22:25)
[2016-12-16] MEDS: CARVEDILOL 3.125 MG TAB PO SCH ×2 (08:22→18:52)
[2016-12-16] MEDS: NICOTINE 14 MG/24 HR PATCH TD SCH (08:22)
[2016-12-16] MEDS: BUDESONIDE/FORMOTEROL 160/4.5 60 PUFFS/MDI IH SCH ×2 (10:12→19:39)
--- NOTE | 2016-12-16 16:13 | HOSPPROG ---
Hospitalist Progress Note Assessment/Plan: 66 yo f solitary kidney, recurrent YENNY, hypertensive urgency Hypertensive urgency * off nicardipine gtt w sbp in 150's * alert * good uop * follow- this suggests improved renal perfusion * recurrent severe renal artery stenosis * was able to be angioplastied after 2nd attempt * eventually will need bypass acute on chronic kidney disease * most likely due to contrast nephropathy in setting of limited perfusion * improving but has been on HD * dialysis catheter placed; HD on 12/14 and 12/15 making urine which is encouraging edema/ diastolic heart failure * holding diuretics atherosclerosis * start statin and asa on dc * has been intolerant of statins in the past dispo: inpt proph: start SC heparin in AM if no further procedures Subjective: tele: no events (interp by me). case d/w dr ospina Objective: Vital Signs Temp Pulse Resp BP Pulse Ox 35.9 C L 70 16 154/106 H 98 12/16/16 08:00 12/16/16 14:00 12/16/16 14:00 12/16/16 14:00 12/16/16 14:00 Laboratory Results 12/16/16 04:10 12/16/16 04:10 12/15/16 12/16/16 12/17/16 05:59 05:59 05:59 Intake Total 1819.8 1502 Output Total 1 670 Balance 1818.8 1502 -670 PT 14.1 SEC (12.0-15.0) 12/11/16 03:40 INR 1.10 (0.83-1.16) 12/11/16 03:40 - Physical Exam Constitutional: no apparent distress, appears nourished Eyes: PERRL, anicteric sclera Ears, Nose, Mouth, Throat: moist mucous membranes, hearing normal Cardiovascular: regular rate and rhythym, no murmur, rub, or gallop Respiratory: no respiratory distress, no rales or rhonchi Gastrointestinal: normoactive bowel sounds, soft, non-tender abdomen Genitourinary: No matthews in urethra Skin: warm Musculoskeletal: full muscle strength, no muscle tenderness Neurologic: AAOx3 ICD10 Worksheet Patient Problems: Problems Problem Status Onset Pulmonary edema Acute Acute renal insufficiency Acute Opiate or related narcotic overdose Acute
--- NOTE | 2016-12-16 16:27 | SOAPPROG ---
SOAP Progress Note Assessment/Plan: Assessment: 1. arf: DULCE +/- ischemic atn. Excellent uo, lytes ok, will re-eval needs for hd based on am labs. My suspicion is that she may not require further hd but would not d/c hd cath until this is quite clear. 2. 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 Bp improved, non-oliguric. Cont current meds. 3. HyperK: resolved s/p hd Plan: 12/16/16 16:25 Subjective: Feeling well, off nicardipine. Uo nearly 700ml past 4hrs. Objective: Vital Signs Temp Pulse Resp BP Pulse Ox 35.9 C L 70 16 154/106 H 98 12/16/16 08:00 12/16/16 14:00 12/16/16 14:00 12/16/16 14:00 12/16/16 14:00 Laboratory Results 12/16/16 04:10 12/16/16 04:10 12/15/16 12/16/16 12/17/16 05:59 05:59 05:59 Intake Total 1819.8 1502 Output Total 1 670 Balance 1818.8 1502 -670 PT 14.1 SEC (12.0-15.0) 12/11/16 03:40 INR 1.10 (0.83-1.16) 12/11/16 03:40 Physical Exam - Physical Exam General Appearance: no apparent distress Respiratory: rhonchi (occ scattered) Cardiac/Chest: regular rate, rhythm Extremities: pedal edema (1+) ICD10 Worksheet Patient Problems: Problems Problem Status Onset Pulmonary edema Acute Acute renal insufficiency Acute Opiate or related narcotic overdose Acute
[2016-12-16] MEDS: ESCITALOPRAM OXALATE 10 MG TAB PO SCH (20:39)
[2016-12-16] MEDS: GABAPENTIN 300 MG CAP PO SCH (20:39)
[2016-12-16] MEDS: traZODone 50 MG TAB PO SCH (20:39)
[2016-12-16] MEDS: GABAPENTIN 100 MG CAP PO SCH (20:39)
[2016-12-17 04:38] LABS: % IMMATURE GRANULYOCYTES 0.6 % (0.0-1.1); ABSOLUTE IMMATURE GRANULOCYTES 0.05 10^3/uL (0.00-0.10); ADD DIFF? NO; ADD MORPH? NO; ADD SCAN? NO; ATYPICAL LYMPHOCYTE FLAG 0 (0-99); FRAGMENT RBC FLAG 0 (0-99); HEMATOCRIT 31.1 % (38.0-47.0); HEMOGLOBIN 9.8 g/dL (12.6-16.3); LEFT SHIFT FLG 0 (0-99); LIPEMIA HEMOLYSIS FLAG 80 (0-99); MEAN CELL HEMOGLOBIN 31.1 pg (27.9-34.1); MEAN CELL HEMOGLOBIN CONCENTR. 31.5 g/dL (32.4-36.7); MEAN CELL VOLUME 98.7 fL (81.5-99.8); MEAN PLATELET VOLUME 11.6 fL (8.7-11.7); PLATELET CLUMPS FLAG 10 (0-99); PLATELET COUNT 123 10^3/uL (150-400); RED BLOOD CELL COUNT 3.15 10^6/uL (4.18-5.33); RED CELL DISTRIBUTION WIDTH 14.6 % (11.5-15.2)
[2016-12-17 05:01] LABS: ALBUMIN 3.1 g/dL (3.5-5.0); ANION GAP 6 mEq/L (8-16); CARBON DIOXIDE 28 mEq/l (22-31); CHLORIDE 104 mEq/L (97-110); CREATININE 2.4 mg/dL (0.6-1.0); GLOMERULAR FILTRATION RATE 20; GLUCOSE 79 mg/dL (70-100); POTASSIUM 4.8 mEq/L (3.5-5.2); SODIUM 138 mEq/L (134-144)
[2016-12-17] MEDS: HEPARIN 5,000 UNIT/0.5 ML SYR SC SCH ×3 (05:28→21:03)
[2016-12-17] MEDS: BUDESONIDE/FORMOTEROL 160/4.5 60 PUFFS/MDI IH SCH ×2 (08:29→20:40)
[2016-12-17] MEDS: CARVEDILOL 3.125 MG TAB PO SCH ×2 (08:37→19:17)
[2016-12-17] MEDS: HYDROCODONE/APAP 5/325 TAB PO PRN ×3 (09:09→20:40)
[2016-12-17] MEDS: NICOTINE 7 MG/24 HR PATCH TD SCH (11:31)
[2016-12-17] MEDS: NICOTINE 14 MG/24 HR PATCH TD SCH (11:32)
--- NOTE | 2016-12-17 14:24 | HOSPPROG ---
Hospitalist Progress Note Assessment/Plan: 66 yo f solitary kidney, recurrent YENNY, hypertensive urgency Hypertensive urgency * off nicardipine gtt w sbp in 150's * one low noted; follow * alert * good uop * follow- this suggests improved renal perfusion * recurrent severe renal artery stenosis * was able to be angioplastied after 2nd attempt * eventually will need bypass acute on chronic kidney disease * most likely due to contrast nephropathy in setting of limited perfusion * improving and now off HD * dialysis catheter placed; HD on 12/14 and 12/15 making urine which is encouraging edema/ diastolic heart failure * holding diuretics atherosclerosis * start statin and asa on dc * has been intolerant of statins in the past dispo: inpt home in AM if cr stable proph: sc heparin Subjective: cr stable off HD. tele: no events (interp by me). case d/w dr cameron Objective: Vital Signs Temp Pulse Resp BP Pulse Ox 36.8 C 64 20 111/87 H 96 12/17/16 08:00 12/17/16 13:59 12/17/16 13:59 12/17/16 13:59 12/17/16 13:59 Laboratory Results 12/17/16 04:35 12/17/16 04:35 12/16/16 12/17/16 12/18/16 05:59 05:59 05:59 Intake Total 1502 1800 Output Total 2645 1200 Balance 1502 -845 -1200 PT 14.1 SEC (12.0-15.0) 12/11/16 03:40 INR 1.10 (0.83-1.16) 12/11/16 03:40 - Physical Exam Constitutional: no apparent distress, appears nourished Eyes: PERRL, anicteric sclera Ears, Nose, Mouth, Throat: moist mucous membranes, hearing normal Cardiovascular: regular rate and rhythym, no murmur, rub, or gallop Respiratory: no respiratory distress, no rales or rhonchi Gastrointestinal: normoactive bowel sounds, soft, non-tender abdomen Genitourinary: no bladder fullness, No matthews in urethra Skin: warm, normal color Musculoskeletal: full muscle strength Neurologic: AAOx3 ICD10 Worksheet Patient Problems: Problems Problem Status Onset Pulmonary edema Acute Acute renal insufficiency Acute Opiate or related narcotic overdose Acute
--- NOTE | 2016-12-17 14:29 | SOAPPROG ---
SOAP Progress Note Assessment/Plan: Assessment: 1. arf: DULCE +/- ischemic atn. Excellent uo, creat stable near typical b/l. No further hd, can d/c cath. Home anytime, agree observing overnight probably safest. 2. 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 Bp improved, non-oliguric, off hd as above. Cont coreg, would not resume aldactone due to hyperK on admit. Should f/ u with Dr. Lomax in office, she believes she is due for 6 mos f/u anyway. 3. HyperK: resolved s/p hd, would leave off aldactone as above. Plan: 12/16/16 16:25 12/17/16 14:26 Subjective: No c/o, eager to go home. Objective: Vital Signs Temp Pulse Resp BP Pulse Ox 36.8 C 64 20 111/87 H 96 12/17/16 08:00 12/17/16 13:59 12/17/16 13:59 12/17/16 13:59 12/17/16 13:59 Laboratory Results 12/17/16 04:35 12/17/16 04:35 12/16/16 12/17/16 12/18/16 05:59 05:59 05:59 Intake Total 1502 1800 Output Total 2645 1200 Balance 1502 -845 -1200 PT 14.1 SEC (12.0-15.0) 12/11/16 03:40 INR 1.10 (0.83-1.16) 12/11/16 03:40 Physical Exam - Physical Exam General Appearance: no apparent distress Respiratory: decreased breath sounds, rhonchi Cardiac/Chest: regular rate, rhythm Extremities: pedal edema ICD10 Worksheet Patient Problems: Problems Problem Status Onset Pulmonary edema Acute Acute renal insufficiency Acute Opiate or related narcotic overdose Acute
[2016-12-17] MEDS: GABAPENTIN 100 MG CAP PO SCH (20:40)
[2016-12-17] MEDS: traZODone 50 MG TAB PO SCH (20:40)
[2016-12-17] MEDS: ESCITALOPRAM OXALATE 10 MG TAB PO SCH (20:40)
[2016-12-17] MEDS: GABAPENTIN 300 MG CAP PO SCH (20:40)
[2016-12-17 23:33] VITALS: TEMP 98.4
[2016-12-18] MEDS: HYDROCODONE/APAP 5/325 TAB PO PRN ×2 (01:52→08:33)
[2016-12-18] MEDS: HEPARIN 5,000 UNIT/0.5 ML SYR SC SCH (06:17)
[2016-12-18 06:31] LABS: ALBUMIN 3.6 g/dL (3.5-5.0); ANION GAP 7 mEq/L (8-16); CALCIUM 9.4 mg/dL (8.5-10.4); CARBON DIOXIDE 30 mEq/l (22-31); CHLORIDE 103 mEq/L (97-110); CREATININE 2.6 mg/dL (0.6-1.0); GLOMERULAR FILTRATION RATE 18; GLUCOSE 82 mg/dL (70-100); SODIUM 140 mEq/L (134-144)
[2016-12-18] MEDS: NICOTINE 7 MG/24 HR PATCH TD SCH (08:33)
[2016-12-18 08:34] VITALS: BP 147/98
[2016-12-18] MEDS: CARVEDILOL 3.125 MG TAB PO SCH (08:34)
--- NOTE | 2016-12-18 10:51 | HOSPPROG ---
Hospitalist Progress Note Assessment/Plan: 66 yo f solitary kidney, recurrent YENNY, hypertensive urgency Hypertensive urgency * off nicardipine gtt w sbp in 150's * one low noted; follow * alert * good uop * follow- this suggests improved renal perfusion * recurrent severe renal artery stenosis * was able to be angioplastied after 2nd attempt * eventually will need bypass acute on chronic kidney disease * most likely due to contrast nephropathy in setting of limited perfusion * improving and now off HD * dialysis catheter placed; HD on 12/14 and 12/15 making urine which is encouraging edema/ diastolic heart failure * holding diuretics atherosclerosis * start statin and asa on dc * has been intolerant of statins in the past dispo: inpt home today > 30 minutes on dc proph: sc heparin Subjective: bp well controlled. cr stable. ready for dc Objective: Vital Signs Temp Pulse Resp BP Pulse Ox 36.9 C 59 L 22 H 147/98 H 99 12/18/16 08:00 12/18/16 08:34 12/18/16 08:00 12/18/16 08:34 12/18/16 08:00 Laboratory Results 12/17/16 04:35 12/18/16 06:05 12/17/16 12/18/16 12/19/16 05:59 05:59 05:59 Intake Total 1800 700 Output Total 2645 1200 Balance -845 -500 PT 14.1 SEC (12.0-15.0) 12/11/16 03:40 INR 1.10 (0.83-1.16) 12/11/16 03:40 - Physical Exam Constitutional: no apparent distress, appears nourished Eyes: PERRL, anicteric sclera Ears, Nose, Mouth, Throat: moist mucous membranes, hearing normal Cardiovascular: regular rate and rhythym, no murmur, rub, or gallop Respiratory: no respiratory distress, no rales or rhonchi Gastrointestinal: normoactive bowel sounds, soft, non-tender abdomen Genitourinary: No matthews in urethra Skin: warm, normal color Musculoskeletal: full muscle strength, no muscle tenderness Neurologic: AAOx3, sensation intact bilaterally Psychiatric: interacting appropriately ICD10 Worksheet Patient Problems: Problems Problem Status Onset Pulmonary edema Acute Acute renal insufficiency Acute Opiate or related narcotic overdose Acute
[2016-12-18] MEDS: BUDESONIDE/FORMOTEROL 160/4.5 60 PUFFS/MDI IH SCH (11:11)
[2016-12-18 11:32] VITALS: PULSE 74; RESP 20; O2SAT 90
--- NOTE | 2016-12-18 21:25 | GDS ---
[f rep st] DISCHARGE SUMMARY DISCHARGE DIAGNOSES: 1. Acute kidney injury secondary to ischemia. 2. Recurrent renal artery stenosis with history of stent to the right kidney. 3. Chronic renal failure with baseline creatinine about 2.1. 4. Hypertensive crisis. 5. Volume overload. PROCEDURES DURING THIS ADMISSION: Renal artery stent. It required 2 procedures to open it up and u ltimately renal artery angioplasty was performed. CONSULTATIONS: Pulmonary Critical Care, Nephrology. HOSPITAL COURSE: Please see admission history and physical by Dr. Demi Gill. The patient pres ented with weight gain. She was markedly hypertensive in the 200s over 100s when she arrived. Following the patient did require a couple of sessions of dialysis but following the opening of the stent, the patient diuresed, made good urine. She was on nicardipine drip for a number of days and ultimately this was discontinued. Her sole antihypertensive agent is carvedilol 3.25. She is disch arged home today on just that. Spironolactone was discontinued. She was hyperkalemic on presentati on. She has outpatient followup with Dr. Sergey Anna. She was counseled heavily to discontinue sm oking at this point, which she agrees. Additionally, she was prescribed an aspirin. /[id number]/MODL
== END 2016-12-18 11:25 | disposition home or self-care (01) | DRG 674 ==
LOC: F2W 20:45 → OBSVTOIN 20:51 → F2N 21:42
PROVIDERS: ADMIT Internal Medicine; ATTEND Internal Medicine
PROC: 04793ZZ Dilation of Right Renal Artery, Percutaneous Approach (ICD-10-PCS; principal; 2016-12-14)
PROC: 0T9330Z Drainage of Right Kidney Pelvis with Drainage Device, Percutaneous Approach (ICD-10-PCS; principal; 2016-12-14)
PROC: 5A1D60Z (ICD-10-PCS; 2016-12-14)
DX: I70.1 Atherosclerosis of renal artery (principal); N17.9 Acute kidney failure, unspecified; I16.9 Hypertensive crisis, unspecified; I13.0 Hypertensive heart and chronic kidney disease with heart failure and stage 1 through stage 4 chronic kidney disease, or unspecified chronic kidney disease; N18.4 Chronic kidney disease, stage 4 (severe); I50.30 Unspecified diastolic (congestive) heart failure; E87.5 Hyperkalemia; E87.70 Fluid overload, unspecified; J44.9 Chronic obstructive pulmonary disease, unspecified; F17.200 Nicotine dependence, unspecified, uncomplicated; E66.9 Obesity, unspecified; Z68.38 Body mass index [BMI] 38.0-38.9, adult; Z90.5 Acquired absence of kidney; Z85.528 Personal history of other malignant neoplasm of kidney
CPT/HCPCS: 86704-90; 96374; 97161-GP; 97166-GO; C1725; C1750; C1760; C1769; C1892; C1894; G8978-GP-CI; G8979-GP-CI; G8980-GP-CI; G8987-GO-CI; G8988-GO-CH; G8989-GO-CH; J1200; J1644; J2250; J2310; J3010; Q9967

== ENCOUNTER → 2017-01-20 | Outpatient (CLI) | payer OTHER, MEDICAID | LOC: FIMAGING 14:57 | PROVIDERS: ATTEND Family Medicine | DX: M79.9 Soft tissue disorder, unspecified (principal) ==

== ENCOUNTER 2017-01-27 10:35 | Outpatient (CLI) | payer OTHER, MEDICAID ==
[2017-01-27] MEDS ORDERED: NITROGLYCERIN/D5W 50 MG/250 ML BOTTLE IV ONE (13:34)
[2017-01-27] MEDS ORDERED: HEPARIN 10,000 UNIT/10 ML MDV ONE (13:34)
[2017-01-27] MEDS ORDERED: VERAPAMIL 5 MG/2 ML VIAL ONE ×2 (13:34→14:39)
[2017-01-27] MEDS ORDERED: methylPREDNISolone SOD SUCC 125 MG/2 ML VIAL ONE (13:44)
[2017-01-27] MEDS ORDERED: fentaNYL 100 MCG/2 ML INJ ONE (13:45)
[2017-01-27] MEDS ORDERED: MIDAZOLAM 2 MG/2 ML VIAL ONE (13:46)
[2017-01-27] MEDS ORDERED: IOPAMIDOL (ISOVUE-300) 100 ML BTL ONE (13:50)
[2017-01-27] MEDS ORDERED: NS 1,000 ML IV SCH (14:15)
[2017-01-27] MEDS ORDERED: hydrALAZINE 20 MG/ML VIAL ONE (14:50)
[2017-01-27] MEDS ORDERED: OXYCODONE/APAP 5/325 TAB PO PRN (16:08)
[2017-01-27] MEDS ORDERED: ONDANSETRON 4 MG/2 ML VIAL IVP PRN (16:08)
[2017-01-27] MEDS ORDERED: ONDANSETRON DISINTEGRATING 4 MG TAB PO PRN (16:09)
== END 2017-01-27 18:05 | disposition home or self-care (01) ==
LOC: FIMAGING 10:35 → F1N 14:24 → UNDOADMOB 14:24 → FIMAGING 18:05
PROVIDERS: ATTEND Internal Medicine Nephrology
PROC: B416YZZ Fluoroscopy of Right Renal Artery using Other Contrast (ICD-10-PCS; principal; 2017-01-27)
DX: R79.89 Other specified abnormal findings of blood chemistry (principal); N17.9 Acute kidney failure, unspecified; F17.200 Nicotine dependence, unspecified, uncomplicated; Z96.0 Presence of urogenital implants
CPT/HCPCS: 36251; 76770; 99152; C1769; J0360; J1200; J1644; J2250; J3010; Q9967

== ENCOUNTER → 2017-01-30 | Outpatient (CLI) | payer OTHER, MEDICAID | LOC: GIMAGING 12:36 | PROVIDERS: ATTEND Family Medicine | DX: R06.02 Shortness of breath (principal); R91.8 Other nonspecific abnormal finding of lung field | CPT/HCPCS: 71020-PO ==

== ENCOUNTER 2017-02-21 13:55 | Day surgery (SDC) | payer OTHER, MEDICAID ==
--- NOTE | 2017-02-21 11:14 | PDHPUP ---
History & Physical Update H&P update statement: This history and physical update is based on an assessment of the patient which was completed after admission or registration (within 24 hours), but prior to the surgery/procedure. H&P update: H&P reviewed & patient examined, no change in patient's condition since H&P completed
--- NOTE | 2017-02-21 11:37 | GHP ---
[f rep st] PREOP HISTORY AND PHYSICAL DATE OF ADMISSION: 02/21/2017 HISTORY OF PRESENT ILLNESS: The patient is a 66-year-old female with a history of renal cell carcin sharon, nephrectomy, and renal arterial stenting, who has chronic renal failure and presents for a left upper extremity arteriovenous fistula creation. Ultrasound vein mapping in the office shows adequa te veins for fistula creation. She is right-hand dominant. Risks and options have been discussed i ncluding, but not limited to, bleeding, infection, nerve injury, damage surrounding structures, fail ure to mature, clotting, need for alternate access, steal syndrome, need for revision and/or further surgery, and other problems, and she requests to proceed. PAST MEDICAL HISTORY: Includes renal cell adenocarcinoma, atherosclerosis, arthritis, carpal tunnel syndrome, chronic pain, COPD, depression, history of drug abuse, hyperparathyroid, lumbar radiculop athy, history of pneumonia, hypertension, psoriasis. PAST SURGICAL HISTORY: Nephrectomy. MEDICATIONS: Tylenol, aspirin, carvedilol, coenzyme Q10, citalopram, Flonase, gabapentin, Gomer, La six, pravastatin, ranitidine, Symbicort, trazodone, Ventolin HFA, vitamin 3. ALLERGIES: Cephalosporins, penicillins, statin intolerance, iodine, and morphine. SOCIAL HISTORY: Patient is a current everyday smoker. FAMILY HISTORY: Noncontributory. REVIEW OF SYSTEMS: Includes vision changes, heart murmur, high blood pressure, leg pain, unhealed s ores, difficulty swallowing, constipation, kidney failure, general weakness, arthritis, joint pain, nerve problems, and dizziness. A 10-point review of systems is conducted. PHYSICAL EXAMINATION: GENERAL: Reveals a 66-year-old female, somewhat chronically ill-appearing, a lert and oriented x3, in no acute distress. HEENT: Normocephalic, atraumatic. CHEST: Clear to au scultation bilaterally. CARDIAC: Regular rate and rhythm. ABDOMEN: Soft, nontender. EXTREMITIES : Warm, dry, with palpable radial pulses. PSYCH: Normal mood and affect. SKIN: Warm and dry. IMPRESSION: This is a 66-year-old female with chronic renal failure in need of dialysis access. PLANS: Proceed with a left upper extremity AV fistula creation. Again, risks and options have been discussed, and she requests to proceed. /[id number]/MODL
[2017-02-21] MEDS ORDERED: CLINDAMYCIN 900 MG/DEXTROSE 50 ML IV ONE (14:31)
[2017-02-21] MEDS ORDERED: LR 1,000 ML IV ONE (15:05)
[2017-02-21] MEDS ORDERED: PAPAVERINE HCL 60 MG/2 ML SDV ONE (15:10)
[2017-02-21] MEDS ORDERED: THROMBIN (BOVINE) 5,000 UNIT VIAL TP ONE (15:10)
[2017-02-21] MEDS ORDERED: BUPIVACAINE 0.5% 30 ML SDV ONE (15:10)
[2017-02-21] MEDS ORDERED: THROMBIN (BOVINE) 20,000 UNIT SPRAY TP ONE (15:10)
[2017-02-21] MEDS ORDERED: PROTAMINE SULFATE 50 MG/5 ML VIAL IVP ONE (15:10)
[2017-02-21 15:14] LABS: % IMMATURE GRANULYOCYTES 0.4 % (0.0-1.1); ABSOLUTE IMMATURE GRANULOCYTES 0.04 10^3/uL (0.00-0.10); ADD DIFF? NO; ADD MORPH? NO; ADD SCAN? NO; ATYPICAL LYMPHOCYTE FLAG 0 (0-99); FRAGMENT RBC FLAG 0 (0-99); HEMATOCRIT 36.3 % (38.0-47.0); HEMOGLOBIN 11.9 g/dL (12.6-16.3); LEFT SHIFT FLG 0 (0-99); LIPEMIA HEMOLYSIS FLAG 80 (0-99); MEAN CELL HEMOGLOBIN CONCENTR. 32.8 g/dL (32.4-36.7); MEAN CELL VOLUME 94.5 fL (81.5-99.8); MEAN PLATELET VOLUME 11.8 fL (8.7-11.7); PLATELET CLUMPS FLAG 10 (0-99); PLATELET COUNT 198 10^3/uL (150-400); RED BLOOD CELL COUNT 3.84 10^6/uL (4.18-5.33); RED CELL DISTRIBUTION WIDTH 13.7 % (11.5-15.2)
[2017-02-21 15:25] LABS: INR 1.05 (0.83-1.16); PROTIME(PATIENT) 13.6 SEC (12.0-15.0)
[2017-02-21 15:26] LABS: APTT 29.4 SEC (23.0-38.0)
[2017-02-21 15:31] LABS: ANION GAP 16 mEq/L (8-16); CALCIUM 10.1 mg/dL (8.5-10.4); CARBON DIOXIDE 23 mEq/l (22-31); CHLORIDE 96 mEq/L (97-110); CREATININE 6.2 mg/dL (0.6-1.0); GLOMERULAR FILTRATION RATE 7; GLUCOSE 84 mg/dL (70-100); POTASSIUM 4.1 mEq/L (3.5-5.2); SODIUM 135 mEq/L (134-144)
--- NOTE | 2017-02-21 16:03 | PDANEPAE ---
ANE History of Present Illness l AVF, not currently dialyzed, last 12/12 ANE Past Medical History - Cardiovascular History Hx Hypertension: Yes Hx Arrhythmias: No Hx Chest Pain: No Hx Coronary Artery / Peripheral Vascular Disease: No Hx CHF / Valvular Disease: No Hx Palpitations: Yes - Pulmonary History Hx COPD: No Hx Asthma/Reactive Airway Disease: No Hx Recent Upper Respiratory Infection: No Hx Oxygen in Use at Home: No - Neurologic History Hx Cerebrovascular Accident: No Hx Seizures: No Hx Dementia: No - Endocrine History Hx Diabetes: No - Renal History Hx Renal Disorders: Yes - Liver History Hx Hepatic Disorders: No - Neurological & Psychiatric Hx Hx Neurological and Psychiatric Disorders: Yes - Cancer History Hx Cancer: Yes - Congenital Disorder History Hx Congenital Disorders: Yes - GI History Hx Gastrointestinal Disorders: No - Chronic Pain History Chronic Pain: Yes (arthritis) ANE Review of Systems - Exercise capacity Exercise capacity: <4 METS METS (RN): 3 METS - Systems Constitutional: Reports: malaise Cardiac: Reports: no symptoms Respiratory: Reports: no symptoms Gastrointestinal: Reports: no symptoms Muscolosketal: Reports: back pain ANE Patient History - Allergies Allergies/Adverse Reactions: Cephalosporins Allergy (Intermediate, Verified 01/27/17 14:22) Hives Penicillins Allergy (Intermediate, Verified 01/27/17 14:22) Hives morphine Allergy (Mild, Verified 01/27/17 14:22) stomach issue tetanus toxoid, adsorbed Allergy (Mild, Verified 01/27/17 14:22) localized reaction contrast allergy Allergy (Intermediate, Uncoded 01/27/17 14:22) Hives - Home Medications Home Medications: Carvedilol [Coreg (*)] 3.125 mg PO BIDMEAL 09/24/15 [Last Taken 01/26/17 3.125mg ] traZODone [traZODONE 50MG (*)] 50 mg PO HS 09/24/15 [Last Taken 01/26/17 50mg] Albuterol 17 gm IH Q4 PRN 12/10/16 [Last Taken 12/10/16 16:00] Budesonide/Formoterol 160/4.5 [Symbicort 160-4.5 Mcg Inh (*)] 1 puffs IH BID [Last Taken 01/27/17] Escitalopram Oxalate [Lexapro] 20 mg PO HS 12/10/16 [Last Taken 01/26/17 20mg] Gabapentin [Neurontin 300 MG (*)] 600 mg PO HS 12/10/16 [Last Taken 01/26/17 300mg] Ranitidine HCl 150 mg PO HS 01/24/17 [Last Taken 01/26/17 150mg] [place] 10/325 (*) 02/20/17 [Last Taken Unknown] Sodium Bicarbonate 02/20/17 [Last Taken Unknown] - NPO status NPO Since - Liquids (Date): 02/21/17 NPO Since - Liquids (Time): 07:00 NPO Since - Solids (Date): 02/21/17 NPO Since - Solids (Time): 03:30 - Smoking Hx Smoking Status: Heavy smoker - Alcohol Use Alcohol Use: None - Family Anes Hx Family Hx Anesthesia Complications: none ANE Labs/Vital Signs - Labs Result Diagrams: 02/21/17 15:00 02/21/17 15:00 - Vital Signs Blood Pressure: 148/60 Heart Rate: 71 Respiratory Rate: 18 O2 Sat (%): 91 Height: 157.48 cm Weight: 83.915 kg ANE Physical Exam - Airway Neck exam: decreased ROM Mallampati Score: Class 3 Mouth exam: poor dentition - Pulmonary Pulmonary: inspiratory crackles - Cardiovascular Cardiovascular: regular rate and rhythym - ASA Status ASA Status: III ANE Anesthesia Plan Anesthesia Plan: GA w LMA
[2017-02-21] MEDS ORDERED: LIDOCAINE 2% 5 ML SDV ONE (16:16)
[2017-02-21] MEDS ORDERED: PROPOFOL 200 MG/20 ML VIAL ONE (16:17)
[2017-02-21] MEDS ORDERED: fentaNYL 100 MCG/2 ML INJ ONE (16:17)
[2017-02-21] MEDS ORDERED: HEPARIN 10,000 UNIT/10 ML MDV ONE (16:34)
[2017-02-21] MEDS ORDERED: fentaNYL 100 MCG/2 ML INJ IVP PRN (17:07)
[2017-02-21] MEDS ORDERED: ONDANSETRON 4 MG/2 ML VIAL IVP PRN (17:07)
[2017-02-21] MEDS ORDERED: ALBUTEROL 3 ML DEYVIAL IH PRN (17:07)
[2017-02-21] MEDS ORDERED: LABETALOL HCL 50 MG/10 ML SYR IVP PRN (17:07)
[2017-02-21] MEDS ORDERED: NALOXONE HCL 0.4 MG/ML INJ IVP PRN (17:07)
[2017-02-21] MEDS ORDERED: OXYCODONE/APAP 5/325 TAB PO PRN (17:07)
[2017-02-21] MEDS ORDERED: ONDANSETRON 4 MG/2 ML VIAL ONE (17:34)
--- NOTE | 2017-02-21 17:49 | POSTOPPROG ---
Post Op Note Date of Operation: 02/21/17 Surgeon: Cedric Lyman Fleet Maintenance Foreman: Giselle Kirk Anesthesiologist: Gael Clemons Anesthesia: GET(General Endotracheal) Pre-op Diagnosis: CRF Post-op Diagnosis: same Procedure: LUE radiocephalic AVF Findings: light thrill Inf/Abcess present in the surg proc area at time of surgery?: No EBL: Minimal Complications: none Specimen(s): none
--- NOTE | 2017-02-21 17:59 | POSTANESTH ---
Post Anesthetic Evaluation Cardiovascular Status: Normal, Stable Respiratory Status: Normal, Stable Level of Consciousness/Mental Status: Mildly Sleepy, Arousable Pain Control: Adequate, Prn Tx Ordered Nausea/Vomiting Control: Adequate, Prn Tx Ordered Complications Possibly Related to Anesthesia: None Noted
[2017-02-21 18:35] VITALS: TEMP 99.3
[2017-02-21 18:44] VITALS: PULSE 73; RESP 14; O2SAT 92
[2017-02-21 19:10] VITALS: BP 145/66
== END 2017-02-21 18:52 | disposition home or self-care (01) ==
LOC: FSGY 13:55
PROVIDERS: ATTEND Surgery
PROC: 03180ZD Bypass Left Brachial Artery to Upper Arm Vein, Open Approach (ICD-10-PCS; principal; 2017-02-21 16:00)
DX: I12.0 Hypertensive chronic kidney disease with stage 5 chronic kidney disease or end stage renal disease (principal); N18.6 End stage renal disease; J44.9 Chronic obstructive pulmonary disease, unspecified; Z85.528 Personal history of other malignant neoplasm of kidney; Z90.5 Acquired absence of kidney
CPT/HCPCS: J1644; J2405; J2440; J2704; J2720; J3010

== ENCOUNTER 2017-03-14 11:30 | Inpatient (IN) | payer OTHER, MEDICAID ==
--- NOTE | 2017-03-14 09:04 | PDHPUP ---
History & Physical Update H&P update statement: This history and physical update is based on an assessment of the patient which was completed after admission or registration (within 24 hours), but prior to the surgery/procedure. H&P changes: Patient needs dialysis sooner than expected and is now here for tunneled neck catheter. Please see H&P note from 02/21/2017 and also the more recent scanned in progress note.
[2017-03-14] MEDS ORDERED: CLINDAMYCIN 900 MG/DEXTROSE/50 ML BAG IV ONE (11:46)
[2017-03-14] MEDS ORDERED: LIDOCAINE 1% 2 ML INJ ONE (11:46)
[2017-03-14] MEDS ORDERED: LIDOCAINE 1% 300 MG/30 ML SDV ONE (11:56)
[2017-03-14] MEDS ORDERED: HEPARIN 50,000 UNIT/10 ML VIAL ONE (11:56)
[2017-03-14] MEDS ORDERED: BUPIVACAINE 0.5% 30 ML SDV ONE (11:56)
[2017-03-14] MEDS ORDERED: SODIUM BICARBONATE 10 MEQ/10 ML SYR IVP ONE (11:56)
[2017-03-14 12:14] LABS: % IMMATURE GRANULYOCYTES 0.5 % (0.0-1.1); ABSOLUTE IMMATURE GRANULOCYTES 0.05 10^3/uL (0.00-0.10); ADD DIFF? NO; ADD MORPH? NO; ADD SCAN? NO; ATYPICAL LYMPHOCYTE FLAG 0 (0-99); FRAGMENT RBC FLAG 0 (0-99); HEMATOCRIT 33.7 % (38.0-47.0); LEFT SHIFT FLG 0 (0-99); LIPEMIA HEMOLYSIS FLAG 80 (0-99); MEAN CELL HEMOGLOBIN 31.3 pg (27.9-34.1); MEAN CELL HEMOGLOBIN CONCENTR. 32.6 g/dL (32.4-36.7); MEAN CELL VOLUME 95.7 fL (81.5-99.8); MEAN PLATELET VOLUME 11.4 fL (8.7-11.7); PLATELET CLUMPS FLAG 20 (0-99); PLATELET COUNT 224 10^3/uL (150-400); RED BLOOD CELL COUNT 3.52 10^6/uL (4.18-5.33); RED CELL DISTRIBUTION WIDTH 14.5 % (11.5-15.2)
[2017-03-14] MEDS ORDERED: NS 1,000 ML IV ONE ×2 (12:31→13:30)
[2017-03-14] MEDS ORDERED: CLINDAMYCIN 900 MG/DEXTROSE 50 ML IV ONE (12:31)
[2017-03-14 12:52] LABS: ALANINE AMINOTRANSFERASE 27 IU/L (9-52); ALBUMIN 4.2 g/dL (3.5-5.0); ALKALINE PHOSPHATASE 89 IU/L (38-126); ANION GAP 17 mEq/L (8-16); ASPARTATE AMINOTRANSFERASE 17 IU/L (14-46); BILIRUBIN,TOTAL 0.7 mg/dL (0.1-1.4); CALCIUM 10.3 mg/dL (8.5-10.4); CARBON DIOXIDE 17 mEq/l (22-31); CHLORIDE 108 mEq/L (97-110); CREATININE 6.2 mg/dL (0.6-1.0); GLOMERULAR FILTRATION RATE 7; GLUCOSE 86 mg/dL (70-100); POTASSIUM 4.5 mEq/L (3.5-5.2); SODIUM 142 mEq/L (134-144)
--- NOTE | 2017-03-14 13:16 | PDANEPAE ---
ANE Past Medical History - Cardiovascular History Hx Hypertension: Yes Hx Arrhythmias: No Hx Chest Pain: No Hx Coronary Artery / Peripheral Vascular Disease: Yes Hx CHF / Valvular Disease: No Hx Palpitations: Yes Cardiovascular History Comment: 156/70's at [facility]. 136/70's at dr miller. - Pulmonary History Hx COPD: Yes Hx Asthma/Reactive Airway Disease: No Hx Recent Upper Respiratory Infection: No Hx Oxygen in Use at Home: Yes Hx Sleep Apnea: No Pulmonary History Comment: smoker x 50yrs. No pulmonary diagnois. - Neurologic History Hx Cerebrovascular Accident: No Hx Seizures: No Hx Dementia: No - Endocrine History Hx Diabetes: No Obesity: yes - Renal History Hx Renal Disorders: Yes Renal History Comment: left nephrectomy stage 2 or 3 cancer, stent placed in right renal artery 5 years ago with right renal bleed. - Liver History Hx Hepatic Disorders: No - Neurological & Psychiatric Hx Hx Neurological and Psychiatric Disorders: Yes Neurological / Psychiatric History Comment: low back pain. Depression. Trazadone for sleep. - Cancer History Hx Cancer: Yes Cancer History Comment: left kidney cancer - Congenital Disorder History Hx Congenital Disorders: Yes Congenital History Comment: congenital heart murmur - GI History Hx Gastrointestinal Disorders: No Gastrointestinal History Comment: GERD at night. - Other Health History Other Health History: osteoarthritis, psoriatic arthritis, missing upper teeth, muscle weakness- quads, gluteals. - Chronic Pain History Chronic Pain: Yes (arthritis) - Surgical History Prior Surgeries: left nephrectomy Jun 2005. Hysterectomy and Cholecystectomy, ectopic , carpal tunnel repair, appendectomy, tonsillectomy ANE Patient History - Allergies Allergies/Adverse Reactions: Cephalosporins Allergy (Intermediate, Verified 01/27/17 14:22) Hives Penicillins Allergy (Intermediate, Verified 01/27/17 14:22) Hives morphine Allergy (Mild, Verified 01/27/17 14:22) stomach issue tetanus toxoid, adsorbed Allergy (Mild, Verified 01/27/17 14:22) localized reaction contrast allergy Allergy (Intermediate, Uncoded 01/27/17 14:22) Hives - Home Medications Home Medications: Carvedilol [Coreg (*)] 3.125 mg PO BIDMEAL 09/24/15 [Last Taken 03/14/17 06:00] traZODone [traZODONE 50MG (*)] 50 mg PO HS 09/24/15 [Last Taken 03/13/17 20:00] Albuterol 17 gm IH Q4 PRN 12/10/16 [Last Taken 1 Month Ago] Budesonide/Formoterol 160/4.5 [Symbicort 160-4.5 Mcg Inh (*)] 1 puffs IH BID [Last Taken 03/14/17 06:00] Escitalopram Oxalate [Lexapro] 20 mg PO HS 12/10/16 [Last Taken 03/13/17 20:00] Gabapentin [Neurontin 300 MG (*)] 600 mg PO HS 12/10/16 [Last Taken 03/13/17 20: 00] Ranitidine HCl 150 mg PO HS 01/24/17 [Last Taken 03/13/17 20:00] Sodium Bicarbonate 02/20/17 [Last Taken 03/13/17 20:00] - NPO status NPO Since - Liquids (Date): 03/14/17 NPO Since - Liquids (Time): 06:00 NPO Since - Solids (Date): 03/13/17 NPO Since - Solids (Time): 18:00 - Smoking Hx Smoking Status: Heavy smoker - Family Anes Hx Family Hx Anesthesia Complications: none ANE Labs/Vital Signs - Labs Result Diagrams: 03/14/17 12:03 03/14/17 12:03 - Vital Signs Blood Pressure: 175/79 Heart Rate: 74 Respiratory Rate: 16 O2 Sat (%): 94 ANE Physical Exam - Airway Mallampati Score: Class 3 ANE Anesthesia Plan Anesthesia Plan: GA w LMA
[2017-03-14] MEDS ORDERED: fentaNYL 100 MCG/2 ML INJ ONE (13:24)
[2017-03-14] MEDS ORDERED: MIDAZOLAM 2 MG/2 ML VIAL ONE (13:24)
[2017-03-14] MEDS ORDERED: METOCLOPRAMIDE 10 MG/2 ML VIAL ONE (13:25)
[2017-03-14] MEDS ORDERED: PHENYLEPHRINE HCL 100 MCG/ML SYR ONE (13:25)
[2017-03-14] MEDS ORDERED: PROPOFOL 200 MG/20 ML VIAL ONE (13:25)
[2017-03-14] MEDS ORDERED: ONDANSETRON 4 MG/2 ML VIAL ONE (13:25)
[2017-03-14] MEDS ORDERED: THROMBIN (BOVINE) 5,000 UNIT VIAL TP ONE (14:12)
[2017-03-14] MEDS ORDERED: ONDANSETRON 4 MG/2 ML VIAL IVP PRN (14:42)
[2017-03-14] MEDS ORDERED: HYDROmorphONE/DILAUDID 1 MG/ML SYR IVP PRN (14:42)
[2017-03-14] MEDS ORDERED: fentaNYL 100 MCG/2 ML INJ IVP PRN (15:04)
[2017-03-14] MEDS ORDERED: PROMETHAZINE HCL 25 MG/ML INJ IVP PRN (15:04)
[2017-03-14] MEDS ORDERED: NALOXONE HCL 0.4 MG/ML INJ IVP PRN (15:04)
--- NOTE | 2017-03-14 15:05 | POSTANESTH ---
Post Anesthetic Evaluation Cardiovascular Status: Similar to Pre-Op Cond Respiratory Status: Similar to Pre-op Cond. Level of Consciousness/Mental Status: Mildly Sleepy, Arousable Pain Control: Adequate, Prn Tx Ordered Nausea/Vomiting Control: Adequate, Prn Tx Ordered Complications Possibly Related to Anesthesia: None Noted
[2017-03-14] MEDS ORDERED: NS 100 ML IV PRN (21:21)
[2017-03-15 04:50] LABS: % IMMATURE GRANULYOCYTES 0.3 % (0.0-1.1); ABSOLUTE IMMATURE GRANULOCYTES 0.03 10^3/uL (0.00-0.10); ADD DIFF? NO; ADD MORPH? NO; ADD SCAN? NO; ATYPICAL LYMPHOCYTE FLAG 0 (0-99); FRAGMENT RBC FLAG 0 (0-99); HEMATOCRIT 30.9 % (38.0-47.0); HEMOGLOBIN 9.7 g/dL (12.6-16.3); LEFT SHIFT FLG 0 (0-99); LIPEMIA HEMOLYSIS FLAG 80 (0-99); MEAN CELL HEMOGLOBIN 31.1 pg (27.9-34.1); MEAN CELL HEMOGLOBIN CONCENTR. 31.4 g/dL (32.4-36.7); MEAN PLATELET VOLUME 11.9 fL (8.7-11.7); PLATELET CLUMPS FLAG 0 (0-99); PLATELET COUNT 189 10^3/uL (150-400); RED BLOOD CELL COUNT 3.12 10^6/uL (4.18-5.33); RED CELL DISTRIBUTION WIDTH 14.5 % (11.5-15.2)
[2017-03-15 05:11] LABS: ALBUMIN 3.5 g/dL (3.5-5.0); ANION GAP 17 mEq/L (8-16); CALCIUM 9.6 mg/dL (8.5-10.4); CARBON DIOXIDE 18 mEq/l (22-31); CHLORIDE 109 mEq/L (97-110); CREATININE 6.3 mg/dL (0.6-1.0); GLOMERULAR FILTRATION RATE 7; GLUCOSE 62 mg/dL (70-100); POTASSIUM 4.6 mEq/L (3.5-5.2); SODIUM 144 mEq/L (134-144)
[2017-03-15] MEDS: HYDROCODONE/APAP 5/325 TAB PO PRN ×5 (05:21→21:56)
[2017-03-15 05:49] LABS: HEPATITIS B SURFACE ANTIBODY NEGATIVE (NEGATIVE)
--- NOTE | 2017-03-15 06:53 | GCON ---
[f rep st] CONSULTATION DATE OF CONSULTATION: 03/14/2017 REFERRING PHYSICIAN: Cedric Lyman MD REASON FOR CONSULTATION: Management of medical issues. HISTORY OF PRESENT ILLNESS: The patient is a 66-year-old female with multiple medical problems, inc luding CKD, chronic pain, hyperlipidemia, pulmonary hypertension, who underwent tunneled dialysis ca theter placement today by Dr. Lyman. She had a creation of a left upper extremity radiocephalic AV fistula on 02/21/2017, and is doing well, per followup notes by Dr. Lyman. Upon my interview, patient denies any nausea, vomiting, diarrhea. No chest pain. No shortness of b reath. She is groggy secondary to sedation. REVIEW OF SYSTEMS: I completed a 10-point review of systems, but most is from prior notes, as the p atient is somnolent due to anesthesia. PAST MEDICAL HISTORY: 1. Recurrent renal artery stenosis, status post stent to right kidney. 2. CKD with creatinine of 2.1. 3. Diastolic heart failure. 4. Moderate aortic insufficiency. 5. Moderate tricuspid regurgitation. 6. Pulmonary hypertension with RVSP of 52 mmHg on an echo December 22. 7. Renal cell carcinoma, status post left nephrectomy. 8. Peripheral vascular disease. 9. Tobacco abuse. 10. Obesity. 11. Diabetes. 12. Chronic pain, on chronic narcotics. 13. Psoriatic arthritis. 14. Depression. 15. Melanoma. 16. Vitamin D deficiency. PAST SURGICAL HISTORY: Left nephrectomy, renal artery stent. SOCIAL HISTORY: Lives alone in [place]. Smokes tobacco daily. No alcohol or illicits. ALLERGIES: Cephalosporins, iodine, morphine, penicillin, statin. HOME MEDICATIONS: Tylenol 500 mg p.r.n., aspirin 81 daily, Coreg 3.125 twice daily, coenzyme Q10 da jayy, Celexa 20 mg daily, Flonase, gabapentin 600 mg three times daily, hydrocodone/acetaminophen 10/ 325 three times daily, Lasix 20 mg daily, pravastatin 10 mg daily, ranitidine 150 mg daily, Symbicor t, trazodone 50 mg at bedtime, albuterol inhaler, vitamin D3. PHYSICAL EXAMINATION: VITALS: Temperature is 36.5, blood pressure 127/57, heart rate 60s, respirat ions 16, and 90% on 3 L. GENERAL: Obese female, groggy from sedation after procedure. HEENT: PER RLA. EOMI. Oropharynx clear. CV: Regular rate and rhythm. Murmur present, +2 edema at ankles bi laterally. LUNGS: Clear to auscultation anteriorly. Abdomen is obese. Large abdominal hernia on the left. : No suprapubic tenderness. MUSCULOSKELETAL: Moving all 4 extremities. Fistula inci emily, left upper extremity, clean, dry, and intact. Good thrill. NEUROLOGIC: 2 through 12 intact. No focal deficits. PSYCH: Alert and oriented, but groggy. Not answering all my questions fully due to sedation. LABORATORY DATA: WBC 11, hemoglobin 11, hematocrit 33, platelets 224. Sodium 142, potassium 4.5, c hloride 106, carbon dioxide 17, anion gap 16, creatinine 6.2, baseline 4.8. LFTs within normal. ASSESSMENT AND PLAN: 1. Chronic kidney disease: Creatinine elevated at 6.2. Has a radiocephalic AV fistula that is mat uring, placed on 02/21. She underwent a tunnel line placement today by Dr. Lyman. We will contact Nephrology for consultation of port dialysis. Check a phosphorus. Potassium is normal. We will mo nitor on telemetry. 2. Mild leukocytosis: WBCs 11, afebrile. Likely secondary to stress inflammation with surgery. W e will repeat in the morning. 3. Recurrent renal artery stenosis: Status post stent to the right kidney. No ARBs or MAG inhibit ors. 4. Compensated diastolic heart failure: Continue Lasix and beta rolando. 5. Moderate aortic insufficiency: Stable. Continue Lasix. 6. Peripheral vascular disease: Continue aspirin. 7. Controlled diabetes: Continue glargine and sliding-scale insulin. 8. Chronic pain: Resume home medications. 9. Metabolic anion gap acidosis secondary to chronic kidney disease: HD per Renal. 10. Deep venous thrombosis prophylaxis: SCDs. DIET: Renal. DISPOSITION: Thank you for this consult. We will follow along. Please call if any questions. /[id number]/MODL
--- NOTE | 2017-03-15 08:58 | SOAPPROG ---
SOAP Progress Note Assessment/Plan: Assessment: WOUND OK/ COMFORTABLE Plan:? DIALYSIS TODAY 03/15/17 08:57 Objective: Vital Signs Temp Pulse Resp BP Pulse Ox 37.1 C 76 18 135/67 H 97 03/15/17 08:00 03/15/17 08:00 03/15/17 08:00 03/15/17 08:00 03/15/17 08:00 Laboratory Results 03/15/17 03:45 03/15/17 03:45 03/14/17 03/15/17 03/16/17 05:59 05:59 05:59 Intake Total 550 Output Total 630 Balance -80 ICD10 Worksheet Patient Problems: Problems Problem Status Onset Acute renal insufficiency Acute Opiate or related narcotic overdose Acute Pulmonary edema Acute
--- NOTE | 2017-03-15 09:01 | POSTOPPROG ---
Post Op Note Date of Operation: 03/14/17 Surgeon: Cedric Lyman Anesthesiologist: BAILEY Anesthesia: GET(General Endotracheal) Pre-op Diagnosis: CRF Post-op Diagnosis: SAME Indication: NEEDS DIALYSIS Procedure: RT IJ PALINDROME TUNNELLED CATH WITH US GUIDANCE AND FLOURO Findings: GOOD POSITION AND FLOW Inf/Abcess present in the surg proc area at time of surgery?: No Depth: Deep Incisional (Fascial) EBL: 50-100 Complications: 0
--- NOTE | 2017-03-15 10:00 | SOAPPROG ---
SOAP Progress Note Assessment/Plan: Assessment: Johanny is known to our service. She follows with Dr. Lomax. She is initiating dialysis. She already has an outpatient dialysis spot at the [facility] (Roxi, social media campaign manager, ). She has a catheter and fistula in place. She is seen at the start of dialysis, and is stable. Her catheter function is good. We will plan on dialyzing again tomorrow. We will need to look at her function and transportation. She lives independently near [place]. She has family nearby. Her BP is stable. 03/15/17 10:00 Subjective: Doing pretty well Objective: Vital Signs Temp Pulse Resp BP Pulse Ox 37.1 C 76 18 135/67 H 97 03/15/17 08:00 03/15/17 08:00 03/15/17 08:00 03/15/17 08:00 03/15/17 08:00 Laboratory Results 03/15/17 03:45 03/15/17 03:45 03/14/17 03/15/17 03/16/17 05:59 05:59 05:59 Intake Total 550 Output Total 630 Balance -80 Physical Exam - Physical Exam General Appearance: no apparent distress Neck: other (tunnel site ok. Extra sutures at exit site noted) Respiratory: lungs clear Cardiac/Chest: regular rate, rhythm Extremities: normal inspection Neuro/Psych: oriented x 3 ICD10 Worksheet Patient Problems: Problems Problem Status Onset Acute renal insufficiency Acute Opiate or related narcotic overdose Acute Pulmonary edema Acute
--- NOTE | 2017-03-15 10:24 | GCON ---
[f rep st] CONSULTATION DATE OF CONSULTATION: 03/14/2017 REASON FOR CONSULTATION: Opinion regarding end-stage kidney failure. HISTORY OF PRESENT ILLNESS: The patient is a very pleasant 66-year-old female who I have been follo wing for chronic kidney disease for several years. The patient had a baseline serum creatinine in t he low to mid 2's due to solitary functioning kidney, she had her left kidney removed with renal eli l carcinoma in the past, unfortunately she also developed renal artery stenosis in her right kidney requiring stenting with occasional in-stent restenosis with subsequent angioplasties. Over the cour se of the past 6 or so months, the patient has progressed to end-stage kidney failure. She had her AV fistula placed in her left forearm approximately 3-1/2 weeks ago, and did develop some mild eryth yuliana and dehiscence, she was treated with doxycycline 100 mg for a week. Over the course of the past several days, the patient has become progressively more uremic with some asterixis, nausea, anorexi a, and fatigue. The patient came to the hospital today and had a tunneled hemodialysis catheter nannette hero, we will initiate hemodialysis. The patient has an outpatient hemodialysis spot at the [facility] dialysis unit in [place] on a Monday, , and Monday shift. PAST MEDICAL HISTORY: Significant for: 1. End-stage kidney failure. 2. AV fistula placed in January of 2017. 3. AV fistula wound dehiscence treated with doxycycline. 4. Hypertension. 5. Renal artery stenosis. 6. Solitary right kidney. 7. Renal cell carcinoma. 8. Status post left nephrectomy. 9. Chronic back pain. 10. Depression. 11. Obesity. 12. Renal artery angioplasty and stent placement in her right kidney. 13. Gastroesophageal reflux disease. HOME MEDICATIONS: Include: 1. Coreg 3.125 mg twice daily. 2. Trazodone 50 mg at bedtime. 3. Albuterol inhaler. 4. Lexapro 20 mg a day. 5. Zantac 150 mg at bedtime. 6. Sodium bicarbonate. 7. Neurontin 600 mg at bedtime. ALLERGIES: Penicillin, sulfa, tetanus, and IV contrast. SOCIAL HISTORY: The patient lives independently and she continues to smoke cigarettes. FAMILY HISTORY: Negative for renal failure, her son is present at the interview. REVIEW OF SYSTEMS: A complete 12-point review of systems was attempted with the patient. She is pr khari sleepy, but she denies pain. She has had some nausea, no vomiting. Her appetite has been off. She has been quite sleepy and lethargic. PHYSICAL EXAMINATION: VITAL SIGNS: Blood pressure 127/45, pulse 58, respirations 12, temperature 3 6.6 degrees. GENERAL: She is arousable and talkative, but drifts back to sleep, she says she is pr khari sleepy. HEENT: Pupils are reactive to light. Extraocular movements are intact. Mucous membr anes are moist. NECK: Positive for JVD, although she is lying flat. No thyromegaly. HEART: Regu lar. No rub. No S3. LUNGS: No rhonchi. She does have end-expiratory wheezing. ABDOMEN: Bowel sounds are positive. Soft, nontender, nondistended. EXTREMITIES: Trace edema. NEUROLOGIC: Posit car asterixis. SKIN: No unusual rashes or lesions. LYMPH: No palpable lymphadenopathy or lymphed yuliana. MUSCULOSKELETAL: She has a developing left forearm Nat AV fistula. CHEST: She has a rece ntly placed right internal jugular vein tunneled hemodialysis catheter. LABORATORY: WBC 11.1, hemoglobin 11, hematocrit 34, platelet count 224,000. Serum sodium 142, pota ssium 4.5, chloride 108, CO2 17, BUN 61, creatinine 6.2, glucose 86, calcium 10.3, phosphorus 5.8. AST 17, ALT 27, albumin 4.2. IMPRESSION: 1. End-stage kidney failure due to decreased nephron mass, hypertension, and vascular disease. 2. Hypertension, under quite decent control for the patient. 3. Renal artery stenosis, status post angioplasty and stenting with multiple re-angioplasties for i n-stent restenosis. 4. Uremia. RECOMMENDATIONS: 1. We will plan on doing hemodialysis, 1st run tomorrow. 2. She has an outpatient hemodialysis spot available at the [facility] dialysis unit in [place] on a Monday, , Monday schedule. 3. All questions were answered to the patient's and her son's satisfaction. Thank you for allowing me to participate in the care of your patient. If there are any questions, ilsa webb do not hesitate to contact me. I will be following along with you. /[id number]/MODL
[2017-03-15] MEDS ORDERED: HEPARIN 50,000 UNIT/10 ML VIAL ONE (13:50)
[2017-03-15] MEDS: CALCIUM ACETATE 667 MG CAP PO SCH ×2 (13:53→17:47)
[2017-03-15] MEDS: GABAPENTIN 300 MG CAP PO SCH ×2 (16:36→21:55)
--- NOTE | 2017-03-15 17:05 | HOSPPROG ---
Hospitalist Progress Note Assessment/Plan: * ESRD with acute uremia -s/p left nephrectomy, right renal artery stenosis -initiating dialysis -uremic symptoms dramatically improved -dialysis catheter until fistula matured * HTN -coreg * Renal artery stenosis - stent complicated by in-stent restenosis * Chronic pain - gabapentin Subjective: No complaints. Feels much better since dialysis started Objective: Vital Signs Temp Pulse Resp BP Pulse Ox 37.1 C 84 16 171/70 H 98 03/15/17 16:00 03/15/17 16:00 03/15/17 16:00 03/15/17 16:00 03/15/17 16:00 Laboratory Results 03/15/17 03:45 03/15/17 03:45 03/14/17 03/15/17 03/16/17 05:59 05:59 05:59 Intake Total 550 500 Output Total 630 5 Balance -80 495 - Physical Exam Constitutional: no apparent distress, appears nourished, not in pain Cardiovascular: regular rate and rhythym, no murmur, rub, or gallop Respiratory: no respiratory distress, no rales or rhonchi, clear to auscultation Gastrointestinal: normoactive bowel sounds, soft, non-tender abdomen, no palpable masses Skin: no rashes or abrasions, no fluctuance, no induration Neurologic: AAOx3, sensation intact bilaterally Psychiatric: interacting appropriately, not anxious, not encephalopathic, thought process linear ICD10 Worksheet Patient Problems: Problems Problem Status Onset Acute renal insufficiency Acute Opiate or related narcotic overdose Acute Pulmonary edema Acute
[2017-03-15] MEDS: CARVEDILOL 3.125 MG TAB PO SCH (17:47)
[2017-03-15] MEDS ORDERED: NON-FORMULARY NEW DRUG (Ranitidine Hcl [Zantac] 150 MG) PO SCH (21:00)
[2017-03-15] MEDS ORDERED: traZODone 50 MG TAB PO SCH (21:00)
[2017-03-15] MEDS ORDERED: NON-FORMULARY NEW DRUG (Escitalopram Oxalate [Lexapro] 20 MG) PO SCH (21:00)
[2017-03-15] MEDS: PRAVASTATIN SODIUM 10 MG TAB PO SCH (21:55)
[2017-03-15] MEDS: ESCITALOPRAM OXALATE 10 MG TAB PO SCH (21:55)
[2017-03-15] MEDS: FAMOTIDINE 20 MG TAB PO SCH (21:55)
[2017-03-15] MEDS: HEPARIN 5,000 UNIT/0.5 ML SYR SC SCH (21:55)
[2017-03-15] MEDS: BUDESONIDE/FORMOTEROL 160/4.5 60 PUFFS/MDI IH SCH (22:08)
[2017-03-16] MEDS: HYDROCODONE/APAP 5/325 TAB PO PRN ×2 (04:24→20:22)
[2017-03-16 04:46] LABS: % IMMATURE GRANULYOCYTES 0.5 % (0.0-1.1); ABSOLUTE IMMATURE GRANULOCYTES 0.04 10^3/uL (0.00-0.10); ADD DIFF? NO; ADD MORPH? NO; ADD SCAN? NO; ATYPICAL LYMPHOCYTE FLAG 0 (0-99); FRAGMENT RBC FLAG 0 (0-99); HEMOGLOBIN 8.9 g/dL (12.6-16.3); LEFT SHIFT FLG 0 (0-99); LIPEMIA HEMOLYSIS FLAG 80 (0-99); MEAN CELL HEMOGLOBIN 30.4 pg (27.9-34.1); MEAN CELL HEMOGLOBIN CONCENTR. 30.7 g/dL (32.4-36.7); MEAN PLATELET VOLUME 12.1 fL (8.7-11.7); PLATELET CLUMPS FLAG 10 (0-99); PLATELET COUNT 143 10^3/uL (150-400); RED BLOOD CELL COUNT 2.93 10^6/uL (4.18-5.33); RED CELL DISTRIBUTION WIDTH 14.6 % (11.5-15.2)
[2017-03-16] MEDS: HEPARIN 5,000 UNIT/0.5 ML SYR SC SCH (05:21)
[2017-03-16] MEDS: CALCIUM ACETATE 667 MG CAP PO SCH ×4 (07:59→20:19)
[2017-03-16 08:51] LABS: ALANINE AMINOTRANSFERASE 28 IU/L (9-52); ALBUMIN 3.7 g/dL (3.5-5.0); ALKALINE PHOSPHATASE 76 IU/L (38-126); ANION GAP 11 mEq/L (8-16); ASPARTATE AMINOTRANSFERASE 27 IU/L (14-46); BILIRUBIN,TOTAL 0.6 mg/dL (0.1-1.4); CALCIUM 9.3 mg/dL (8.5-10.4); CARBON DIOXIDE 25 mEq/l (22-31); CHLORIDE 105 mEq/L (97-110); CREATININE 4.9 mg/dL (0.6-1.0); GLOMERULAR FILTRATION RATE 9; GLUCOSE 91 mg/dL (70-100); MAGNESIUM 2.2 mg/dL (1.6-2.3); POTASSIUM 4.2 mEq/L (3.5-5.2); SODIUM 141 mEq/L (134-144); TOTAL PROTEIN 6.6 g/dL (6.3-8.2)
[2017-03-16] MEDS: CARVEDILOL 3.125 MG TAB PO SCH (09:01)
[2017-03-16 09:03] LABS: TROPONIN I 0.039 ng/mL (0-0.034)
[2017-03-16] MEDS: BUDESONIDE/FORMOTEROL 160/4.5 60 PUFFS/MDI IH SCH ×2 (09:13→20:19)
--- NOTE | 2017-03-16 09:31 | HOSPPROG ---
Hospitalist Progress Note Assessment/Plan: * ESRD with acute uremia -s/p left nephrectomy, right renal artery stenosis -initiating dialysis -uremic symptoms dramatically improved -dialysis catheter until fistula matured * Heart block, 6 second pause -pacer pads -d/w Dr. Glover - likely to need PCM -hold coreg, check TSH/ECHO * Troponin elevation -likely related to renal failure - no CP * Renal artery stenosis - stent complicated by in-stent restenosis * Chronic pain - gabapentin * Renal cell ca s/p left nephrectomy * Obesity BMI 34 Subjective: Had "lump in throat" during time of 6 second pause on tele this am. Objective: Vital Signs Temp Pulse Resp BP Pulse Ox 36.9 C 60 16 141/60 H 17 L 03/16/17 09:03 03/16/17 09:03 03/16/17 04:00 03/16/17 07:58 03/16/17 09:03 Laboratory Results 03/16/17 03:44 03/16/17 08:25 03/15/17 03/16/17 03/17/17 05:59 05:59 05:59 Intake Total 550 860 Output Total 630 405 Balance -80 455 tele strip reviewed - 2nd degree heart block, multiple P waves without QRS, 6 second pause - Physical Exam Constitutional: no apparent distress, appears nourished, not in pain Cardiovascular: regular rate and rhythym, no murmur, rub, or gallop Respiratory: no respiratory distress, no rales or rhonchi, clear to auscultation Gastrointestinal: normoactive bowel sounds, soft, non-tender abdomen, no palpable masses Skin: no rashes or abrasions, no fluctuance, no induration Neurologic: AAOx3, sensation intact bilaterally Psychiatric: interacting appropriately, not anxious, not encephalopathic, thought process linear ICD10 Worksheet Patient Problems: Problems Problem Status Onset Acute renal insufficiency Acute Opiate or related narcotic overdose Acute Pulmonary edema Acute
--- NOTE | 2017-03-16 09:57 | SOAPPROG ---
JOVITA Progress Note Assessment/Plan: Assessment: 1. New ESRD Tolerated HD well yesterday. Labs better today. Cath function good. Fistula in place and with good bruit. 2. Cardiac Pt had long pause today. Hold HD today. Await Cards evaluation. TSH pending. Beta rolando held. 3. Chronic Pain Syndrome She has had issues with appropriate titration of narcotics 4. DC planning Pt lives alone. Need to assure she has appropriate transportation to dialysis in [place]. Subjective: Doing ok Objective: Vital Signs Temp Pulse Resp BP Pulse Ox 36.9 C 60 16 141/60 H 17 L 03/16/17 09:03 03/16/17 09:03 03/16/17 04:00 03/16/17 07:58 03/16/17 09:03 Laboratory Results 03/16/17 03:44 03/16/17 08:25 03/15/17 03/16/17 03/17/17 05:59 05:59 05:59 Intake Total 550 860 Output Total 630 405 Balance -80 455 Physical Exam - Physical Exam General Appearance: no apparent distress Neck: other (catheter tunnel site ok, fistula with good bruit) Respiratory: other (rales RLL) Cardiac/Chest: bradycardia Extremities: normal inspection ICD10 Worksheet Patient Problems: Problems Problem Status Onset Acute renal insufficiency Acute Opiate or related narcotic overdose Acute Pulmonary edema Acute
--- NOTE | 2017-03-16 10:07 | PDCARCONS ---
Cardiology Consult Reason for Consult: Complete heart block Chief Complaint: My heart is changing Requesting Physician: Hospitalist History of Present Illness: 66-year-old female no prior cardiovascular history, history of end-stage renal disease, history of renal cell carcinoma status post nephrectomy, history of peripheral vascular disease with multiple right renal artery PTIs she was admitted to the hospital 2 weeks after an AV fistula was created in her left forearm. This was complicated by a mild erythema. A tunnel catheter was placed yesterday and she was started on dialysis. This morning she developed on telemetry complete heart block with up to 6 second pauses there was no ventricular escape. The patient does not report near-syncope or syncope. She has no palpitations. She has no chest pain. Patient has a history of hypertension which has been quite low after her recent angioplasty. The patient was started on dialysis due to increasing BUN associated with asterixis and general malaise. History Information - Allergies/Home Medication List Allergies/Adverse Reactions: Cephalosporins Allergy (Intermediate, Verified 01/27/17 14:22) Hives Penicillins Allergy (Intermediate, Verified 01/27/17 14:22) Hives morphine Allergy (Mild, Verified 01/27/17 14:22) stomach issue tetanus toxoid, adsorbed Allergy (Mild, Verified 01/27/17 14:22) localized reaction contrast allergy Allergy (Intermediate, Uncoded 01/27/17 14:22) Hives Home Medications: Carvedilol [Coreg (*)] 3.125 mg PO BIDMEAL 09/24/15 [Last Taken 01/26/17 3.125mg ] traZODone [traZODONE 50MG (*)] 50 mg PO HS 09/24/15 [Last Taken 01/26/17 50mg] Budesonide/Formoterol 160/4.5 [Symbicort 160-4.5 Mcg Inh (*)] 1 puffs IH BID [Last Taken 01/27/17] Escitalopram Oxalate [Lexapro] 20 mg PO HS 12/10/16 [Last Taken 01/26/17 20mg] Gabapentin [Neurontin 300 MG (*)] 600 mg PO TID 12/10/16 [Last Taken 01/26/17 300mg] Ranitidine HCl [Zantac] 150 mg PO HS #0 01/24/17 [Last Taken 01/26/17 150mg] Cholecalciferol Vit D3 [Vitamin D3 (*)] 5,000 units PO DAILY #0 02/20/17 [Last Taken Unknown] Albuterol [Proventil Inhaler HFA (*)] 2 puffs IH Q4H PRN 03/15/17 [Last Taken Unknown] Aspirin [Aspirin 81mg (*)] 81 mg PO DAILY 03/15/17 [Last Taken Unknown] Fluticasone Nasal [Flonase Nasal [place] (RX)] 1 sprays NASAL DAILY PRN 03/15/17 [ Last Taken Unknown] Herbals/Supplements -Info Only 1 ea PO DAILY 03/15/17 [Last Taken Unknown] Pravastatin Sodium [Pravachol] 10 mg PO HS 03/15/17 [Last Taken Unknown] I have personally reviewed and updated: family history, medical history, social history, surgical history - Past Medical History hypertension, peripheral artery disease - Surgical History Reports: vascular surgery - Social History Smoking Status: Heavy smoker Physical Exam Temp Pulse Resp BP Pulse Ox 36.9 C 60 16 141/60 H 17 L 03/16/17 09:03 03/16/17 09:03 03/16/17 04:00 03/16/17 07:58 03/16/17 09:03 O2 (L/minute) 95 FIO2 (%) 3 Constitutional: no apparent distress, chronically ill appearing Eyes: anicteric sclera Ears, Nose, Mouth, Throat: poor dentition Cardiovascular: regular rate and rhythym, No systolic murmur Peripheral Pulses: 1+: carotid (R), carotid (L) Respiratory: no respiratory distress, no rales or rhonchi Gastrointestinal: normoactive bowel sounds, soft, non-tender abdomen Skin: warm, other (Av fistula in the left forearm with mild erythema. Port along the right sternal border with mild heme.) Neurologic: AAOx3 Psychiatric: interacting appropriately Lymph, Heme, Immunologic: no cervical LAD, no supraclavicular LAD Lab and Imaging 03/16/17 03:44 03/16/17 08:25 WBC 8.48 10^3/uL (3.80-9.50) 03/16/17 03:44 RBC 2.93 10^6/uL (4.18-5.33) L 03/16/17 03:44 Hgb 8.9 g/dL (12.6-16.3) L 03/16/17 03:44 Hct 29.0 % (38.0-47.0) L 03/16/17 03:44 MCV 99.0 fL (81.5-99.8) 03/16/17 03:44 MCH 30.4 pg (27.9-34.1) 03/16/17 03:44 MCHC 30.7 g/dL (32.4-36.7) L 03/16/17 03:44 RDW 14.6 % (11.5-15.2) 03/16/17 03:44 Plt Count 143 10^3/uL (150-400) L 03/16/17 03:44 MPV 12.1 fL (8.7-11.7) H 03/16/17 03:44 Neut % (Auto) 59.6 % (39.3-74.2) 03/16/17 03:44 Lymph % (Auto) 19.7 % (15.0-45.0) 03/16/17 03:44 Charles % (Auto) 12.9 % (4.5-13.0) 03/16/17 03:44 Eos % (Auto) 5.9 % (0.6-7.6) 03/16/17 03:44 Baso % (Auto) 1.4 % (0.3-1.7) 03/16/17 03:44 Nucleat RBC Rel Count 0.0 % (0.0-0.2) 03/16/17 03:44 Absolute Neuts (auto) 5.06 10^3/uL (1.70-6.50) 03/16/17 03:44 Absolute Lymphs (auto) 1.67 10^3/uL (1.00-3.00) 03/16/17 03:44 Absolute Monos (auto) 1.09 10^3/uL (0.30-0.80) H 03/16/17 03:44 Absolute Eos (auto) 0.50 10^3/uL (0.03-0.40) H 03/16/17 03:44 Absolute Basos (auto) 0.12 10^3/uL (0.02-0.10) H 03/16/17 03:44 Absolute Nucleated RBC 0.00 10^3/uL (0-0.01) 03/16/17 03:44 Immature Gran % 0.5 % (0.0-1.1) 03/16/17 03:44 Immature Gran # 0.04 10^3/uL (0.00-0.10) 03/16/17 03:44 Sodium 141 mEq/L (134-144) 03/16/17 08:25 Potassium 4.2 mEq/L (3.5-5.2) 03/16/17 08:25 Chloride 105 mEq/L (97-110) 03/16/17 08:25 Carbon Dioxide 25 mEq/l (22-31) D 03/16/17 08:25 Anion Gap 11 mEq/L (8-16) 03/16/17 08:25 BUN 46 mg/dL (7-23) H 03/16/17 08:25 Creatinine 4.9 mg/dL (0.6-1.0) H 03/16/17 08:25 Estimated GFR 9 03/16/17 08:25 Glucose 91 mg/dL (70-100) 03/16/17 08:25 Calcium 9.3 mg/dL (8.5-10.4) 03/16/17 08:25 Phosphorus 7.3 mg/dL (2.5-4.5) H D 03/15/17 03:45 Magnesium 2.2 mg/dL (1.6-2.3) 03/16/17 08:25 Total Bilirubin 0.6 mg/dL (0.1-1.4) 03/16/17 08:25 AST 27 IU/L (14-46) 03/16/17 08:25 ALT 28 IU/L (9-52) 03/16/17 08:25 Alkaline Phosphatase 76 IU/L (38-126) 03/16/17 08:25 Troponin I 0.039 ng/mL (0-0.034) H 03/16/17 08:25 Total Protein 6.6 g/dL (6.3-8.2) 03/16/17 08:25 Albumin 3.7 g/dL (3.5-5.0) 03/16/17 08:25 Hep Bs Antigen NEGATIVE (NEGATIVE) 03/15/17 03:45 Hep Bs Antibody NEGATIVE (NEGATIVE) 07/19/17 03:45 Hep B Core IgM Ab NEGATIVE (NEGATIVE) 03/15/17 03:45 Hepatitis C Antibody NEGATIVE (NEGATIVE) 03/15/17 03:45 Telemetry: Telemetry shows sinus rhythm with complete heart block and no ventricular escape with up to 6 second pauses. A/P Assessment: Impression: 66-year-old female on dialysis now with episodes of complete heart block associated with 6 second pauses. Patient is relatively asymptomatic at rest. She is on AV patt agent but I think this is unlikely the cause. This may represent progressive conduction disease versus metabolic changes related to recent dialysis. She has a recently treated vascular infection with possible cellulitis at her AV fistula site. This is in the setting of end- stage renal disease, hypertension, peripheral vascular disease. I think it likely that she is going to require a dual-chamber permanent pacemaker. Timing of implantation is unclear at this point. She is asymptomatic and there is no wallace. Would like Infectious Disease to visit with the patient to clear her from a vascular infection side prior to implantation. In the short term will perform an echocardiogram for assessment of LV function. Will plan for baseline EKG. Pads in place for external pacing if needed. Plan: ECG. Echocardiogram. ID consultation. Past Medical History - Medical/Surgical History Hx Asthma: Yes Hx Chronic Respiratory Disease: Yes Hx Cardiac Disease: No Hx Diabetes: No Hx Renal Disease: Yes Hx Alcoholism: Yes Hx Cirrhosis: No Hx HIV/AIDS: No Hx Splenectomy or Spleen Trauma: No Other PMH: Substance abuse hx, CKD, chronic knee pain, LINNEA/BSO, left nephrectomy for renal ca, left flank hernia, CHRONIC BRONCHITIS - Family History Significant Family History: No pertinent family hx - Social History Smoking Status: Heavy smoker Review of Systems - Review of Systems Constitutional: chills, malaise. denies: fever EENTM: no symptoms reported Respiratory: no symptoms reported Cardiac: no symptoms reported Gastrointestinal/Abdominal: constipation Genitourinary: denies: pain Musculoskelatal: no symptoms Skin: no symptoms Neurological: no symptoms Hematologic/Lymphatic: no symptoms reported Immunologic/allergic: no symptoms reported
[2017-03-16] MEDS: ASPIRIN 81 MG CHEWABLE TAB PO SCH (11:30)
[2017-03-16] MEDS: GABAPENTIN 300 MG CAP PO SCH ×2 (11:31→20:18)
--- NOTE | 2017-03-16 11:44 | CPEKG ---
Heart Rate: 65 RR Interval: 923 P-R Interval: 192 QRSD Interval: 94 QT Interval: 416 QTC Interval: 433 P [place]: 10 QRS [place]: 46 T Wave [place]: 11 EKG Severity - ABNORMAL ECG - EKG Impression: SINUS RHYTHM EKG Impression: MULTIPLE ATRIAL PREMATURE COMPLEXES Electronically Signed By: Sarath Romo 16-Mar-2017 12:44:08
[2017-03-16] MEDS ORDERED: NS 1,000 ML IV SCH (12:00)
[2017-03-16] MEDS ORDERED: VANCOMYCIN HCL/NORMAL SALINE 250 ML IV ONE (12:00)
[2017-03-16] MEDS ORDERED: BACITRACIN IRRIGATION/NS 50,000 UNITS/1,000 ML BTL IRR ONE (12:15)
--- NOTE | 2017-03-16 12:37 | ECHO ---
[id number] + + [address] : : [place] [address] : : [phone] + Adult Echocardiographic Report + --------+ :Name: EMRE ELKINS Date: 03/16/2017 11:00 AM : : Hospital Admission Number: [id number] Locat ion: 202: :: 1950 Gender: Female Height: 62 in : :Age: 66 yrs Race: WH Weight: 186 l b : :Reason For Study: heart block : : BSA: 1.9 mete rs2 : :History: heart block : + --------+ MMode/2D Measurements \T\ Calculations IVSd: 1.4 cm RVDd: 3.4 cm FS: 30.9 % Ao root diam: LVPWd: 1.2 cm LVIDd: 4.7 cm EDV(Teich): 2.7 cm LVIDs: 3.2 cm 101.9 ml ESV(Teich): 42.3 ml EF(Teich): 58.5 % LVOT diam: 1.9 cmLVLd ap4: 8.3 cm SV(MOD-sp4): LVOT area: EDV(MOD-sp4): 95.0 ml 2.7 cm2 154.0 ml LVLs ap4: 6.9 cm ESV(MOD-sp4): 59.0 ml EF(MOD-sp4): 61.7 % Normal Measurement Values: + + :LVIDd (3.5-5.7cm) IVSd (0.6-1.1cm) LVPWd (0.6-1.1cm) Aortic Root (2.0-3.7cm)Left Atrium (1.5-4.0cm): :LV Vol(d) (76-115ml) LV Vol(s) (29-48ml) Ejec Fraction (50-65%)PV Bravo (0.6- 1.2m/s) TV Bravo (0.4-1.0m/s) : :MV E Bravo (0.8-1.0m/s)MV A Bravo (0.3-1.0m/s)LVOT Bravo (0.7-1.2m/s) Asc Ao Bravo ( 0.9-1.8m/s) : + + Doppler Measurements \T\ Calculations MV E max bravo: Ao V2 max: AI max bravo: LV V1 max: 178.2 cm/sec 289.1 cm/sec 421.9 cm/sec 133.3 cm/sec MV A max bravo: Ao max PG: AI max P.2 mmHgLV V1 max P.0 cm/sec 33.4 mmHg AI dec slope: 7.1 mmHg MV E/A: 2.4 Ao mean P.3 cm/sec2 LV V1 mean PG: MV dec time: 20.5 mmHg AI P1/2t: 311.8 msec3.8 mmHg 0.18 sec Ao V2 mean: LV V1 mean: 216.4 cm/sec 93.6 cm/sec Ao V2 VTI: 75.1 cm LV V1 VTI: 32.0 cm LORY(I,D): 1.2 cm2 LORY(V,D): 1.3 cm2 SV(LVOT): 87.0 ml PA V2 max: PI end-d bravo: TR max bravo: 111.3 cm/sec 90.9 cm/sec 305.4 cm/sec PA max PG: TR max P.0 mmHg 37.3 mmHg RAP systole: 15.0 mmHg RVSP(TR): 52.3 mmHg Left Ventricle The left ventricle is normal in size and function. There is normal left ventricular wall thickness. Ejection Fraction = 62%. Grade II diastolic dysfunction. No regional wall motion abnormalities noted. Right Ventricle The right ventricle is normal in size and function. Atria The left atrium is moderately dilated. The Left Atrial Volume is 47 ml/m2. Right atrial size is normal. A dilated inferior vena cava suggests increased right atrial pressure. Mitral Valve The mitral valve leaflets appear thickened, but open well. There is no mitral valve stenosis. There is mild to moderate mitral regurgitation. Tricuspid Valve The tricuspid valve is normal in structure and function. There is no tricuspid stenosis. There is mild to moderate tricuspid regurgitation. There is Doppler evidence for moderate pulmonary hypertension. Right ventricular systolic pressure is 52mmHg. Aortic Valve The aortic valve is not well visualized. Mild Aortic Valve Calcification. Mild valvular aortic stenosis. Moderate to severe aortic regurgitation. Pulmonic Valve The pulmonic valve is not well visualized. Mild pulmonic valvular regurgitation. Great Vessels The aortic root is normal size. Pericardium/Pleural There is no pericardial effusion. Conclusion A two-dimensional transthoracic echocardiogram with M-mode and Doppler was performed. The left ventricle is normal in size and function. Ejection Fraction = 62%. Grade II diastolic dysfunction. The left atrium is moderately dilated. The Left Atrial Volume is 47 ml/m2. A dilated inferior vena cava suggests increased right atrial pressure. There is mild to moderate mitral regurgitation. The aortic valve is not well visualized. Mild Aortic Valve Calcification Mild valvular aortic stenosis. Moderate to severe aortic regurgitation. Mild pulmonic valvular regurgitation. There is Doppler evidence for moderate pulmonary hypertension. Right ventricular systolic pressure is 52mmHg. There is mild to moderate tricuspid regurgitation. Final Reading Physician: Alfonso Cisneros signed on 03/16/2017 12:35 PM Ordering Physician: Demi Gill Performed By: Alcira Turcios
[2017-03-16] MEDS ORDERED: DIAZEPAM 5 MG TAB PO ONE (13:30)
[2017-03-16] MEDS ORDERED: diphenhydrAMINE 25 MG CAP PO ONE (13:30)
[2017-03-16] MEDS: traZODone 50 MG TAB PO SCH (20:19)
[2017-03-16] MEDS: PRAVASTATIN SODIUM 10 MG TAB PO SCH (20:19)
[2017-03-16] MEDS: ESCITALOPRAM OXALATE 10 MG TAB PO SCH (20:19)
[2017-03-16] MEDS: FAMOTIDINE 20 MG TAB PO SCH (20:19)
[2017-03-17 05:04] LABS: % IMMATURE GRANULYOCYTES 0.4 % (0.0-1.1); ABSOLUTE IMMATURE GRANULOCYTES 0.04 10^3/uL (0.00-0.10); ADD DIFF? NO; ADD MORPH? NO; ADD SCAN? NO; ATYPICAL LYMPHOCYTE FLAG 0 (0-99); FRAGMENT RBC FLAG 0 (0-99); HEMOGLOBIN 8.7 g/dL (12.6-16.3); LEFT SHIFT FLG 10 (0-99); LIPEMIA HEMOLYSIS FLAG 80 (0-99); MEAN CELL HEMOGLOBIN 30.7 pg (27.9-34.1); MEAN CELL HEMOGLOBIN CONCENTR. 31.1 g/dL (32.4-36.7); MEAN CELL VOLUME 98.9 fL (81.5-99.8); MEAN PLATELET VOLUME 12.2 fL (8.7-11.7); PLATELET CLUMPS FLAG 0 (0-99); PLATELET COUNT 141 10^3/uL (150-400); RED BLOOD CELL COUNT 2.83 10^6/uL (4.18-5.33); RED CELL DISTRIBUTION WIDTH 14.6 % (11.5-15.2)
[2017-03-17 05:13] LABS: INR 1.15 (0.83-1.16); PROTIME(PATIENT) 14.6 SEC (12.0-15.0)
[2017-03-17 05:14] LABS: APTT 31.4 SEC (23.0-38.0)
[2017-03-17 05:25] LABS: ALANINE AMINOTRANSFERASE 28 IU/L (9-52); ALBUMIN 3.3 g/dL (3.5-5.0); ALKALINE PHOSPHATASE 71 IU/L (38-126); ANION GAP 15 mEq/L (8-16); ASPARTATE AMINOTRANSFERASE 20 IU/L (14-46); BILIRUBIN,TOTAL 0.7 mg/dL (0.1-1.4); CALCIUM 9.4 mg/dL (8.5-10.4); CARBON DIOXIDE 20 mEq/l (22-31); CHLORIDE 106 mEq/L (97-110); CREATININE 4.8 mg/dL (0.6-1.0); GLOMERULAR FILTRATION RATE 9; GLUCOSE 85 mg/dL (70-100); POTASSIUM 4.2 mEq/L (3.5-5.2); SODIUM 141 mEq/L (134-144); TOTAL PROTEIN 5.8 g/dL (6.3-8.2)
[2017-03-17] MEDS ORDERED: diphenhydrAMINE 25 MG CAP PO ONE (06:00)
[2017-03-17] MEDS ORDERED: DIAZEPAM 5 MG TAB PO ONE (06:00)
[2017-03-17] MEDS ORDERED: NS 1,000 ML IV SCH (06:00)
[2017-03-17] MEDS ORDERED: NS 1,000 ML IV ONE (06:00)
[2017-03-17] MEDS ORDERED: VANCOMYCIN HCL/NORMAL SALINE 250 ML IV ONE (06:00)
[2017-03-17] MEDS ORDERED: BACITRACIN IRRIGATION/NS 50,000 UNITS/1,000 ML BTL IRR ONE (06:00)
[2017-03-17] MEDS ORDERED: fentaNYL 100 MCG/2 ML INJ ONE ×2 (06:40→08:40)
[2017-03-17] MEDS ORDERED: LIDOCAINE 1% 300 MG/30 ML SDV ONE (06:40)
[2017-03-17] MEDS ORDERED: MIDAZOLAM 2 MG/2 ML VIAL ONE (06:40)
[2017-03-17] MEDS ORDERED: LIDO/EPI 1% **for epidural** 30 ML SDV ONE (06:41)
[2017-03-17] MEDS ORDERED: BUPIVACAINE 0.5% 30 ML SDV ONE (06:41)
[2017-03-17] MEDS ORDERED: methylPREDNISolone SOD SUCC 125 MG/2 ML VIAL ONE (07:19)
[2017-03-17] MEDS: BUDESONIDE/FORMOTEROL 160/4.5 60 PUFFS/MDI IH SCH ×2 (08:54→22:26)
--- NOTE | 2017-03-17 09:02 | EPPROC ---
Electrophysiology Procedure Note: PROCEDURE PERFORMED: Implantation of an A/V Pacemaker Fluoroscopy INDICATION: This is a 66 yr old with renal failure who had paroxysmal complete heart block with presyncope. In view of this, it was decided to implant a dual chamber pacemaker. PROCEDURE NOTE: Patient presented to the cardiac catheterization laboratory in a fasting, post absorptive state. Cardiac cardiac catheterization technician nurse administered moderate sedation. The right infraclavicular area was prepped and draped in the usual sterile fashion. Lidocaine plus bupivacaine was used for local anesthesia. All bleeding was controlled with electrocautery. Fluoroscopy was utilized during the entire procedure for venous access and placement of the leads. Using the usual technique, right cephalic vein was accessed and a glidewire was placed. Through this initially a 9F and later a 7F sheath was passed. Placement of the guidewires into the venous system was confirmed by low- pressure blood return and also by visualizing the guidewires advancing into the inferior vena cava. A purse string suture was applied around the guidewires. An active fixation ventricular lead was advanced into the right ventricular apex and screwed in place. An active fixation atrial lead was advanced into the right atrial appendage and screwed in place. The peel away sheaths were removed. Pacing thresholds, sensing parameters and lead impedances were measured. There was no diaphragmatic stimulation at maximum output. The leads were sutured to the prepectoral fascia with 3 nonabsorbable sutures each. The pocket was created and it was flushed using antibiotic solution. It was inspected for any bleeding. The leads were attached to the pacemaker securely. The pacemaker was inserted into the pocket and secured in place with a nonabsorbable suture. Fluoroscopy was performed in GUEVARA and ZEINA planes to verify right-sided placement of the leads. Also fluoroscopy of the pacemaker pocket was performed. The pacemaker pocket was closed in 3 layers with absorbable vicryl sutures. Steristrips were placed. Appropriate dressing was applied. The patient left the cardiac catheterization laboratory in stable condition. Serial Numbers: Device: NutraMed Arin Benjamin DR SN [id number] Atrial Lead: Biotronik Solia S45 SN [id number] Ventricular Lead: Biotronik Solia S53 SN [id number] Stimulation Thresholds & Impedance Measurements: Atrial Lead 1.2mV, 0.9@0.4ms, 429Ohms Ventricular Lead 6mV, 0.6@0.4ms, 526Ohms Daryl Pacing Parameters Pacing mode: DDD Lower rate: 60 Upper tracking rate: 120 Patient Problems: Problems Problem Status Onset Complete heart block Acute Acute renal insufficiency Acute Opiate or related narcotic overdose Acute Pulmonary edema Acute
--- NOTE | 2017-03-17 11:51 | SOAPPROG ---
SOAP Progress Note Assessment/Plan: Assessment: Pt not seen, gone for PPM placement. Will dialyze after. To dialyze at [facility] schedule after discharge. CM should call to confirm time. Will dialyze again tomorrow to get on outpatient schedule. Plan: 03/17/17 11:50 Objective: Vital Signs Temp Pulse Resp BP Pulse Ox 36.7 C 78 17 184/65 H 97 03/17/17 10:49 03/17/17 10:49 03/17/17 10:49 03/17/17 10:49 03/17/17 10:49 Laboratory Results 03/17/17 03:21 03/17/17 03:21 03/16/17 03/17/17 03/18/17 05:59 05:59 05:59 Intake Total 860 400 Output Total 405 200 Balance 455 200 PT 14.6 SEC (12.0-15.0) 03/17/17 03:21 INR 1.15 (0.83-1.16) 03/17/17 03:21 ICD10 Worksheet Patient Problems: Problems Problem Status Onset Complete heart block Acute Opiate or related narcotic overdose Acute Acute renal insufficiency Acute Pulmonary edema Acute
[2017-03-17] MEDS ORDERED: HEPARIN 50,000 UNIT/10 ML VIAL ONE ×2 (14:00→22:17)
--- NOTE | 2017-03-17 15:29 | HOSPPROG ---
Hospitalist Progress Note Assessment/Plan: * ESRD with acute uremia -s/p left nephrectomy, right renal artery stenosis -initiating dialysis -uremic symptoms dramatically improved -dialysis catheter until fistula matured * Heart block, 6 second pause -s/p PPM * Troponin elevation -likely related to renal failure - no CP * Renal artery stenosis - stent complicated by in-stent restenosis * Chronic pain - gabapentin -continuous narcotic dependency - continue Vicodin * Renal cell ca s/p left nephrectomy * Obesity BMI 34 * Low TSH - check free T4 Subjective: No new complaints, anxious for discharge. Objective: Vital Signs Temp Pulse Resp BP Pulse Ox 36.7 C 62 12 140/84 H 97 03/17/17 10:49 03/17/17 12:00 03/17/17 12:00 03/17/17 12:00 03/17/17 12:00 Laboratory Results 03/17/17 03:21 03/17/17 03:21 03/16/17 03/17/17 03/18/17 05:59 05:59 05:59 Intake Total 860 400 Output Total 405 200 450 Balance 455 200 -450 PT 14.6 SEC (12.0-15.0) 03/17/17 03:21 INR 1.15 (0.83-1.16) 03/17/17 03:21 EKG viewed, my personal interpretation is - some lateral ST depression, no heart block Foot Xray - hairline fracture 5th digit ECHO - normal ef, mod/severe AR - Physical Exam Constitutional: no apparent distress, appears nourished, not in pain Cardiovascular: regular rate and rhythym, no murmur, rub, or gallop Respiratory: no respiratory distress, no rales or rhonchi, clear to auscultation Gastrointestinal: normoactive bowel sounds, soft, non-tender abdomen, no palpable masses Skin: no rashes or abrasions, no fluctuance, no induration Neurologic: AAOx3, sensation intact bilaterally, asterixes (but improved) Psychiatric: interacting appropriately, not anxious, not encephalopathic, thought process linear ICD10 Worksheet Patient Problems: Problems Problem Status Onset Complete heart block Acute Acute renal insufficiency Acute Opiate or related narcotic overdose Acute Pulmonary edema Acute
[2017-03-17] MEDS: HYDROCODONE/APAP 5/325 TAB PO PRN ×3 (16:20→23:48)
[2017-03-17] MEDS ORDERED: hydrALAZINE 20 MG/ML VIAL IVP PRN (16:28)
[2017-03-17] MEDS: IPRATROPIUM/ALBUTEROL 3 ML DEYVIAL IH SCH ×2 (16:57→22:26)
[2017-03-17] MEDS ORDERED: FUROSEMIDE 40 MG/4 ML VIAL ONE (17:07)
[2017-03-17] MEDS ORDERED: FUROSEMIDE 40 MG/4 ML VIAL IVP ONE (17:15)
[2017-03-17 17:19] LABS: BASE EXCESS -3.6 mEq/L (-2.5-2.5); BICARBONATE 21 mEq/L (22-26); MEASURED OXYGEN SATURATION 96 % (92-95); PCO2 38 mmHg (34-38); PO2 80 mmHg (65-75); TCO2 22 mEq/L (23-27)
[2017-03-17] MEDS ORDERED: NITROGLYCERIN/DEXTROSE 250 ML IV SCH (17:30)
[2017-03-17] MEDS: CALCIUM ACETATE 667 MG CAP PO SCH ×2 (17:39→17:40)
[2017-03-17] MEDS: ASPIRIN 81 MG CHEWABLE TAB PO SCH (17:39)
[2017-03-17] MEDS: GABAPENTIN 300 MG CAP PO SCH ×2 (17:39→22:14)
[2017-03-17] MEDS: ESCITALOPRAM OXALATE 10 MG TAB PO SCH (22:14)
[2017-03-17] MEDS: FAMOTIDINE 20 MG TAB PO SCH (22:14)
[2017-03-17] MEDS: PRAVASTATIN SODIUM 10 MG TAB PO SCH (22:15)
[2017-03-17] MEDS: traZODone 50 MG TAB PO SCH (22:15)
[2017-03-18 04:39] LABS: % IMMATURE GRANULYOCYTES 0.7 % (0.0-1.1); ABSOLUTE IMMATURE GRANULOCYTES 0.07 10^3/uL (0.00-0.10); ADD DIFF? NO; ADD MORPH? NO; ADD SCAN? NO; ATYPICAL LYMPHOCYTE FLAG 0 (0-99); FRAGMENT RBC FLAG 20 (0-99); HEMOGLOBIN 9.1 g/dL (12.6-16.3); LEFT SHIFT FLG 0 (0-99); LIPEMIA HEMOLYSIS FLAG 80 (0-99); MEAN CELL HEMOGLOBIN 30.7 pg (27.9-34.1); MEAN CELL HEMOGLOBIN CONCENTR. 31.4 g/dL (32.4-36.7); MEAN PLATELET VOLUME 12.6 fL (8.7-11.7); PLATELET CLUMPS FLAG 10 (0-99); PLATELET COUNT 133 10^3/uL (150-400); RED BLOOD CELL COUNT 2.96 10^6/uL (4.18-5.33); RED CELL DISTRIBUTION WIDTH 14.5 % (11.5-15.2)
[2017-03-18 04:51] LABS: ALBUMIN 3.2 g/dL (3.5-5.0); ANION GAP 11 mEq/L (8-16); CALCIUM 9.9 mg/dL (8.5-10.4); CARBON DIOXIDE 25 mEq/l (22-31); CHLORIDE 104 mEq/L (97-110); CREATININE 3.5 mg/dL (0.6-1.0); GLOMERULAR FILTRATION RATE 13; GLUCOSE 138 mg/dL (70-100); POTASSIUM 4.2 mEq/L (3.5-5.2); SODIUM 140 mEq/L (134-144)
[2017-03-18] MEDS: IPRATROPIUM/ALBUTEROL 3 ML DEYVIAL IH SCH (05:49)
[2017-03-18] MEDS: HYDROCODONE/APAP 5/325 TAB PO PRN ×4 (07:21→20:13)
--- NOTE | 2017-03-18 08:12 | ECHO ---
[id number] + + [phone] : : [place] [address] : : [phone] + Adult Echocardiographic Report + --------+ :Name: EMRE ELKINS Date: 03/17/2017 05:33 PM : : Hospital Admission Number: [id number] Locat ion: 202: :: 1950 Gender: Female : :Age: 66 yrs Race: WH : :Reason For Study: severe shortness of breath : :History: S/P pacemaker : + --------+ Conclusion STAT limited echocardiogram to rule out pericardial effusion. Patient sitting straight up on side of bed throughout test. Trivial pericardial effusion noted. No echocardiographic evidence of cardiac tamponade. Final Reading Physician: Alfonso Warren signed on 03/18/2017 08:10 AM Ordering Physician: Cedric Lyman Referring Physician: Ke Sandhu MD Performed By: Alcira Turcios
[2017-03-18] MEDS: CALCIUM ACETATE 667 MG CAP PO SCH ×3 (08:23→18:46)
[2017-03-18] MEDS ORDERED: HEPARIN 10,000 UNIT/10 ML MDV IVP PRN (08:30)
[2017-03-18] MEDS ORDERED: HEPARIN/DEXTROSE 500 ML IV SCH (08:30)
[2017-03-18] MEDS ORDERED: HEPARIN 10,000 UNIT/10 ML MDV IVP ONE (08:30)
[2017-03-18] MEDS ORDERED: VANCOMYCIN HCL/NORMAL SALINE 250 ML IV SCH (09:00)
--- NOTE | 2017-03-18 09:16 | CPEKG ---
Heart Rate: 64 RR Interval: 938 P-R Interval: 164 QRSD Interval: 98 QT Interval: 448 QTC Interval: 463 P [place]: -2 QRS [place]: 47 T Wave [place]: 56 EKG Severity - NORMAL ECG - EKG Impression: SINUS RHYTHM Electronically Signed By: Sarath Romo 18-Mar-2017 16:46:04
[2017-03-18] MEDS: BUDESONIDE/FORMOTEROL 160/4.5 60 PUFFS/MDI IH SCH ×2 (09:17→21:30)
--- NOTE | 2017-03-18 09:26 | SOAPPROG ---
JOVITA Progress Note Assessment/Plan: Assessment:1. third degree heart block..s/p permanent pacer ..interrogation ok today 2.sob episode..suspect volume overload with respiratory distress and diastolic chf...on dialysis today without problems...will continue to follow ...no cath needed today...will follow 2. cri...recent initiation of hemodialysis. Plan:12. as ordered 03/18/17 09:28 Subjective: pt feeling better today ...reviewed events of yesterday with pt and rn....reviewed echo no evidence of ischemia( pt tachycardic) and ekg..(nsr no ischemia)...pt with h/o asthma..pt had dialysis with 3 liters removed and on dialysis now with planned 2 more liter removal..she is stable asymptomatic and feeling ok today...no h/o cad or acs symptoms prior to hospitalization Objective: Vital Signs Temp Pulse Resp BP Pulse Ox 36.8 C 73 22 H 123/53 H 96 03/18/17 08:00 03/18/17 08:00 03/18/17 08:00 03/18/17 08:00 03/18/17 08:00 Laboratory Results 03/18/17 04:20 03/18/17 04:20 03/17/17 03/18/17 03/19/17 05:59 05:59 05:59 Intake Total 400 320 Output Total 200 450 Balance 200 -130 PT 14.6 SEC (12.0-15.0) 03/17/17 03:21 INR 1.15 (0.83-1.16) 03/17/17 03:21 Physical Exam - Physical Exam Respiratory: lungs clear Cardiac/Chest: normal peripheral pulses, regular rate, rhythm ICD10 Worksheet Patient Problems: Problems Problem Status Onset Complete heart block Acute Acute renal insufficiency Acute Opiate or related narcotic overdose Acute Pulmonary edema Acute
--- NOTE | 2017-03-18 10:10 | SOAPPROG ---
SOAP Progress Note Assessment/Plan: Assessment/Plan: ESRD: pt now initiated on HD, had HD yesterday and again today. She has a spot on TTS at [facility] as an outpatient. - HD being done today. - Will plan on next HD being on Monday unless another need arises. Hypervolemia: Pt had flash pulmonary edema with respiratory distress yesterday requiring BiPAP, has improved with fluid removal 3L last night, taking off another 3L today. BRENNAN: Phos 4.0, continue Phoslo with meals. Subjective: Pt had pacemaker placement yesterday and then HD with no fluid removed. She had been more hypertensive through the day and went up to 200s systolic. In evening she developed respiratory distress and appeared to have flash pulmonary edema, was transferred to ICU and put on BiPAP with improvement, got UF last night with 3L removed. She is feeling better today, down to 2L NC, HD being done again today with another 3L to be removed. Objective: Vital Signs Temp Pulse Resp BP Pulse Ox 36.8 C 60 22 H 123/53 H 97 03/18/17 08:00 03/18/17 09:15 03/18/17 08:00 03/18/17 08:00 03/18/17 09:15 Laboratory Results 03/18/17 04:20 03/18/17 04:20 03/17/17 03/18/17 03/19/17 05:59 05:59 05:59 Intake Total 400 320 Output Total 200 450 Balance 200 -130 PT 14.6 SEC (12.0-15.0) 03/17/17 03:21 INR 1.15 (0.83-1.16) 03/17/17 03:21 General: alert and oriented, no acute distress Eyes; EOMI, PERRL OP: Clear CV: RRR Resp: nonlabored respiraitons on 2L NC Abd: Soft, NT Ext: no edema BLE Neuro: CN II-XII grossly intact, no asterixis Psych: cooperative, appropriate mood and affect Access: RIJ tunneled catheter ICD10 Worksheet Patient Problems: Problems Problem Status Onset Complete heart block Acute Acute renal insufficiency Acute Opiate or related narcotic overdose Acute Pulmonary edema Acute
[2017-03-18] MEDS: GABAPENTIN 300 MG CAP PO SCH ×3 (10:44→20:59)
[2017-03-18] MEDS: ASPIRIN 81 MG CHEWABLE TAB PO SCH (10:44)
[2017-03-18] MEDS ORDERED: HEPARIN 50,000 UNIT/10 ML VIAL ONE (11:14)
[2017-03-18] MEDS: HEPARIN 5,000 UNIT/0.5 ML SYR SC SCH ×2 (13:49→20:07)
[2017-03-18] MEDS: NICOTINE 14 MG/24 HR PATCH TD SCH (14:03)
--- NOTE | 2017-03-18 14:33 | HOSPPROG ---
Hospitalist Progress Note Assessment/Plan: * Acute respiratory failure due to flash pulmonary edema -may be all from hypervolemia due to ESRD -with positive troponin concerning for cardiac ischemia -better s/p acute dialysis last night * ESRD with acute uremia -s/p left nephrectomy, right renal artery stenosis -initiating dialysis - continue as outpatient post discharge -dialysis catheter until fistula matured * Heart block, 6 second pause -s/p PPM * Troponin elevation - non-STEMI -consider cardiac catheterization before discharge * Renal artery stenosis - stent complicated by in-stent restenosis * HTN emergency - s/p IV NTG gtt -BP better now - consider add oral agent * Chronic pain - gabapentin -continuous narcotic dependency - continue Vicodin * Renal cell ca s/p left nephrectomy * Obesity BMI 34 * Subclinical hypothyroidism Subjective: Feels much better. Wants to go home MALI Objective: Vital Signs Temp Pulse Resp BP Pulse Ox 36.8 C 71 18 150/45 H 94 03/18/17 11:53 03/18/17 11:53 03/18/17 11:53 03/18/17 11:53 03/18/17 11:53 Laboratory Results 03/18/17 04:20 03/18/17 04:20 03/17/17 03/18/17 03/19/17 05:59 05:59 05:59 Intake Total 400 320 Output Total 200 450 Balance 200 -130 PT 14.6 SEC (12.0-15.0) 03/17/17 03:21 INR 1.15 (0.83-1.16) 03/17/17 03:21 EKG viewed, my personal interpretation is - NSR, no ischemic changes CXR - persistent CHF - Physical Exam Constitutional: no apparent distress, appears nourished, not in pain Cardiovascular: regular rate and rhythym, no murmur, rub, or gallop Respiratory: no respiratory distress, inspiratory crackles, No no rales or rhonchi, No clear to auscultation, No expiratory wheeze, No rhonchi Gastrointestinal: normoactive bowel sounds, soft, non-tender abdomen, no palpable masses Skin: no rashes or abrasions, no fluctuance, no induration Neurologic: AAOx3, sensation intact bilaterally Psychiatric: interacting appropriately, not anxious, not encephalopathic, thought process linear ICD10 Worksheet Patient Problems: Problems Problem Status Onset Complete heart block Acute Acute renal insufficiency Acute Opiate or related narcotic overdose Acute Pulmonary edema Acute
--- NOTE | 2017-03-18 15:33 | WOCRNPDOC ---
WOCRN Advanced Assessment Note - Skin Integrity Problem, Advanced Assess Gluteal Cleft Dermatitis Dressing Type: Open to Air Exudate Amount: None Wound Bed Constitution: Smooth Tissue Site Measurement - Head-to-Toe Length X Width X Depth (cm): 0.8x0.1x0.1 Skin Integrity Problem Comment: Not pressure related. Small amount of intertriginous dermatitis. Also patient reports psoriasis in the area which causes itching and dryness. Wound care will sign off.
[2017-03-18] MEDS: FAMOTIDINE 20 MG TAB PO SCH (20:07)
[2017-03-18] MEDS: PRAVASTATIN SODIUM 10 MG TAB PO SCH (20:07)
[2017-03-18] MEDS: ESCITALOPRAM OXALATE 10 MG TAB PO SCH (20:09)
[2017-03-18] MEDS: traZODone 50 MG TAB PO SCH (20:59)
[2017-03-19 04:39] LABS: % IMMATURE GRANULYOCYTES 0.4 % (0.0-1.1); ABSOLUTE IMMATURE GRANULOCYTES 0.04 10^3/uL (0.00-0.10); ADD DIFF? NO; ADD MORPH? NO; ADD SCAN? NO; ATYPICAL LYMPHOCYTE FLAG 0 (0-99); FRAGMENT RBC FLAG 0 (0-99); HEMATOCRIT 30.2 % (38.0-47.0); HEMOGLOBIN 9.2 g/dL (12.6-16.3); LEFT SHIFT FLG 0 (0-99); LIPEMIA HEMOLYSIS FLAG 80 (0-99); MEAN CELL HEMOGLOBIN 30.5 pg (27.9-34.1); MEAN CELL HEMOGLOBIN CONCENTR. 30.5 g/dL (32.4-36.7); MEAN PLATELET VOLUME 12.8 fL (8.7-11.7); PLATELET CLUMPS FLAG 10 (0-99); PLATELET COUNT 133 10^3/uL (150-400); RED BLOOD CELL COUNT 3.02 10^6/uL (4.18-5.33); RED CELL DISTRIBUTION WIDTH 14.7 % (11.5-15.2)
[2017-03-19 04:55] LABS: ANION GAP 9 mEq/L (8-16); CALCIUM 9.7 mg/dL (8.5-10.4); CARBON DIOXIDE 27 mEq/l (22-31); CHLORIDE 102 mEq/L (97-110); CHOLESTEROL 119 mg/dL (140-220); CHOLESTEROL/HDL RATIO 4.25 RATIO (1.00-4.44); CREATININE 3.6 mg/dL (0.6-1.0); GLOMERULAR FILTRATION RATE 13; GLUCOSE 90 mg/dL (70-100); HIGH DENSITY LIPOPROTEIN 28 mg/dL (40-85); LDL/HDL RATIO 2.07 RATIO (1.00-3.22); LOW DENSITY LIPOPROTEIN 58 mg/dL (80-100); NON-HIGH DENSITY LIPOPROTEIN 91 mg/dL (90-129); POTASSIUM 4.3 mEq/L (3.5-5.2); SODIUM 138 mEq/L (134-144); TRIGLYCERIDE 166 mg/dL (35-135); VERY LOW DENSITY LIPOPROTEINS 33 mg/dL (8-25)
[2017-03-19] MEDS: BUDESONIDE/FORMOTEROL 160/4.5 60 PUFFS/MDI IH SCH ×2 (08:10→20:01)
--- NOTE | 2017-03-19 08:35 | SOAPPROG ---
SOAP Progress Note Assessment/Plan: Assessment:1. third degree heart block..s/p permanent pacer ..interrogation ok yesterday....nsr with rare pvc last 24 hours 2.sob episode..suspect volume overload with respiratory distress and diastolic chf....no issues for last 24 hours....rec lexiscan tm monday..( iodine allergy with hives but has tolerated iv contrast in past) 2. cri...recent initiation of hemodialysis. Plan:12. as ordered 03/18/17 09:28 03/19/17 08:31 Subjective: pt feeling well..no issues overnight..tolerated dialysis without issues.. Objective: Vital Signs Temp Pulse Resp BP Pulse Ox 36.4 C 88 20 157/58 H 96 03/18/17 23:18 03/19/17 08:10 03/19/17 08:10 03/19/17 08:10 03/19/17 08:10 Laboratory Results 03/19/17 04:22 03/19/17 04:22 03/18/17 03/19/17 03/20/17 05:59 05:59 05:59 Intake Total 320 500 Output Total 450 100 Balance -130 400 PT 14.6 SEC (12.0-15.0) 03/17/17 03:21 INR 1.15 (0.83-1.16) 03/17/17 03:21 Physical Exam - Physical Exam Respiratory: lungs clear (some wheezing with forced expiration) Cardiac/Chest: normal peripheral pulses, regular rate, rhythm, No edema ICD10 Worksheet Patient Problems: Problems Problem Status Onset Complete heart block Acute Acute renal insufficiency Acute Opiate or related narcotic overdose Acute Pulmonary edema Acute
[2017-03-19] MEDS: CALCIUM ACETATE 667 MG CAP PO SCH ×3 (08:40→19:21)
[2017-03-19] MEDS: ASPIRIN 81 MG CHEWABLE TAB PO SCH (08:40)
[2017-03-19] MEDS: HEPARIN 5,000 UNIT/0.5 ML SYR SC SCH ×4 (08:41→20:50)
[2017-03-19] MEDS: GABAPENTIN 300 MG CAP PO SCH ×2 (08:41→20:49)
[2017-03-19] MEDS: NICOTINE 14 MG/24 HR PATCH TD SCH (08:41)
[2017-03-19] MEDS ORDERED: amLODIPine BESYLATE 5 MG TAB PO SCH (09:15)
[2017-03-19] MEDS: HYDROCODONE/APAP 5/325 TAB PO PRN ×3 (09:47→20:50)
--- NOTE | 2017-03-19 09:53 | SOAPPROG ---
SOAP Progress Note Assessment/Plan: Assessment/Plan: ESRD: pt now initiated on HD, had HD yesterday and again today. She has a spot on TTS at [facility] as an outpatient. - HD last done on Monday. - Will plan on next HD being on Monday unless another need arises. Hypervolemia: Pt had flash pulmonary edema with respiratory distress on Monday requiring BiPAP, improved with PUF and HD done with a total of 6L removed. Will continue to modulate fluid removal on HD. BRENNAN: Phos 3.9, continue Phoslo with meals. HTN: uncontrolled, will start amlodipine. Subjective: No acute events overnight. Pt states that she feels great, breathing comfortably, no swelling, tolerated HD well yesterday, wants to go home soon but is likely being kept for stress test tomorrow. Objective: Vital Signs Temp Pulse Resp BP Pulse Ox 36.9 C 61 14 163/119 H 92 03/19/17 08:49 03/19/17 08:49 03/19/17 08:49 03/19/17 08:49 03/19/17 08:49 Laboratory Results 03/19/17 04:22 03/19/17 04:22 03/18/17 03/19/17 03/20/17 05:59 05:59 05:59 Intake Total 320 500 Output Total 450 100 475 Balance -130 400 -475 PT 14.6 SEC (12.0-15.0) 03/17/17 03:21 INR 1.15 (0.83-1.16) 03/17/17 03:21 General: alert and oriented, no acute distress Eyes; EOMI, PERRL OP: Clear CV: RRR Resp: CTA bilat, nonlabored respirations on RA Abd: Soft, NT Ext: no edema BLE Neuro: CN II-XII grossly intact, no asterixis Psych; cooperative, appropriate mood and affect Access: R IJ tunneled catheter ICD10 Worksheet Patient Problems: Problems Problem Status Onset Complete heart block Acute Acute renal insufficiency Acute Opiate or related narcotic overdose Acute Pulmonary edema Acute
--- NOTE | 2017-03-19 14:16 | HOSPPROG ---
Hospitalist Progress Note Assessment/Plan: * Acute respiratory failure due to flash pulmonary edema -may be all from hypervolemia due to ESRD -with positive troponin concerning for cardiac ischemia -better s/p acute dialysis 6L * ESRD with acute uremia -s/p left nephrectomy, right renal artery stenosis with failed stenting -initiating dialysis - continue as outpatient post discharge -dialysis catheter until fistula matured * Heart block, 6 second pause -s/p PPM * Troponin elevation - non-STEMI -her flash pulmonary edema was very dramatic -within 15 minutes went from 3L to almost needing intubation -concerning for ischemia as cause -d/w Dr. Foreman - stress test in am -consider cardiac cath * Renal artery stenosis of unilateral kidney -stent complicated by in-stent restenosis with progressive renal damage * HTN emergency - s/p IV NTG gtt -severe adverse side effect to amlodipine (fatigue) -d/w Dr. Sandhu - ok for ACEI as now on HD -start lisinopril * Chronic pain - gabapentin -continuous narcotic dependency - continue Vicodin * Renal cell ca s/p left nephrectomy * Obesity BMI 34 * Subclinical hypothyroidism Subjective: No new complaints. Objective: Vital Signs Temp Pulse Resp BP Pulse Ox 36.8 C 61 14 148/63 H 98 03/19/17 12:00 03/19/17 12:00 03/19/17 12:00 03/19/17 12:00 03/19/17 12:00 Laboratory Results 03/19/17 04:22 03/19/17 04:22 03/18/17 03/19/17 03/20/17 05:59 05:59 05:59 Intake Total 320 500 100 Output Total 450 100 475 Balance -130 400 -375 PT 14.6 SEC (12.0-15.0) 03/17/17 03:21 INR 1.15 (0.83-1.16) 03/17/17 03:21 tele reviewed - NSR - Physical Exam Constitutional: no apparent distress, appears nourished, not in pain Cardiovascular: regular rate and rhythym, no murmur, rub, or gallop Respiratory: no respiratory distress, no rales or rhonchi, clear to auscultation Gastrointestinal: normoactive bowel sounds, soft, non-tender abdomen, no palpable masses Skin: no rashes or abrasions, no fluctuance, no induration Neurologic: AAOx3, sensation intact bilaterally Psychiatric: interacting appropriately, not anxious, not encephalopathic, thought process linear ICD10 Worksheet Patient Problems: Problems Problem Status Onset Complete heart block Acute Acute renal insufficiency Acute Opiate or related narcotic overdose Acute Pulmonary edema Acute
[2017-03-19] MEDS: ESCITALOPRAM OXALATE 10 MG TAB PO SCH (20:49)
[2017-03-19] MEDS: FAMOTIDINE 20 MG TAB PO SCH (20:49)
[2017-03-19] MEDS: PRAVASTATIN SODIUM 10 MG TAB PO SCH (20:50)
[2017-03-20] MEDS: traZODone 50 MG TAB PO SCH (00:55)
[2017-03-20] MEDS: HYDROCODONE/APAP 5/325 TAB PO PRN (03:39)
[2017-03-20 05:04] LABS: ALBUMIN 3.5 g/dL (3.5-5.0); ANION GAP 13 mEq/L (8-16); CALCIUM 10.1 mg/dL (8.5-10.4); CARBON DIOXIDE 24 mEq/l (22-31); CHLORIDE 103 mEq/L (97-110); CREATININE 4.4 mg/dL (0.6-1.0); GLOMERULAR FILTRATION RATE 10; GLUCOSE 88 mg/dL (70-100); POTASSIUM 4.3 mEq/L (3.5-5.2); SODIUM 140 mEq/L (134-144)
[2017-03-20] MEDS: HEPARIN 5,000 UNIT/0.5 ML SYR SC SCH (05:25)
[2017-03-20 07:37] VITALS: BP 111/63; TEMP 97.8
[2017-03-20] MEDS: LISINOPRIL 10 MG TAB PO SCH ×2 (08:46→08:49)
[2017-03-20] MEDS: ASPIRIN 81 MG CHEWABLE TAB PO SCH (08:46)
[2017-03-20] MEDS: CALCIUM ACETATE 667 MG CAP PO SCH (08:46)
[2017-03-20] MEDS: NICOTINE 14 MG/24 HR PATCH TD SCH (08:46)
[2017-03-20] MEDS: BUDESONIDE/FORMOTEROL 160/4.5 60 PUFFS/MDI IH SCH (09:06)
[2017-03-20 09:08] VITALS: PULSE 71; RESP 16; O2SAT 90
[2017-03-20] MEDS: GABAPENTIN 300 MG CAP PO SCH (09:19)
--- NOTE | 2017-03-20 09:27 | SOAPPROG ---
SOAP Progress Note Assessment/Plan: Assessment: 1. ESRD. HD on TTS schedule at 11 am at [facility] dialysis unit. Pt will report there tomorrow. 2. Flash pulmonary edema. Likely due to vol o/l, DD, YENNY. Improved with UF over weekend. Will need stress test but refusing to stay for this. 3. CHB/bradycardia. S/p PPM. F/u with Dr. Foreman. Plan: 03/17/17 11:50 03/20/17 09:24 Subjective: Breathing back to normal. No complaints. Refusing stress test today, wants to go home. Objective: Vital Signs Temp Pulse Resp BP Pulse Ox 36.6 C 71 16 111/63 90 L 03/20/17 07:35 03/20/17 09:06 03/20/17 09:06 03/20/17 07:35 03/20/17 09:06 Laboratory Results 03/20/17 04:27 03/20/17 04:27 03/19/17 03/20/17 03/21/17 05:59 05:59 05:59 Intake Total 500 990 Output Total 100 1375 Balance 400 -385 PT 14.6 SEC (12.0-15.0) 03/17/17 03:21 INR 1.15 (0.83-1.16) 03/17/17 03:21 Comfortable, dressed in street clothes, sitting RRR, II/ SHARON, no m/g/r CTAB Abdom soft, nt No edema L wrist fortino AVF with good thrill R PM with bandage, tunneled cath in same area on R chest wall ICD10 Worksheet Patient Problems: Problems Problem Status Onset Complete heart block Acute Opiate or related narcotic overdose Acute Acute renal insufficiency Acute Pulmonary edema Acute
--- NOTE | 2017-03-20 14:03 | GDS ---
[f rep st] DISCHARGE SUMMARY ALL DIAGNOSES: 1. End-stage renal disease, with acute uremia. 2. Flash pulmonary edema. 3. Acute respiratory failure due to flash pulmonary edema. 4. Heart block with a 6 second pause with no ventricular escape. 5. Kwv-UK-ndlodjjxo myocardial infarction. 6. Renal artery stenosis of unilateral kidney. 7. Hypertensive emergency. 8. Chronic pain on continuous narcotics. 9. Renal cell cancer, status post left nephrectomy. 10. Obesity with a BMI of 34. 11. Subclinical hypothyroidism. HOSPITAL COURSE: This is a 66-year-old female, who had recently had a left brachiocephalic fistula placed. It was maturing, however, she progressed to being significantly uremic with a BUN of 61. S he was admitted for dialysis catheter placement as well as hemodialysis. This was placed by Dr. Kumar burch. Since placement, catheter has been functioning fine and dialysis has been relatively uneventful . Her course was complicated by a 6 second pause caught on telemetry. She had a pacemaker placed. Course also complicated by flash pulmonary edema with an NSTEMI. Her troponin peaked at 1.14. The recommendation is for her to have a cardiac stress test today, however, she is declining this. I to ld her that this is our strong recommendation, this is potentially a diagnosis that could kill her t hat we could do something about with a catheterization. She understands and declines. I have urvashi Mendez, who will set her up with an outpatient stress test at [facility]. We kwesi l do our best to have this scheduled before she is discharged. She will have dialysis tomorrow. She has an outpatient chair set up. BILLING: I spent more than 30 minutes on the day of discharge coordinating care. /[id number]/MODL
--- NOTE | 2017-03-20 16:33 | PDIAF ---
- Diagnosis Diagnosis: renal failure Code Status: Full Code - Medication Management Discharge Medications: Medications to Continue on Transfer traZODone [traZODONE 50MG (*)] 50 mg PO HS 09/24/15 [Last Taken 01/26/17 50mg] Budesonide/Formoterol 160/4.5 [Symbicort 160-4.5 Mcg Inh (*)] 1 puffs IH BID [Last Taken 01/27/17] Escitalopram Oxalate [Lexapro] 20 mg PO HS 12/10/16 [Last Taken 01/26/17 20mg] Gabapentin [Neurontin 300 MG (*)] 600 mg PO TID 12/10/16 [Last Taken 01/26/17 300mg] Ranitidine HCl [Zantac] 150 mg PO HS #0 01/24/17 [Last Taken 01/26/17 150mg] Cholecalciferol Vit D3 [Vitamin D3 (*)] 5,000 units PO DAILY #0 02/20/17 [Last Taken Unknown] Hydrocodone/APAP 5/325 [Kemah 5/325 (*)] 1 - 2 tab PO Q6H PRN #20 tab 02/21/17 [ Last Taken Unknown] Albuterol [Proventil Inhaler HFA (*)] 2 puffs IH Q4H PRN 03/15/17 [Last Taken Unknown] Aspirin [Aspirin 81mg (*)] 81 mg PO DAILY 03/15/17 [Last Taken Unknown] Fluticasone Nasal [Flonase Nasal Bruce] 1 sprays NASAL DAILY PRN 03/15/17 [Last Taken Unknown] Herbals/Supplements -Info Only 1 ea PO DAILY 03/15/17 [Last Taken Unknown] Pravastatin Sodium [Pravachol] 10 mg PO HS 03/15/17 [Last Taken Unknown] Calcium Acetate [Phoslo (*)] 667 mg PO TIDMEAL #90 cap 03/20/17 [Last Taken Unknown] Lisinopril [Zestril 10 mg (*)] 10 mg PO DAILY #30 tab 03/20/17 [Last Taken Unknown] Discharge Medications: Refer to the Discharge Home Medication list for PRN reason. - Orders Services needed: Home Care, Physical Therapy, Occupational Therapy Home Care Face to Face: I certify that this patient was under my care and that I had the required [id number] encounter meeting the encounter requirements on the discharge day. My findings support the fact that the patient is homebound as defined in CMS Chapter 7 Medicare Benefits Manual 30.1.1, The condition of the patient is such that there exists a normal inability to leave home and consequently, leaving home would require a considerable and taxing effort. - Follow Up Care Current Providers and Referrals: Peña Lomax MD [Medical Doctor] - Cedric Lyman MD [Medical Doctor] - (3 weeks) Maurice Barney DO [Primary Care Provider] -
== END 2017-03-20 11:24 | disposition home health service (06) | DRG 242 ==
LOC: FSGY 11:30 → F2W 14:41 → OBSVTOIN 14:41 → F2W 16:23 → F2N 03-17 17:22 → F2W 03-18 12:52
PROVIDERS: ADMIT Surgery; ATTEND Internal Medicine
DX: I13.2 Hypertensive heart and chronic kidney disease with heart failure and with stage 5 chronic kidney disease, or end stage renal disease (principal); N18.6 End stage renal disease; I21.4 Non-ST elevation (NSTEMI) myocardial infarction; I50.31 Acute diastolic (congestive) heart failure; J96.01 Acute respiratory failure with hypoxia; I44.2 Atrioventricular block, complete; I16.1 Hypertensive emergency; J81.0 Acute pulmonary edema; E11.22 Type 2 diabetes mellitus with diabetic chronic kidney disease; I70.1 Atherosclerosis of renal artery; Z85.528 Personal history of other malignant neoplasm of kidney; Z90.5 Acquired absence of kidney; E02 Subclinical iodine-deficiency hypothyroidism; E78.5 Hyperlipidemia, unspecified; G89.29 Other chronic pain; F11.20 Opioid dependence, uncomplicated; E55.9 Vitamin D deficiency, unspecified; Z85.820 Personal history of malignant melanoma of skin; F17.210 Nicotine dependence, cigarettes, uncomplicated; K21.9 Gastro-esophageal reflux disease without esophagitis; E66.9 Obesity, unspecified; Z68.34 Body mass index [BMI] 34.0-34.9, adult; Z99.2 Dependence on renal dialysis
CPT/HCPCS: 86705-90; 97116-GP; 97162-GP; 97165-GO; 97530-GO; 97530-GP; 97535-GO; C1750; C1769; C1785; C1898; G0472; G8978-GP-CI; G8978-GP-CK; G8979-GP-CI; G8980-GP-CI; G8987-GO-CI; G8988-GO-CI; G8989-GO-CI; J0360; J1200; J1642; J1644; J1940; J2250; J2370; J2405; J2704; J2765; J3010; J3370

== ENCOUNTER 2017-03-21 18:59 | Emergency (ER) | payer OTHER, MEDICAID ==
--- NOTE | 2017-03-21 19:31 | EDPHY ---
H & P Stated Complaint: chills fever weak dialysis today recent dialysis and pacer placement Time Seen by Provider: 03/21/17 19:29 HPI/ROS: CHIEF COMPLAINT: Chills, subjective fever, weakness after dialysis HISTORY OF PRESENT ILLNESS: The patient presents to the ED with chills, subjective fever weakness after dialysis earlier today. The patient was recently hospitalized for end-stage renal disease. During that point time she underwent placement of dialysis catheter. She also had a pacemaker which was placed. The patient was discharged home yesterday. She was feeling well. Her symptoms began after dialysis today. She reportedly has had fairly extensive dialysis family reporting 10 L of fluid removal on recent sessions. The patient has had no documented fever. The patient reports she makes very little urine at baseline. She denies any acute urinary symptoms. The patient denies any acute fever, cough or congestion. The patient states that her symptoms have started to improve. REVIEW OF SYSTEMS: A comprehensive 10 point review of systems is otherwise negative aside from elements mentioned in the history of present illness. Source: Patient Exam Limitations: No limitations - Personal History Current Tetanus/Diphtheria Vaccine: Yes Current Tetanus Diphtheria and Acellular Pertussis (TDAP): Yes - Medical/Surgical History Hx Asthma: Yes Hx Chronic Respiratory Disease: Yes Hx Diabetes: No Hx Cardiac Disease: No Hx Renal Disease: Yes Hx Cirrhosis: No Hx Alcoholism: Yes Hx HIV/AIDS: No Hx Splenectomy or Spleen Trauma: No Other PMH: Substance abuse hx, CKD, chronic knee pain, LINNEA/BSO, left nephrectomy for renal ca, left flank hernia, CHRONIC BRONCHITIS - Social History Smoking Status: Heavy smoker - Physical Exam Exam: General Appearance: Alert, no distress Eyes: Pupils equal and round no pallor or injection ENT, Mouth: Mucous membranes moist Respiratory: There are no retractions, lungs are clear to auscultation Cardiovascular: Regular rate and rhythm Gastrointestinal: Abdomen is soft and nontender, no masses, bowel sounds normal Neurological: A&O, normal motor function, normal sensory exam, normal cranial nerves Skin: Dialysis catheter incision clean dry and intact, pacemaker pocket incision clean dry and intact Musculoskeletal: Neck is supple nontender Extremities: symmetrical, full range of motion Constitutional: Initial Vital Signs Temperature (C) 36.6 C 03/21/17 19:07 Heart Rate 74 03/21/17 19:07 Respiratory Rate 18 03/21/17 19:07 Blood Pressure 156/60 H 03/21/17 19:07 O2 Sat (%) 97 03/21/17 19:07 O2 Delivery Mode Room Air Allergies/Adverse Reactions: Cephalosporins Allergy (Intermediate, Verified 01/27/17 14:22) Hives Penicillins Allergy (Intermediate, Verified 01/27/17 14:22) Hives morphine Allergy (Mild, Verified 01/27/17 14:22) stomach issue tetanus toxoid, adsorbed Allergy (Mild, Verified 01/27/17 14:22) localized reaction amlodipine Allergy (Verified 03/19/17 11:20) contrast allergy Allergy (Intermediate, Uncoded 01/27/17 14:22) Hives Home Medications: Medication Instructions Recorded traZODone [traZODONE 50MG (*)] 50 mg PO HS 09/24/15 Budesonide/Formoterol 160/4.5 1 puffs IH BID 12/10/16 [Symbicort 160-4.5 Mcg Inh (*)] Escitalopram Oxalate [Lexapro] 20 mg PO HS 12/10/16 Gabapentin [Neurontin 300 MG (*)] 600 mg PO TID 12/10/16 Ranitidine HCl [Zantac] 150 mg PO HS #0 01/24/17 Cholecalciferol Vit D3 [Vitamin D3 5,000 units PO DAILY #0 02/20/17 (*)] Hydrocodone/APAP 5/325 [[place] 1 - 2 tab PO Q6H PRN #20 tab 02/21/17 5/325 (*)] Albuterol [Proventil Inhaler HFA 2 puffs IH Q4H PRN 03/15/17 (*)] Aspirin [Aspirin 81mg (*)] 81 mg PO DAILY 03/15/17 Pravastatin Sodium [Pravachol] 10 mg PO HS 03/15/17 Calcium Acetate [Phoslo (*)] 667 mg PO TIDMEAL #90 cap 03/20/17 Lisinopril [Zestril 10 mg (*)] 10 mg PO DAILY #30 tab 03/20/17 Medical Decision Making - Diagnostics Imaging Results: Imaging Impressions Chest X-Ray 03/21/17 19:32 Impression: 1. Marked improvement with near complete resolution of diffuse pulmonary edema. Mild findings of congestive heart failure/fluid overload persist. 2. See above report for additional findings. ED Course/Re-evaluation: The patient presents to the ED after an episode of weakness, nausea, subjective fever and chills. The patient is noted to be afebrile in the emergency department. Her chest x-ray demonstrates no evidence of acute disease. She has no evidence of soft tissue infection. The patient did have blood cultures x2 obtained. The patient is unable to provide us a urine sample in the emergency department. She is oliguric at baseline. She has no evidence of an obvious bacterial infection on exam. She is hemodynamically stable. At this point time the patient will be discharged home. She is scheduled to undergo dialysis in 2 days. The patient is comfortable returning to the ED for any weakness, fever, vomiting, acute pain or other concerns. I spoke with Dr. Parikh informed him of the workup. The patient is afebrile. She will not be started on antibiotics. She will have her blood cultures followed. Differential Diagnosis: Differential diagnosis considered includes bacteremia, dehydration, metabolic abnormality, arrhythmia - Data Points Laboratory Results: Laboratory Results 03/21/17 19:45 03/21/17 19:45 03/21/17 03/21/17 19:45 19:45 WBC 12.19 10^3/uL H 10^3/uL (3.80-9.50) RBC 3.35 10^6/uL L 10^6/uL (4.18-5.33) Hgb 10.5 g/dL L g/dL (12.6-16.3) Hct 32.1 % L % (38.0-47.0) MCV 95.8 fL fL (81.5-99.8) MCH 31.3 pg pg (27.9-34.1) MCHC 32.7 g/dL g/dL (32.4-36.7) RDW 14.6 % % (11.5-15.2) Plt Count 156 10^3/uL 10^3/uL (150-400) MPV 12.3 fL H fL (8.7-11.7) Neut % (Auto) 65.5 % % (39.3-74.2) Lymph % (Auto) 14.5 % L % (15.0-45.0) Drew % (Auto) 11.8 % % (4.5-13.0) Eos % (Auto) 6.8 % % (0.6-7.6) Baso % (Auto) 0.7 % % (0.3-1.7) Nucleat RBC Rel Count 0.0 % % (0.0-0.2) Absolute Neuts (auto) 7.97 10^3/uL H 10^3/uL (1.70-6.50) Absolute Lymphs (auto) 1.77 10^3/uL 10^3/uL (1.00-3.00) Absolute Monos (auto) 1.44 10^3/uL H 10^3/uL (0.30-0.80) Absolute Eos (auto) 0.83 10^3/uL H 10^3/uL (0.03-0.40) Absolute Basos (auto) 0.09 10^3/uL 10^3/uL (0.02-0.10) Absolute Nucleated RBC 0.00 10^3/uL 10^3/uL (0-0.01) Immature Gran % 0.7 % % (0.0-1.1) Immature Gran # 0.09 10^3/uL 10^3/uL (0.00-0.10) Sodium 134 mEq/L mEq/L (134-144) Potassium 3.9 mEq/L mEq/L (3.5-5.2) Chloride 100 mEq/L mEq/L (97-110) Carbon Dioxide 21 mEq/l L mEq/l (22-31) Anion Gap 13 mEq/L mEq/L (8-16) BUN 15 mg/dL mg/dL (7-23) Creatinine 2.2 mg/dL H mg/dL (0.6-1.0) Estimated GFR 22 Glucose 95 mg/dL mg/dL (70-100) Calcium 9.3 mg/dL mg/dL (8.5-10.4) Departure - Departure Disposition: Home, Routine, Self-Care Clinical Impression: Generalized weakness Condition: Good Instructions: Weakness (ED) Additional Instructions: 1. Follow up as scheduled with dialysis clinic. 2. Please return to the ED for fever, pain, vomiting, increasing weakness, lightheadedness or other concerns. Referrals: Maurice Barney, [Primary Care Provider] - As per Instructions
--- NOTE | 2017-03-21 19:49 | CPEKG ---
Heart Rate: 75 RR Interval: 800 P-R Interval: 172 QRSD Interval: 90 QT Interval: 420 QTC Interval: 470 P [place]: -6 QRS [place]: 27 T Wave [place]: 43 EKG Severity - ABNORMAL ECG - EKG Impression: SINUS RHYTHM EKG Impression: LEFT VENTRICULAR HYPERTROPHY Electronically Signed By: Peña Loving 21-Mar-2017 20:52:18
[2017-03-21 20:02] LABS: % IMMATURE GRANULYOCYTES 0.7 % (0.0-1.1); ABSOLUTE IMMATURE GRANULOCYTES 0.09 10^3/uL (0.00-0.10); ADD DIFF? NO; ADD MORPH? NO; ADD SCAN? NO; ATYPICAL LYMPHOCYTE FLAG 0 (0-99); FRAGMENT RBC FLAG 0 (0-99); HEMATOCRIT 32.1 % (38.0-47.0); HEMOGLOBIN 10.5 g/dL (12.6-16.3); LEFT SHIFT FLG 0 (0-99); LIPEMIA HEMOLYSIS FLAG 80 (0-99); MEAN CELL HEMOGLOBIN 31.3 pg (27.9-34.1); MEAN CELL HEMOGLOBIN CONCENTR. 32.7 g/dL (32.4-36.7); MEAN CELL VOLUME 95.8 fL (81.5-99.8); MEAN PLATELET VOLUME 12.3 fL (8.7-11.7); PLATELET CLUMPS FLAG 0 (0-99); PLATELET COUNT 156 10^3/uL (150-400); RED BLOOD CELL COUNT 3.35 10^6/uL (4.18-5.33); RED CELL DISTRIBUTION WIDTH 14.6 % (11.5-15.2)
[2017-03-21 20:11] LABS: ANION GAP 13 mEq/L (8-16); CALCIUM 9.3 mg/dL (8.5-10.4); CARBON DIOXIDE 21 mEq/l (22-31); CHLORIDE 100 mEq/L (97-110); CREATININE 2.2 mg/dL (0.6-1.0); GLOMERULAR FILTRATION RATE 22; GLUCOSE 95 mg/dL (70-100); POTASSIUM 3.9 mEq/L (3.5-5.2); SODIUM 134 mEq/L (134-144)
[2017-03-21] MEDS: LIDOCAINE 5% 1 EA PATCH TD SCH ×2 (20:52→21:45)
[2017-03-21] MEDS ORDERED: PATCH REMOVAL 1 EA PATCH TD SCH (21:00)
[2017-03-21] MEDS ORDERED: LIDOCAINE 5% 1 EA PATCH TD SCH (21:30)
[2017-03-21 21:56] VITALS: BP 128/59; PULSE 59; RESP 16; TEMP 98.2; O2SAT 95
[2017-03-22] MEDS ORDERED: PATCH REMOVAL 1 EA PATCH TD SCH (21:00)
== END 2017-03-21 21:56 | disposition home or self-care (01) ==
DX: R53.1 Weakness (principal); J45.909 Unspecified asthma, uncomplicated; F17.200 Nicotine dependence, unspecified, uncomplicated; Z79.82 Long term (current) use of aspirin; Z85.528 Personal history of other malignant neoplasm of kidney

== ENCOUNTER 2017-04-29 02:39 | Inpatient (IN) | payer OTHER, MEDICAID ==
[2017-04-29] MEDS ORDERED: IPRATROPIUM/ALBUTEROL 3 ML DEYVIAL IH ONE (02:49)
--- NOTE | 2017-04-29 02:52 | EDPHY ---
H & P HPI/ROS: HPI CHIEF COMPLAINT: Shortness of breath, generalized weakness HISTORY OF PRESENT ILLNESS: This patient is 66-year-old female significant past medical history for end-stage renal disease typically gets dialysis Monday. She tells me last time she got dialysis was on Monday. She tells me she skipped . She distally tells me she had 1 hour dialysis today(MONDAY). However had ongoing back pain and did not complete dialysis. She now presents emergency room shortness of breath. She called 911 as she got up this evening to use the bathroom and got short of breath. She denies any chest pain. EMS found her to have a room air saturation of 84%. With wheezing. They gave her DuoNeb breathing treatment EN route and brought her to the emergency room. Patient additionally tells me she makes urine. Upon arrival to the emergency room the patient does complain of shortness of breath however improved. She is not in any acute distress at this time. Denies chest pain. Past Medical History: End-stage renal disease, flash pulmonary edema, hypertensive emergency, non STEMI, hypertension, renal cell carcinoma, COPD not on oxygen Past Surgical History: Right chest dialysis catheter, right chest pacemaker Social History: Denies daily use of alcohol or drugs, does smoke tobacco, not on oxygen Family History: Noncontributory ROS REVIEW OF SYSTEMS: A comprehensive 10 point review of systems is otherwise negative aside from elements mentioned in the history of present illness. Exam Constitutional appears generalized ill triage nursing summary reviewed, vital signs reviewed, awake/alert. Eyes normal conjunctivae and sclera, EOMI, PERRLA. HENT normal inspection, atraumatic, moist mucus membranes, no epistaxis, neck supple/ no meningismus, no raccoon eyes. Respiratory clear to auscultation bilaterally, normal breath sounds, no respiratory distress, no wheezing. Cardiovascular rate normal, regular rhythm, no murmur, no edema, distal pulses normal. Gastrointestinal soft, non-tender, no rebound, no guarding, normal bowel sounds, no distension, no pulsatile mass. Genitourinary no CVA tenderness. Musculoskeletal no midline vertebral tenderness, full range of motion, no calf swelling, no tenderness of extremities, no meningismus, good pulses, neurovascularly intact. Skin pink, warm, & dry, no rash, skin atraumatic. Neurologic awake, alert and oriented x 3, AAOx3, moves all 4 extremities equally, motor intact, sensory intact, CN II-XII intact, normal cerebellar, normal vision, normal speech. Psychiatric normal mood/affect. Heme/Lymph/Immune no lymphadenopathy. Differential Diagnosis: Includes but is not limited to in a particular order fluid overload, volume overload, flash pulmonary edema, pulmonary edema, pneumonia, CHF, non STEMI, COPD exacerbation Medical Decision Making: Plan for this patient chest x-ray, EKG, labs, supplemental oxygen, DuoNeb breathing treatment, mainly Lasix. Re-evaluation: 0406AM: Patient feeling better after DuoNeb breathing treatment. I have ordered this patient 40 mg IV Lasix as she does make urine still. Her chest x- ray reviewed. A right chest catheter in place. Cardiomegaly present. Bilateral pulmonary edema present. Cannot rule out underlying pneumonia. 0406AM: Additionally this patient is now febrile 38.3. Will obtain blood cultures and lactic acid. She is not hypotensive does not need IV fluids as I believe she is volume overload at this time. I have ordered her IV vancomycin. Her right chest catheter does not look infected on exam. 0435AM: Chest x-ray reviewed shows cardiomegaly and bilateral pulmonary edema. Concerning for volume overload. Pacemaker right chest. EKG interpretation by me on record in [facility] system. Impression time of EKG 3:03 a.m., sinus tachycardia rate of 100 LVH present. Q-waves V1 V2. Subtle ST depression V3 V4 V5. Motion artifact noted. Patient additionally tells me she is allergic to IV vancomycin, cephalosporin penicillins. I have ordered her IV Levaquin. Source: Patient, EMS - Medical/Surgical History Hx Asthma: Yes Hx Chronic Respiratory Disease: Yes Hx Diabetes: No Hx Cardiac Disease: No Hx Renal Disease: Yes Hx Cirrhosis: No Hx Alcoholism: Yes Hx HIV/AIDS: No Hx Splenectomy or Spleen Trauma: No Other PMH: Substance abuse hx, CKD, chronic knee pain, LINNEA/BSO, left nephrectomy for renal ca, left flank hernia, CHRONIC BRONCHITIS - Social History Smoking Status: Heavy smoker Constitutional: Initial Vital Signs Temperature (C) 37.3 C 04/29/17 02:59 Heart Rate 103 H 04/29/17 02:59 Respiratory Rate 22 H 04/29/17 02:59 Blood Pressure 170/83 H 04/29/17 02:59 O2 Sat (%) 95 04/29/17 02:59 O2 Delivery Mode Nasal Cannula Allergies/Adverse Reactions: Cephalosporins Allergy (Intermediate, Verified 01/27/17 14:22) Hives Penicillins Allergy (Intermediate, Verified 01/27/17 14:22) Hives morphine Allergy (Mild, Verified 01/27/17 14:22) stomach issue tetanus toxoid, adsorbed Allergy (Mild, Verified 01/27/17 14:22) localized reaction amlodipine Allergy (Verified 03/19/17 11:20) contrast allergy Allergy (Intermediate, Uncoded 01/27/17 14:22) Hives Home Medications: Medication Instructions Recorded traZODone [traZODONE 50MG (*)] 50 mg PO HS 09/24/15 Budesonide/Formoterol 160/4.5 1 puffs IH BID 12/10/16 [Symbicort 160-4.5 Mcg Inh (*)] Escitalopram Oxalate [Lexapro] 20 mg PO HS 12/10/16 Gabapentin [Neurontin 300 MG (*)] 300 mg PO HS 12/10/16 Ranitidine HCl [Zantac] 150 mg PO HS #0 01/24/17 Cholecalciferol Vit D3 [Vitamin D3 5,000 units PO DAILY #0 02/20/17 (*)] Albuterol [Proventil Inhaler HFA 2 puffs IH Q4H PRN 03/15/17 (*)] Lisinopril [Zestril 10 mg (*)] 10 mg PO DAILY #30 tab 03/20/17 Aspirin EC [Aspirin EC 81 mg (*)] 81 mg PO DAILY 04/29/17 Calcium Acetate [Phoslo (*)] 667 mg PO TUTHSA 04/29/17 HYDROcodone/APAP 10/325 [[place] 1 tab PO TID 04/29/17 10/325 (*)] Medical Decision Making - Data Points Laboratory Results: Laboratory Results 04/29/17 04:00 04/29/17 04:00 Medications Given: Hydrocodone Bitart/Acetaminophen ([place] 10/325) 1 tab PO TID CHLOE Stop: 05/09/17 21:59 Last Admin: 04/29/17 21:18 Dose: 1 tab Budesonide/Formoterol Fumarate (Symbicort 160-4.5 Mcg Inhaler) 1 puffs IH BID CHLOE Stop: 10/26/17 20:59 Last Admin: 04/29/17 21:10 Dose: Not Given Escitalopram Oxalate (Lexapro) 20 mg PO DAILY CHLOE Stop: 10/26/17 20:59 Last Admin: 04/29/17 21:18 Dose: 20 mg Gabapentin (Neurontin) 300 mg PO HS CHLOE Stop: 10/26/17 20:59 Last Admin: 04/29/17 21:18 Dose: 300 mg Heparin Sodium (Porcine) (Heparin Sc Injection) 5,000 unit SC Q8HRS CHLOE Stop: 10/26/17 13:59 Last Admin: 04/29/17 18:44 Dose: Not Given Oxycodone HCl (Oxycodone Ir) 5 - 10 mg PO Q3HRS PRN PRN Reason: Pain, Severe Able to Take PO Stop: 05/09/17 07:17 Last Admin: 04/29/17 18:43 Dose: 10 mg Trazodone HCl (Trazodone) 50 mg PO [facility] Stop: 10/26/17 20:59 Last Admin: 04/29/17 21:18 Dose: 50 mg Discontinued Medications Acetaminophen (Tylenol) 1,000 mg PO ONCE ONE Stop: 04/29/17 06:24 Last Admin: 04/29/17 06:33 Dose: 1,000 mg Albuterol/Ipratropium (Duoneb) 3 ml IH EDNOW ONE Stop: 04/29/17 02:50 Last Admin: 04/29/17 04:07 Dose: 3 ml Furosemide (Lasix Injection) 40 mg IVP EDNOW ONE Stop: 04/29/17 04:04 Last Admin: 04/29/17 04:44 Dose: 40 mg Vancomycin/Sodium Chloride (Vancomycin 1 Gm (Premix)) 250 mls @ 250 mls/hr IV EDNOW ONE PRN Reason: Protocol Stop: 04/29/17 05:04 Last Admin: 04/29/17 04:57 Dose: Not Given Levofloxacin/Dextrose (Levaquin 750 Mg (Premix)) 150 mls @ 100 mls/hr IV EDNOW ONE PRN Reason: Protocol Stop: 04/29/17 06:21 Last Admin: 04/29/17 05:13 Dose: 150 mls Vancomycin/Sodium Chloride (Vancomycin 1 Gm (Premix)) 250 mls @ 250 mls/hr IV ONCE ONE Stop: 04/29/17 17:29 Last Admin: 04/29/17 18:44 Dose: Not Given Departure - Departure Disposition: [facility] Acute Clinical Impression: Generalized weakness Fever Qualifiers: Fever type: unspecified Qualified Code(s): R50.9 - Fever, unspecified Pulmonary edema Qualifiers: Chronicity: acute Qualified Code(s): J81.0 - Acute pulmonary edema Volume overload Qualifiers: Hypervolemia type: other Qualified Code(s): E87.79 - Other fluid overload Condition: Fair
[2017-04-29] MEDS ORDERED: FUROSEMIDE 40 MG/4 ML VIAL IVP ONE (04:03)
[2017-04-29] MEDS ORDERED: VANCOMYCIN HCL/NORMAL SALINE 250 ML IV ONE ×2 (04:05→16:30)
[2017-04-29 04:22] LABS: % IMMATURE GRANULYOCYTES 0.6 % (0.0-1.1); ABSOLUTE IMMATURE GRANULOCYTES 0.07 10^3/uL (0.00-0.10); ADD DIFF? NO; ADD MORPH? NO; ADD SCAN? NO; ATYPICAL LYMPHOCYTE FLAG 0 (0-99); FRAGMENT RBC FLAG 0 (0-99); HEMATOCRIT 31.7 % (38.0-47.0); HEMOGLOBIN 10.3 g/dL (12.6-16.3); LEFT SHIFT FLG 0 (0-99); LIPEMIA HEMOLYSIS FLAG 80 (0-99); MEAN CELL HEMOGLOBIN 32.4 pg (27.9-34.1); MEAN CELL HEMOGLOBIN CONCENTR. 32.5 g/dL (32.4-36.7); MEAN CELL VOLUME 99.7 fL (81.5-99.8); MEAN PLATELET VOLUME 10.9 fL (8.7-11.7); PLATELET CLUMPS FLAG 0 (0-99); PLATELET COUNT 170 10^3/uL (150-400); RED BLOOD CELL COUNT 3.18 10^6/uL (4.18-5.33)
[2017-04-29 04:29] LABS: INR 1.08 (0.83-1.16); PROTIME(PATIENT) 13.9 SEC (12.0-15.0)
[2017-04-29 04:30] LABS: APTT 33.8 SEC (23.0-38.0)
[2017-04-29 04:40] LABS: ALANINE AMINOTRANSFERASE 35 IU/L (9-52); ALBUMIN 3.4 g/dL (3.5-5.0); ALKALINE PHOSPHATASE 110 IU/L (38-126); ANION GAP 13 mEq/L (8-16); ASPARTATE AMINOTRANSFERASE 24 IU/L (14-46); BILIRUBIN,TOTAL 0.6 mg/dL (0.1-1.4); BILIRUBIN-CONJUGATED 0.6 mg/dL (0.0-0.5); CALCIUM 9.8 mg/dL (8.5-10.4); CARBON DIOXIDE 22 mEq/l (22-31); CHLORIDE 98 mEq/L (97-110); CREATININE 3.2 mg/dL (0.6-1.0); GLOMERULAR FILTRATION RATE 14; GLUCOSE 88 mg/dL (70-100); MAGNESIUM 1.8 mg/dL (1.6-2.3); POTASSIUM 4.2 mEq/L (3.5-5.2); SODIUM 133 mEq/L (134-144); TOTAL PROTEIN 6.2 g/dL (6.3-8.2)
--- NOTE | 2017-04-29 04:48 | CPEKG ---
Heart Rate: 100 RR Interval: 600 P-R Interval: 180 QRSD Interval: 88 QT Interval: 344 QTC Interval: 444 P [place]: 46 QRS [place]: 47 T Wave [place]: 29 EKG Severity - ABNORMAL ECG - EKG Impression: SINUS TACHYCARDIA EKG Impression: CONSIDER LEFT VENTRICULAR HYPERTROPHY Electronically Signed By: Say Ulloa 29-Apr-2017 07:16:38
[2017-04-29 04:51] LABS: CREATINE KINASE-MB FRACTION 1.32 ng/mL (0.00-3.19); TROPONIN I 0.025 ng/mL (0.000-0.034)
[2017-04-29] MEDS ORDERED: ACETAMINOPHEN 500 MG TAB PO ONE (06:23)
[2017-04-29] MEDS ORDERED: ACETAMINOPHEN 500 MG TAB ONE (06:32)
[2017-04-29] MEDS ORDERED: ACETAMINOPHEN 325 MG TAB PO PRN (07:18)
[2017-04-29] MEDS ORDERED: ALBUTEROL 3 ML DEYVIAL IH PRN (07:18)
[2017-04-29] MEDS ORDERED: ONDANSETRON 4 MG/2 ML VIAL IVP PRN (07:18)
[2017-04-29] MEDS ORDERED: ONDANSETRON DISINTEGRATING 4 MG TAB PO PRN (07:18)
--- NOTE | 2017-04-29 07:52 | PDGENHP ---
History and Physical - Chief Complaint Shortness of Breath - History of Present Illness 66 yo F w/ COPD and ESRD presents with shortness of breath. Patient describes shortness of breath for one day prior to presentation. Prior to this, she had a new cough productive of green sputum for about 2 weeks. Additionally, she reports a few days of sore throat and rhinorrhea. She has is compliant with her Symbicort and stopped smoking 2 weeks ago. Prior to this she smoked nearly a pack per day for many years. She was not able to tolerate a full session of HD during her last session due to back pain, which she states is chronic but somewhat worse than usual. She was noted to be febrile in the ED on multiple occasions. History Information - Allergies/Home Medication List Allergies/Adverse Reactions: Cephalosporins Allergy (Intermediate, Verified 01/27/17 14:22) Hives Penicillins Allergy (Intermediate, Verified 01/27/17 14:22) Hives morphine Allergy (Mild, Verified 01/27/17 14:22) stomach issue tetanus toxoid, adsorbed Allergy (Mild, Verified 01/27/17 14:22) localized reaction amlodipine Allergy (Verified 03/19/17 11:20) contrast allergy Allergy (Intermediate, Uncoded 01/27/17 14:22) Hives Home Medications: traZODone [traZODONE 50MG (*)] 50 mg PO HS 09/24/15 [Last Taken 01/26/17 50mg] Budesonide/Formoterol 160/4.5 [Symbicort 160-4.5 Mcg Inh (*)] 1 puffs IH BID [Last Taken 01/27/17] Escitalopram Oxalate [Lexapro] 20 mg PO HS 12/10/16 [Last Taken 01/26/17 20mg] Gabapentin [Neurontin 300 MG (*)] 600 mg PO TID 12/10/16 [Last Taken 01/26/17 300mg] Ranitidine HCl [Zantac] 150 mg PO HS #0 01/24/17 [Last Taken 01/26/17 150mg] Cholecalciferol Vit D3 [Vitamin D3 (*)] 5,000 units PO DAILY #0 02/20/17 [Last Taken Unknown] Albuterol [Proventil Inhaler HFA (*)] 2 puffs IH Q4H PRN 03/15/17 [Last Taken Unknown] Aspirin [Aspirin 81mg (*)] 81 mg PO DAILY 03/15/17 [Last Taken Unknown] Pravastatin Sodium [Pravachol] 10 mg PO HS 03/15/17 [Last Taken Unknown] I have personally reviewed and updated: family history, medical history - Past Medical History COPD, hypertension, peripheral artery disease - Surgical History Reports: vascular surgery - Family History Positive for: diabetes type II - Social History Smoking Status: Heavy smoker Review of Systems ROS: 10pt was reviewed & negative except for what was stated in HPI & below Physical Exam Temp Pulse Resp BP Pulse Ox 38.3 C 101 H 19 136/65 H 97 04/29/17 06:00 04/29/17 06:00 04/29/17 06:00 04/29/17 06:00 04/29/17 06:00 Constitutional: appears nourished, uncomfortable Eyes: PERRL, EOMI Ears, Nose, Mouth, Throat: moist mucous membranes, no oral mucosal ulcers Cardiovascular: systolic murmur (2/6 @ LUSB), tachycardia, edema (1+ b/l OLIVERIO) Respiratory: reduced air movement, inspiratory crackles, No expiratory wheeze Gastrointestinal: normoactive bowel sounds, soft, non-tender abdomen Skin: warm Neurologic: AAOx3, CN II-XII Intact Psychiatric: interacting appropriately, not anxious Lab Data & Imaging Review 04/29/17 04:00 04/29/17 04:00 WBC 11.02 10^3/uL (3.80-9.50) H 04/29/17 04:00 RBC 3.18 10^6/uL (4.18-5.33) L 04/29/17 04:00 Hgb 10.3 g/dL (12.6-16.3) L 04/29/17 04:00 Hct 31.7 % (38.0-47.0) L 04/29/17 04:00 MCV 99.7 fL (81.5-99.8) 04/29/17 04:00 MCH 32.4 pg (27.9-34.1) 04/29/17 04:00 MCHC 32.5 g/dL (32.4-36.7) 04/29/17 04:00 RDW 16.0 % (11.5-15.2) H 04/29/17 04:00 Plt Count 170 10^3/uL (150-400) 04/29/17 04:00 MPV 10.9 fL (8.7-11.7) 04/29/17 04:00 Neut % (Auto) 85.4 % (39.3-74.2) H 04/29/17 04:00 Lymph % (Auto) 4.7 % (15.0-45.0) L 04/29/17 04:00 [place] % (Auto) 7.4 % (4.5-13.0) 04/29/17 04:00 Eos % (Auto) 1.0 % (0.6-7.6) 04/29/17 04:00 Baso % (Auto) 0.9 % (0.3-1.7) 04/29/17 04:00 Nucleat RBC Rel Count 0.0 % (0.0-0.2) 04/29/17 04:00 Absolute Neuts (auto) 9.40 10^3/uL (1.70-6.50) H 04/29/17 04:00 Absolute Lymphs (auto) 0.52 10^3/uL (1.00-3.00) L 04/29/17 04:00 Absolute Monos (auto) 0.82 10^3/uL (0.30-0.80) H 04/29/17 04:00 Absolute Eos (auto) 0.11 10^3/uL (0.03-0.40) 04/29/17 04:00 Absolute Basos (auto) 0.10 10^3/uL (0.02-0.10) 04/29/17 04:00 Absolute Nucleated RBC 0.00 10^3/uL (0-0.01) 04/29/17 04:00 Immature Gran % 0.6 % (0.0-1.1) 04/29/17 04:00 Immature Gran # 0.07 10^3/uL (0.00-0.10) 04/29/17 04:00 PT 13.9 SEC (12.0-15.0) 04/29/17 04:00 INR 1.08 (0.83-1.16) 04/29/17 04:00 APTT 33.8 SEC (23.0-38.0) 04/29/17 04:00 VBG Lactic Acid 1.5 mmol/L (0.7-2.1) 04/29/17 04:00 Sodium 133 mEq/L (134-144) L 04/29/17 04:00 Potassium 4.2 mEq/L (3.5-5.2) 04/29/17 04:00 Chloride 98 mEq/L (97-110) 04/29/17 04:00 Carbon Dioxide 22 mEq/l (22-31) 04/29/17 04:00 Anion Gap 13 mEq/L (8-16) 04/29/17 04:00 BUN 16 mg/dL (7-23) 04/29/17 04:00 Creatinine 3.2 mg/dL (0.6-1.0) H 04/29/17 04:00 Estimated GFR 14 04/29/17 04:00 Glucose 88 mg/dL (70-100) 04/29/17 04:00 Calcium 9.8 mg/dL (8.5-10.4) 04/29/17 04:00 Magnesium 1.8 mg/dL (1.6-2.3) 04/29/17 04:00 Total Bilirubin 0.6 mg/dL (0.1-1.4) 04/29/17 04:00 Conjugated Bilirubin 0.6 mg/dL (0.0-0.5) H 04/29/17 04:00 Unconjugated Bilirubin 0.0 mg/dL (0.0-1.1) 04/29/17 04:00 AST 24 IU/L (14-46) 04/29/17 04:00 ALT 35 IU/L (9-52) 04/29/17 04:00 Alkaline Phosphatase 110 IU/L (38-126) 04/29/17 04:00 Creatine Kinase 57 IU/L (0-156) 04/29/17 04:00 CK-MB (CK-2) Fraction 1.32 ng/mL (0.00-3.19) 04/29/17 04:00 Troponin I 0.025 ng/mL (0.000-0.034) 04/29/17 04:00 NT-Pro-B Natriuret Pep 46095 pg/mL (0-125) H 04/29/17 04:00 Total Protein 6.2 g/dL (6.3-8.2) L 04/29/17 04:00 Albumin 3.4 g/dL (3.5-5.0) L 04/29/17 04:00 Lipase 52 IU/L (23-300) 04/29/17 04:00 Visualized and Interpreted Chest x-ray results: Yes Chest X-Ray results: other (Diffuse vascular congestion c/w pulmonary edema) Visualized and Interpreted EKG results: Yes EKG Interpretation: Positive for: other (Sinus tachycardia) Assessment & Plan Assessment: 66 yo F w/ COPD and ESRD presenting with sepsis 2/2 likely viral pulmonary infection and mild volume overload. Plan: 1. Sepsis - 3/4 SIRS on admission(T, HR, RR). Suspect pulmonary source; perhaps viral noting sore throat and rhinorrhea. CXR with vascular congestion but no clear infiltrate. - Will treat for HCAP w/ Levofloxacin (cephalosporin allergy) noting high risk patient w/ existing pulmonary disease - Blood cultures - Will send PCT noting suspicion for viral illness 2. Volume overload - Vascular congestion on CXR and lower extremity edema. Likely related to incomplete HD session prior to admission and sepsis physiology. - S/p lasix in ED with some urine output - Consult renal for HD today 3. AHRF - Mild, oxygenating well with 2L via NC. Likely related to volume overload and pulmonary infection. No clear evidence of COPD exacerbation currently. - Antibiotics, HD 4. COPD - No clear evidence of acute exacerbation. Would add steroids if clinically worsens. Continue home meds, albuterol PRN. 5. ESRD - Usual //Sat HD; incomplete session on [facility] due to back pain. Diet - Regular Code - Full Ppx - SQH Dispo - Admit to inpatient noting sepsis and volume overload.
[2017-04-29] MEDS ORDERED: ENOXAPARIN 40 MG/0.4 ML SYR SC SCH (09:00)
--- NOTE | 2017-04-29 14:22 | SOAPPROG ---
SOAP Progress Note Assessment/Plan: Assessment: 1)ESRD- MADDY Tolbert TTS -HD today per usual schedule- goal UF 2kg -will need IR to remove TDC- she does have AVF in place but I am concerned it may be too small to use at this point. Will need to await ID input and negative blood Cx before new TDC (otherwise may need temp HD cath for next HD)-- should have strict renal diet in meantime as unclear when we will be safely able to get new access 2)Bacteremia -blood Cx drawn at outpt HD unit with both bottles GPC (Drawn due to concern for exit site infection). Received dose vanco then. 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 She is using RIJ TDC Qb 350, 3K/2.5Ca bath, goal UF 2kg. Admitted with cough, fevers, back pain. I spoke to outpt HD unit and blood Cx drawn with GPC in both bottles (Drawn due to drainage at exit site). Given 1g Vanco then. She had AVF placed several weeks ago, has not been used yet. She reports back pain has been chronic issue, not acutely worse. Came to ER as was having significant cough and had similar symptoms prior to last serious illness. Objective: Vital Signs Temp Pulse Resp BP Pulse Ox 37.5 C 84 18 135/79 H 99 04/29/17 09:32 04/29/17 09:32 04/29/17 09:32 04/29/17 09:32 04/29/17 09:32 PT 13.9 SEC (12.0-15.0) 04/29/17 04:00 INR 1.08 (0.83-1.16) 04/29/17 04:00 Physical Exam - Physical Exam General Appearance: no apparent distress, other (chronically ill, on O2 by NC) EENT: other (mmm) Neck: other (RIJ TDC) Respiratory: decreased breath sounds (bases bilat) Cardiac/Chest: regular rate, rhythm, other (II/ Systolic murmur) Abdomen: normal bowel sounds, non-tender, soft Extremities: pelvis stable, other (LUE fortino AVF +thrill/bruit but small) Neuro/Psych: alert, oriented x 3 ICD10 Worksheet Patient Problems: Problems Problem Status Onset Fever Acute Generalized weakness Acute Pulmonary edema Acute Volume overload Acute Acute renal insufficiency Acute Complete heart block Acute Opiate or related narcotic overdose Acute Pulmonary edema Acute
[2017-04-29] MEDS ORDERED: ALBUTEROL 60 PUFFS/8 GM MDI IH PRN (16:01)
--- NOTE | 2017-04-29 16:08 | HOSPPROG ---
Hospitalist Progress Note Assessment/Plan: DIAGNOSES: -gram-positive bacteremia with 4/4 blood culture bottles from dialysis unit growing gram-positive cocci; suspect dialysis access catheter is the source as there is erythema and purulence -sepsis -acute volume overload from inadequate dialysis -end-stage renal disease on chronic hemodialysis -I do not think she has any pneumonia based on her chest x-ray and the other information we have detailing cause of her fevers however will check her respiratory pathogen panel PLANS: -continue IV vancomycin, can stop Levaquin for now -ongoing discussions with Interventional Radiology about the placement of her dialysis catheter -will need ongoing dialysis here with fluid removal -continue usual treatments for COPD and supplement as needed -as she has back pain will do MRI to be sure no abscess/osteo -echo ordered to eval for vegetation -ID consult ordered -will follow cx's from dialysis unit in [facility], and will order another surveillance set here in I have discussed the case in detail today with Dr Cardona SUBJECTIVE: still very tired, weak, and with back pain no sob not coughing OBJECTIVE Vitals reviewed: Highest temperature so far today 38.3, blood pressures have been good Chemical Dependency Therapist, my review: Sinus rhythm Exam: alert oriented looks very tired and weak skin warm dry color ok resps not labored lungs clear BSs heart regular abd soft nondistended nontender, bowel sounds present limbs some erythema and purulence at catheter site iv site ok Objective: Vital Signs Temp Pulse Resp BP Pulse Ox 37.5 C 84 18 135/79 H 99 04/29/17 09:32 04/29/17 09:32 04/29/17 09:32 04/29/17 09:32 04/29/17 09:32 PT 13.9 SEC (12.0-15.0) 04/29/17 04:00 INR 1.08 (0.83-1.16) 04/29/17 04:00 ICD10 Worksheet Patient Problems: Problems Problem Status Onset Fever Acute Generalized weakness Acute Pulmonary edema Acute Volume overload Acute Acute renal insufficiency Acute Complete heart block Acute Opiate or related narcotic overdose Acute Pulmonary edema Acute
[2017-04-29] MEDS ORDERED: ALBUTEROL 200 PUFFS/18 GM MDI IH PRN (16:13)
[2017-04-29] MEDS ORDERED: fentaNYL 100 MCG/2 ML INJ ONE (16:52)
[2017-04-29] MEDS ORDERED: LIDOCAINE 1% 300 MG/30 ML SDV ONE (16:54)
[2017-04-29] MEDS: oxyCODONE IR 5 MG TAB PO PRN ×2 (18:43→22:12)
[2017-04-29] MEDS: HEPARIN 5,000 UNIT/0.5 ML SYR SC SCH ×2 (18:44→22:12)
[2017-04-29] MEDS ORDERED: HEPARIN 50,000 UNIT/10 ML VIAL ONE (20:00)
[2017-04-29] MEDS: BUDESONIDE/FORMOTEROL 160/4.5 60 PUFFS/MDI IH SCH (21:10)
[2017-04-29] MEDS: traZODone 100 MG TAB PO SCH (21:18)
[2017-04-29] MEDS: ESCITALOPRAM OXALATE 10 MG TAB PO SCH (21:18)
[2017-04-29] MEDS: GABAPENTIN 300 MG CAP PO SCH (21:18)
[2017-04-29] MEDS: HYDROCODONE/APAP 10/325 TAB PO SCH (21:18)
[2017-04-29] MEDS: Ranitidine Hcl [Zantac] 150 MG PO SCH (23:10)
[2017-04-30] MEDS: oxyCODONE IR 5 MG TAB PO PRN ×5 (02:07→20:49)
[2017-04-30] MEDS: diphenhydrAMINE 25 MG CAP PO PRN (03:42)
[2017-04-30] MEDS ORDERED: VANCOMYCIN HCL/NORMAL SALINE 250 ML IV ONE (04:00)
[2017-04-30 05:08] LABS: % IMMATURE GRANULYOCYTES 0.5 % (0.0-1.1); ABSOLUTE IMMATURE GRANULOCYTES 0.04 10^3/uL (0.00-0.10); ADD DIFF? NO; ADD MORPH? NO; ADD SCAN? NO; ATYPICAL LYMPHOCYTE FLAG 0 (0-99); FRAGMENT RBC FLAG 0 (0-99); HEMATOCRIT 30.6 % (38.0-47.0); HEMOGLOBIN 9.3 g/dL (12.6-16.3); LEFT SHIFT FLG 0 (0-99); LIPEMIA HEMOLYSIS FLAG 80 (0-99); MEAN CELL HEMOGLOBIN 31.2 pg (27.9-34.1); MEAN CELL HEMOGLOBIN CONCENTR. 30.4 g/dL (32.4-36.7); MEAN CELL VOLUME 102.7 fL (81.5-99.8); PLATELET CLUMPS FLAG 20 (0-99); PLATELET COUNT 142 10^3/uL (150-400); RED BLOOD CELL COUNT 2.98 10^6/uL (4.18-5.33); RED CELL DISTRIBUTION WIDTH 16.3 % (11.5-15.2)
[2017-04-30 05:54] LABS: CALCIUM 9.7 mg/dL (8.5-10.4); CARBON DIOXIDE 21 mEq/l (22-31); CHLORIDE 100 mEq/L (97-110); CREATININE 2.6 mg/dL (0.6-1.0); GLOMERULAR FILTRATION RATE 18; GLUCOSE 75 mg/dL (70-100); MAGNESIUM 2.1 mg/dL (1.6-2.3); SODIUM 132 mEq/L (134-144)
[2017-04-30 06:26] LABS: ANION GAP 11 mEq/L (8-16); POTASSIUM 4.1 mEq/L (3.5-5.2)
[2017-04-30] MEDS: HEPARIN 5,000 UNIT/0.5 ML SYR SC SCH ×3 (06:49→20:46)
--- NOTE | 2017-04-30 07:39 | SOAPPROG ---
SOAP Progress Note Assessment/Plan: Assessment: 1)ESRD- MADDY Tolbert TTS -Last HD Sat -IR removed TDC Monday after HD-- she does have AVF in place but I am concerned it may be too small to use at this point- I will ask knife setter to assess tomorrow. Will need to await ID input and negative blood Cx before new TDC (otherwise may need temp HD cath for next HD)-- should have strict renal diet in meantime as unclear when we will be safely able to get new access. I reviewed this with her today. 2)Bacteremia, Coag neg staph -blood Cx drawn at outpt HD unit with both bottles GPC (Drawn due to concern for exit site infection). Received dose vanco then. -blood Cx here 04/29 with Coag neg staph -concern for line infection. TTE with possible lesion aortic valve (vs calcification)- needs JADEN, this would also help evaluate pacemaker leads as well. Also getting imaging spine given back pain. -I discussed with inpatient pharmacy regarding Vanco dosing -Appreciate ID input 3)Anemia of CKD -Hb at goal, will review outpt Epo dosing with unit 4)MBD of CKD -renal diet with po 5)COPD/sob -likely has volume component as well and will UF with HD- improved today 6)Chronic back pain 7)s/p pacemaker placement I discussed with Dr. 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 No fevers overnight. TTE showed possible lesion aortic valve- I reviewed this with her. TDC removed. No SOB, n/v. Objective: Vital Signs Temp Pulse Resp BP Pulse Ox 36.5 C 72 12 145/71 H 100 04/30/17 07:28 04/30/17 07:28 04/30/17 07:28 04/30/17 07:28 04/30/17 07:28 Laboratory Results 04/30/17 04:57 04/30/17 04:57 04/29/17 04/30/17 05/01/17 05:59 05:59 05:59 Intake Total 520 Output Total 0 Balance 520 PT 13.9 SEC (12.0-15.0) 04/29/17 04:00 INR 1.08 (0.83-1.16) 04/29/17 04:00 Physical Exam - Physical Exam General Appearance: alert, no apparent distress EENT: other (mmm) Neck: other (TDC out, +pacemaker) Respiratory: lungs clear Cardiac/Chest: regular rate, rhythm, systolic murmur (ii/vi soft systolic murmur ), other Abdomen: normal bowel sounds, non-tender, soft Skin: warm/dry Extremities: other (AVF +thrill/bruit but small, no edema) Neuro/Psych: alert, oriented x 3 ICD10 Worksheet Patient Problems: Problems Problem Status Onset Fever Acute Generalized weakness Acute Pulmonary edema Acute Volume overload Acute Acute renal insufficiency Acute Complete heart block Acute Opiate or related narcotic overdose Acute Pulmonary edema Acute
[2017-04-30] MEDS: CHOLECALCIFEROL VIT D3 1,000 UNITS TAB PO SCH (08:06)
[2017-04-30] MEDS: LISINOPRIL 10 MG TAB PO SCH (08:07)
[2017-04-30] MEDS: ASPIRIN EC 81 MG TAB PO SCH (08:07)
[2017-04-30] MEDS: HYDROCODONE/APAP 10/325 TAB PO SCH ×3 (08:07→20:46)
[2017-04-30] MEDS: ESCITALOPRAM OXALATE 10 MG TAB PO SCH (08:07)
[2017-04-30 08:38] LABS: COLOR RED; LEUKOCYTE ESTERASE,URINE NEGATIVE (NEGATIVE); NITRITE,URINE NEGATIVE (NEGATIVE)
[2017-04-30 08:48] LABS: BACTERIA TRACE /hpf (NONE SEEN); MUCUS TRACE /lpf (NONE-1+)
[2017-04-30] MEDS ORDERED: levOFLOXACIN 500 MG/DEXTROSE 100 ML IV SCH (09:00)
--- NOTE | 2017-04-30 10:07 | ECHO ---
[id number] + + [address] : : [facility] [address] : : [phone] + Adult Echocardiographic Report + --------+ :Name: EMRE ELKINS Date: 04/30/2017 08:59 AM : : Hospital Admission Number: [id number] Locat ion: 222: :: 1950 Gender: Female Height: 62 in : :Age: 66 yrs Race: WH Weight: 175 l b : :Reason For Study: Bacteremia : : BSA: 1.8 mete rs2 : :History: Pacemaker : + --------+ Left Ventricle The left ventricle is normal in size and function. Left ventricular systolic function is normal. No regional wall motion abnormalities noted. Right Ventricle There is a pacemaker lead in the right ventricle. The right ventricle is normal in size and function. Mitral Valve The mitral valve is normal in structure and function. There is no vegetation seen on the mitral valve. Tricuspid Valve The tricuspid valve is normal in structure and function. There is no tricuspid valve vegetation. Aortic Valve The aortic valve is not well visualized. Mild Aortic Valve Calcification. Cannot exclude aortic valvular vegetation. Small mobile structure identified in SAX. May represent small vegetation. Pulmonic Valve The pulmonic valve is normal in structure and function. Pericardium/Pleural There is no pericardial effusion. Conclusion This is a limited echo to evaluate for valvular lesions. Left ventricular systolic function is normal. There is no vegetation seen on the mitral valve. There is no tricuspid valve vegetation. The aortic valve is not well visualized. Mild Aortic Valve Calcification Cannot exclude aortic valvular vegetation. Small mobile structure identified in SAX. May represent small vegetation vs part of calcification. Final Reading Physician: Alfonso Alvarez signed on 04/30/2017 10:05 AM Ordering Physician: Arianna Rainey
[2017-04-30] MEDS: BUDESONIDE/FORMOTEROL 160/4.5 60 PUFFS/MDI IH SCH ×3 (12:16→20:23)
--- NOTE | 2017-04-30 12:24 | GCON ---
[f rep st] CONSULTATION INFECTIOUS DISEASE CONSULTATION DATE OF CONSULTATION: 04/30/2017 REQUESTING PHYSICIAN: Arianna Rainey MD. REASON FOR CONSULTATION: Coagulase negative staphylococcal bacteremia. HISTORY OF PRESENT ILLNESS: The patient is a 66-year-old female with a past medical history of end- stage renal disease on dialysis, who I am asked to see in consultation for coagulase-negative staphy lococcal bacteremia. The patient describes having intermittent fever with shaking chills over the l ast approximate 5 weeks. These occur every few days and she has noted these do occur on the evening after dialysis. She also notes that she has had some bloody discharge from around her dialysis cat heter when she is dialyzed. She had mild tenderness associated over the chest wall. When she was s een in dialysis on she had blood cultures drawn due to concerns for exit site infection, an d all bottles have shown growth of gram-positive cocci. She subsequently developed increasing short ness of breath with cough, which is largely unchanged from her baseline. The shortness of breath pr ompted her evaluation at [facility]. She was noted to have mild leukocytosis and repe at blood cultures were obtained, which are now showing both sets with coagulase-negative Staphylococ cus. The patient does complain of chronic low back pain which has worsened with radicular pain down her left leg, which she has also had in the past. She also notes some new onset thoracic back pain . She has not had any bowel or bladder incontinence. She has not had loss of function of her extre mities. The patient was given an initial dose of vancomycin at dialysis on and had a repea t dose of vancomycin given yesterday after dialysis. Her tunneled catheter was removed. Transthora cic echocardiogram was performed and shows a calcified aortic valve with possible mobile echodensity present which may represent vegetation. The patient also has a pacemaker in the right lateral ches t, which has been nontender. She has not experienced nausea, vomiting or diarrhea. She has not exp erienced skin rash. Given the above findings, I am now asked to assist in her ongoing management. PAST MEDICAL HISTORY: End-stage renal disease, on chronic hemodialysis; she notes that she has had renal artery stenosis in her remaining kidney with nephrectomy performed of her other kidney for raisa al cell cancer, hypertension, COPD, peripheral vascular disease. PAST SURGICAL HISTORY: Pacemaker placement, tunnel catheter placement, ectopic , hysterect tiffanie, left upper extremity AV fistula. CURRENT MEDICATIONS: Vancomycin 1 g IV x1 given yesterday, lisinopril 10 mg p.o. daily, heparin 500 0 units subcu q.8 hours, Neurontin 300 mg p.o. at bedtime, Lexapro 20 mg p.o. daily, vitamin D 5000 units p.o. daily, Symbicort inhaler 1 puff twice daily, aspirin 81 mg p.o. daily, Zantac 150 mg p.o. twice daily. ALLERGIES: Cephalosporins and penicillin associated with hives, contrast dye associated with hives. SOCIAL HISTORY: Patient was smoking 3/4 of a pack per day up until 3 weeks ago, no alcohol or drug use. No recent travel or animal exposures. FAMILY HISTORY: Diabetes mellitus. REVIEW OF SYSTEMS: The patient notes that she had itching and swelling in her hands and feet when g iven vancomycin at dialysis; this did not occur with premedication with Benadryl yesterday; unless o therwise noted, the remainder of a 10 system review is unremarkable. Patient does have an AV fistul a which is maturing in the left wrist, which has been nontender. PHYSICAL EXAMINATION: VITAL SIGNS: Temperature maximum 38.3, temperature current 36.5, heart rate 72, respiratory rate 12, blood pressure 145/71, oxygen saturation 83% on room air. GENERAL: Brandy lucas is an obese female in no acute distress. She appears nontoxic. HEENT: There is no scleral icter us, conjunctival injection, or conjunctival petechiae. Oropharynx shows moist mucous membranes with no thrush. Dentition is in poor repair. There is no nasal discharge. There is no tenderness over the frontal, maxillary or mastoid area. NECK: Supple without palpable lymphadenopathy or thyromeg kalia. CHEST: Clear to auscultation bilaterally without adventitious sounds. Respiratory effort is normal. Pacemaker is present in the right upper chest with no erythema or tenderness; catheter site shows no purulent drainage with minimal tenderness along tunnel tract, but no overlying erythema. CARDIOVASCULAR: Regular rate and rhythm with a 2/6 holosystolic murmur heard at the left and right upper sternal border. No gallops or rubs are noted. ABDOMEN: Obese, nontender, nondistended. Wel l-healed scar in midline. Difficult to assess for organomegaly based on body habitus. Bowel sounds are present. MUSCULOSKELETAL: There is no cyanosis, clubbing, or edema. SKIN: There are some vas culitic appearing changes over the 3rd and 4th toe of the right foot as well as the 5th toe of the l eft foot. NEUROLOGIC: Patient is alert and interacts appropriately with examiner. Cranial nerves 2-12 are grossly intact. Sensation is grossly intact. Muscle tone and bulk are normal. LYMPHATICS : No cervical or supraclavicular nodes palpable. LABORATORY DATA: White blood cell count 7.5, hematocrit 30.6, platelets 142, neutrophils 59%, lymph ocytes 20%, monocytes 17%. Serum creatinine 2.6, bilirubin 0.6, AST 24, ALT 35, alkaline phosphatas e 110, CPK 57, venous lactate is 1.5. Blood culture showing 2 of 2 sets with coagulase-negative Sta phylococcus. Echocardiogram as outlined above. IMPRESSION: Coagulase-negative staphylococcal bacteremia likely associated with tunneled dialysis c atheter which has now been removed, with concern for possible aortic valve endocarditis based on ech ocardiographic findings: The patient also has thoracic and lumbar back pain with consideration for diskitis raised. This is less typical with coagulase-negative Staphylococcus, although remains a po ssibility, particularly if organism identified as Staphylococcus lugdunensis. We will repeat blood cultures to assess for clearing of bacteremia. We will continue vancomycin dosed by levels in inter im. Favor holding off on tunneled dialysis catheter placement at this point, and would prefer tempo rary catheter if arteriovenous fistula is not mature enough. We will need to proceed with transesop hageal echocardiogram to further characterize aortic valve abnormalities. RECOMMENDATIONS: 1. Agree with vancomycin dosed by levels. 2. Transesophageal echocardiogram. 3. Repeat blood cultures to assess for clearing of bacteremia. 4. CT scan of the thoracic and lumbar spine to assess for diskitis as MRI is precluded by presence of pacemaker. 5. The above findings and plan were discussed with patient, Dr. Bowie, and Dr. Rainey. Thank you for this consultation. We will continue to follow the patient with you. /[id number]/MODL
--- NOTE | 2017-04-30 15:11 | ASMTCMCOM ---
CM Note CM Note Notes: Case Management Initial Assessment Met w/patient. Pt son Amos lives in area and provides support. He can be reached at [phone] (cell) or [phone] (home). Daughter lives out of state but involved. Pt lives alone and still drives. Reports difficulty standing for long periods of time to prepare meals. Son frequently grocery shops, pt able to navigate grocery but walk from car to apartment is further than able to tolerate while carrying groceries. Provided [employer] information from [employer]. Pt currently in dialysis in [place], but plans to switch to [place] d/t upcoming winter weather. Case Management d/c poc: To be determined. Needs are unclear at this time. Case management to follow ID notes re: IV ABX d/c needs and await PT eval and recommendations. Date Signed: 04/30/2017 03:11 PM Electronically Signed By:Doreen Monroe
--- NOTE | 2017-04-30 15:40 | HOSPPROG ---
Hospitalist Progress Note Assessment/Plan: DIAGNOSES: -gram-positive bacteremia with in both his dialysis unit cultures as well as the cultures done in the ER here yesterday; suspect dialysis access catheter is the source as there is erythema and purulence -sepsis -acute volume overload from inadequate dialysis -end-stage renal disease on chronic hemodialysis -I do not think she has any pneumonia based on her chest x-ray and the other information we have detailing cause of her fevers however will check her respiratory pathogen panel- -chronic back pain worse than usual but no sign of infection on CT imaging, unable to do MRI because pacemaker -abnormality with calcium noted on heart valve on echocardiogram, T EGD will be required to rule out endocarditis PLANS: -continue IV vancomycin -ongoing discussions with specialists about the placement of her dialysis catheter converses beginning dialysis through her fistula -will need ongoing dialysis here with fluid removal -continue usual treatments for COPD and supplement as needed -physical occupational therapy -DVT prophylaxis I have discussed the case in detail today with Dr Cardona and with Dr. 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 Supervisor, my review: Sinus rhythm Exam: alert oriented looks a bit more energetic today skin warm dry color ok resps not labored lungs clear BSs heart regular abd soft nondistended nontender, bowel sounds present limbs some erythema and purulence at catheter site iv site ok Objective: Vital Signs Temp Pulse Resp BP Pulse Ox 36.7 C 65 14 145/71 H 96 04/30/17 13:22 04/30/17 13:22 04/30/17 13:22 04/30/17 13:22 04/30/17 13:22 Laboratory Results 04/30/17 04:57 04/30/17 04:57 04/29/17 04/30/17 05/01/17 06:59 06:59 06:59 Intake Total 520 Output Total 0 Balance 520 PT 13.9 SEC (12.0-15.0) 04/29/17 04:00 INR 1.08 (0.83-1.16) 04/29/17 04:00 ICD10 Worksheet Patient Problems: Problems Problem Status Onset Fever Acute Generalized weakness Acute Pulmonary edema Acute Volume overload Acute Acute renal insufficiency Acute Complete heart block Acute Opiate or related narcotic overdose Acute Pulmonary edema Acute
[2017-04-30] MEDS: GABAPENTIN 300 MG CAP PO SCH (20:46)
[2017-04-30] MEDS: traZODone 100 MG TAB PO SCH (20:46)
[2017-04-30] MEDS: Ranitidine Hcl [Zantac] 150 MG PO SCH (21:57)
[2017-05-01] MEDS: oxyCODONE IR 5 MG TAB PO PRN ×5 (04:02→21:10)
[2017-05-01 04:31] LABS: ALBUMIN 2.9 g/dL (3.5-5.0); ANION GAP 12 mEq/L (8-16); CALCIUM 9.7 mg/dL (8.5-10.4); CARBON DIOXIDE 22 mEq/l (22-31); CHLORIDE 99 mEq/L (97-110); CREATININE 3.9 mg/dL (0.6-1.0); GLOMERULAR FILTRATION RATE 12; GLUCOSE 71 mg/dL (70-100); POTASSIUM 4.4 mEq/L (3.5-5.2); SODIUM 133 mEq/L (134-144)
[2017-05-01 04:37] LABS: VANCOMYCIN RANDOM LEVEL 14.6 mcg/mL (0.0-40.0)
[2017-05-01] MEDS: HEPARIN 5,000 UNIT/0.5 ML SYR SC SCH ×3 (05:33→21:09)
[2017-05-01] MEDS: ESCITALOPRAM OXALATE 10 MG TAB PO SCH (09:28)
[2017-05-01] MEDS: HYDROCODONE/APAP 10/325 TAB PO SCH ×3 (09:28→21:40)
[2017-05-01] MEDS: LISINOPRIL 10 MG TAB PO SCH (09:28)
[2017-05-01] MEDS: CHOLECALCIFEROL VIT D3 1,000 UNITS TAB PO SCH (09:28)
[2017-05-01] MEDS: ASPIRIN EC 81 MG TAB PO SCH (09:29)
[2017-05-01] MEDS: BUDESONIDE/FORMOTEROL 160/4.5 60 PUFFS/MDI IH SCH ×2 (09:45→19:45)
--- NOTE | 2017-05-01 10:20 | PCMIDPN ---
Assessment/Plan: Assessment/Plan: * High grade coagulase negative staphylococcal bacteremia associated with hemodialysis catheter which has been removed: TTE shows mobile echodensity on aortic valve. Will proceed with JADEN tomorrow (I have coordinated with cardiology ) to fully define as duration of therapy will be dependent on presence or absence of endocarditis. CT of T and L spine without evidence of infection. Continue vancomycin dosed by levels - current level 14.5 which remains in therapeutic range. Follow-up repeat blood cultures to assess for clearing of bacteremia. If blood cultures remain negative, can proceed with new dialysis catheter tomorrow or Monday, preferable on left given prior findings consistent with exit site infection. 05/01/17 10:15 Subjective: Patient feels better. Persistent low back pain. Objective: Vital Signs Temp Pulse Resp BP Pulse Ox 36.6 C 78 18 114/62 94 05/01/17 08:00 05/01/17 09:45 05/01/17 09:45 05/01/17 08:00 05/01/17 08:00 Laboratory Results 04/30/17 04:57 05/01/17 03:42 04/30/17 05/01/17 05/02/17 05:59 05:59 05:59 Intake Total 520 400 Output Total 0 375 Balance 520 25 Vancomycin # 4 (got dose at dialysis last week) Laboratory Tests 05/01/17 03:42 Random Vancomycin 14.6 Blood cultures 04/30/17 pending - Physical Exam General Appearance: alert, no apparent distress EENT: No conjunctival petechiae Respiratory: wheezing (end expiratory), No respiratory distress Cardiac/Chest: regular rate, rhythm, systolic murmur (2/6 holosystolic throughout), other (pacemaker site nontender without erythema) Extremities: No inflammation Skin: other (vasculitic changes tips of toes; right heel with clean ulceration) ICD10 Worksheet Patient Problems: Problems Problem Status Onset Fever Acute Generalized weakness Acute Pulmonary edema Acute Volume overload Acute Acute renal insufficiency Acute Complete heart block Acute Opiate or related narcotic overdose Acute Pulmonary edema Acute
--- NOTE | 2017-05-01 10:22 | HOSPPROG ---
Hospitalist Progress Note Assessment/Plan: DIAGNOSES: -gram-positive bacteremia with in both his dialysis unit cultures as well as the cultures done in the ER here 04/29; suspect dialysis access catheter is the source as there is erythema and purulence at catheter site; catheter now removed -sepsis -acute volume overload from inadequate dialysis - improved after dialysis here -end-stage renal disease on chronic hemodialysis -I do not think she has any pneumonia based on her chest x-ray and the other information we have detailing cause of her fevers however will check her respiratory pathogen panel -chronic back pain worse than usual but no sign of infection on CT imaging, unable to do MRI because pacemaker -abnormality with calcium noted on heart valve on echocardiogram, TTE will be required to rule out endocarditis as this would impact duration of antibiotics by up to 4 weeks PLANS: -continue IV vancomycin -ongoing discussions with specialists about the placement of her dialysis catheter converses beginning dialysis through her fistula -will need ongoing dialysis here with fluid removal but at this time can be delayed until cultures are negative as acid-base, fluid, and potassium are in good range -continue usual treatments for COPD and supplement as needed -physical occupational therapy -DVT prophylaxis I have discussed the case in detail today with Dr Cardona and with Dr. Cervantes SUBJECTIVE: Overall feeling better today Still with her chronic back pain unchanged OBJECTIVE Vitals reviewed: Now afebrile, pulse and blood pressures have been good Special Officer Automat, my review: Sinus rhythm Exam: alert oriented looks a bit more energetic today skin warm dry color ok resps not labored lungs clear BSs heart regular abd soft nondistended nontender, bowel sounds present limbs some erythema and purulence at catheter site iv site ok Objective: Vital Signs Temp Pulse Resp BP Pulse Ox 36.6 C 78 18 114/62 94 05/01/17 08:00 05/01/17 09:45 05/01/17 09:45 05/01/17 08:00 05/01/17 08:00 Laboratory Results 04/30/17 04:57 05/01/17 03:42 04/30/17 05/01/17 05/02/17 06:59 06:59 06:59 Intake Total 520 400 Output Total 0 375 Balance 520 25 PT 13.9 SEC (12.0-15.0) 04/29/17 04:00 INR 1.08 (0.83-1.16) 04/29/17 04:00 ICD10 Worksheet Patient Problems: Problems Problem Status Onset Fever Acute Generalized weakness Acute Pulmonary edema Acute Volume overload Acute Acute renal insufficiency Acute Complete heart block Acute Opiate or related narcotic overdose Acute Pulmonary edema Acute
--- NOTE | 2017-05-01 10:31 | SOAPPROG ---
SOAP Progress Note Assessment/Plan: Assessment: 1)ESRD- MADDY [facility] TTS -Last HD Sat -IR removed TDC Monday after HD-- she does have AVF in place but I am concerned it may be too small to use at this point- I will ask priming mixture carrier to assess today Will need to await ID input and negative blood Cx before new TDC ( otherwise may need temp HD cath for next HD)-- should have strict renal diet in meantime as unclear when we will be safely able to get new access. Will assess blood Cx and volume status/labs tomorrow to decide access plan, timing of next HD. 2)Bacteremia, Coag neg staph -blood Cx drawn at outpt HD unit with both bottles GPC (Drawn due to concern for exit site infection). Received dose vanco then. I called unit today (monday) and sensitivities aren't back yet. -blood Cx here 04/29 with Coag neg staph -repeat Blood Cxc from 04/30 pending -concern for line infection. TTE with possible lesion aortic valve (vs calcification)- needs JADEN, this would also help evaluate pacemaker leads as well - plans for this Monday -CT spine no obvious abscess -Vanco- checking levels to decide timing of next dose -Appreciate ID input 3)Anemia of CKD -Hb at goal, will review outpt Epo dosing with unit 4)MBD of CKD -renal diet with po -on Ca acetate binder 5)COPD/sob -likely has volume component as well and will UF with HD- improved 6)Chronic back pain 7)s/p pacemaker placement I discussed with Dr. Cervantes and Dr. Bowie pager [phone] 05/01/17 10:32 Subjective: Feels ok. No fevers. Sob/cough better. Plans for JADEN in am. I reviewed plan with her in detail. Objective: Vital Signs Temp Pulse Resp BP Pulse Ox 36.6 C 78 18 114/62 94 05/01/17 08:00 05/01/17 09:45 05/01/17 09:45 05/01/17 08:00 05/01/17 08:00 Laboratory Results 04/30/17 04:57 05/01/17 03:42 04/30/17 05/01/17 05/02/17 05:59 05:59 05:59 Intake Total 520 400 Output Total 0 375 Balance 520 25 PT 13.9 SEC (12.0-15.0) 04/29/17 04:00 INR 1.08 (0.83-1.16) 04/29/17 04:00 Physical Exam - Physical Exam General Appearance: no apparent distress EENT: other (mmm) Neck: supple Respiratory: lungs clear Cardiac/Chest: regular rate, rhythm, systolic murmur (ii/vi systolic murmur) Abdomen: normal bowel sounds, non-tender, soft Skin: warm/dry Extremities: other (trace edema ankles bilat, LUE AVF +thrill/bruit but small) Neuro/Psych: alert, oriented x 3 ICD10 Worksheet Patient Problems: Problems Problem Status Onset Fever Acute Generalized weakness Acute Pulmonary edema Acute Volume overload Acute Acute renal insufficiency Acute Complete heart block Acute Opiate or related narcotic overdose Acute Pulmonary edema Acute
[2017-05-01] MEDS: NICOTINE 21 MG/24 HR PATCH TD SCH (12:51)
[2017-05-01] MEDS: traZODone 100 MG TAB PO SCH (21:10)
[2017-05-01] MEDS: GABAPENTIN 300 MG CAP PO SCH (21:10)
[2017-05-01] MEDS: Ranitidine Hcl [Zantac] 150 MG PO SCH (21:11)
[2017-05-01] MEDS: FAMOTIDINE 20 MG TAB PO SCH (21:46)
[2017-05-02] MEDS: oxyCODONE IR 5 MG TAB PO PRN ×5 (05:03→22:02)
[2017-05-02] MEDS: HEPARIN 5,000 UNIT/0.5 ML SYR SC SCH ×3 (05:03→21:19)
[2017-05-02 05:28] LABS: ANION GAP 9 mEq/L (8-16); CALCIUM 9.7 mg/dL (8.5-10.4); CARBON DIOXIDE 22 mEq/l (22-31); CHLORIDE 101 mEq/L (97-110); CREATININE 4.6 mg/dL (0.6-1.0); GLOMERULAR FILTRATION RATE 10; GLUCOSE 77 mg/dL (70-100); POTASSIUM 4.3 mEq/L (3.5-5.2); SODIUM 132 mEq/L (134-144)
[2017-05-02 05:34] LABS: INR 1.02 (0.83-1.16); PROTIME(PATIENT) 13.3 SEC (12.0-15.0)
[2017-05-02] MEDS ORDERED: CALCIUM ACETATE 667 MG CAP PO SCH (08:00)
[2017-05-02] MEDS: BUDESONIDE/FORMOTEROL 160/4.5 60 PUFFS/MDI IH SCH ×2 (09:22→19:57)
--- NOTE | 2017-05-02 10:57 | SOAPPROG ---
JOVITA Progress Note Assessment/Plan: Assessment:Plan: ESRD-stable on Hd today -using AVF -next Hd on -outpatient Hd [facility] [phone], fax ID-catheter out -on vanco -getting premedication with benadry -dosing per pharmacy/ID -NGTD from bottles drawn on 04/30/17 -heart murmur -for JADEN Access-appears that we can use AVF -vessel is small, but good flow and function today Dispo-pending 05/02/17 10:54 Subjective: stable on Hd Objective: Vital Signs Temp Pulse Resp BP Pulse Ox 36.6 C 62 18 120/53 L 98 05/02/17 07:34 05/02/17 09:22 05/02/17 09:22 05/02/17 07:34 05/02/17 09:22 Laboratory Results 04/30/17 04:57 05/02/17 04:47 05/01/17 05/02/17 05/03/17 05:59 05:59 05:59 Intake Total 400 600 Output Total 375 300 Balance 25 300 PT 13.3 SEC (12.0-15.0) 05/02/17 04:47 INR 1.02 (0.83-1.16) 05/02/17 04:47 Physical Exam - Physical Exam General Appearance: WD/WN, alert, no apparent distress, obese EENT: normal ENT inspection Neck: normal inspection Respiratory: decreased breath sounds (throughout) Cardiac/Chest: regular rate, rhythm, systolic murmur, No diastolic murmur Abdomen: normal bowel sounds, non-tender, soft, No organomegaly, No hepatomegaly , No splenomegaly Skin: normal color, warm/dry Extremities: swelling Neuro/Psych: no motor/sensory deficits, alert, normal mood/affect, oriented x 3 ICD10 Worksheet Patient Problems: Problems Problem Status Onset Fever Acute Generalized weakness Acute Pulmonary edema Acute Volume overload Acute Acute renal insufficiency Acute Complete heart block Acute Opiate or related narcotic overdose Acute Pulmonary edema Acute
--- NOTE | 2017-05-02 12:32 | PCMIDPN ---
Assessment/Plan: Assessment/Plan: 1. Staph capitus bacteremia/sepsis related to infected HD catheter: - HD catheter out. - f/u blood cx from 04/30/17 so far ngtd - Currently on intermittent dosing of VAnco. Last dose appears to have been on - Just back from HD today.will check random level and redose likely again today. will set up random level again for . next HD is on -For JADEN tmorrow morning. -Pacer site appears swollen and bruised. JADEN will help to look at pacer leads. May consider additional imaging to assess for fluid pocket around pacer. Will d/ w radiology - care coordinated with Rn. - Plan of care reviewed with patient 2. Right heel wound: - Will start with xray. - Recommend wound care evaluation - Meds Vanco PRN based on levels. Subjective: Afebrile. feeling better. just back from dialysis. denies sob. c/o swelling and pain around pacemaker site. also has pain around right heel wound. denies abd pain or diarrhea. Objective: Vital Signs Temp Pulse Resp BP Pulse Ox 36.6 C 62 18 120/53 L 98 05/02/17 07:34 05/02/17 09:22 05/02/17 09:22 05/02/17 07:34 05/02/17 09:22 Laboratory Results 04/30/17 04:57 05/02/17 04:47 05/01/17 05/02/17 05/03/17 05:59 05:59 05:59 Intake Total 400 600 Output Total 375 300 Balance 25 300 - Physical Exam General Appearance: alert, no apparent distress Respiratory: lungs clear Cardiac/Chest: regular rate, rhythm, systolic murmur, other (right chest pacemaker with some swelling and some brusing espeically lower pole. incisin site is intact, well healed, no drainage. no acute erythema over the pacer site. ) Extremities: other (right heel; wound with ovelrying slough. tender to palpate. both feet have areas of ecchymosis or vascular changes over toes and down lateral aspect of feet. ) ICD10 Worksheet Patient Problems: Problems Problem Status Onset Fever Acute Generalized weakness Acute Pulmonary edema Acute Volume overload Acute Acute renal insufficiency Acute Complete heart block Acute Opiate or related narcotic overdose Acute Pulmonary edema Acute
[2017-05-02] MEDS: HYDROCODONE/APAP 10/325 TAB PO SCH ×3 (12:48→23:05)
[2017-05-02] MEDS: ASPIRIN EC 81 MG TAB PO SCH (12:48)
[2017-05-02] MEDS: CHOLECALCIFEROL VIT D3 1,000 UNITS TAB PO SCH (12:48)
[2017-05-02] MEDS: ESCITALOPRAM OXALATE 10 MG TAB PO SCH (12:49)
[2017-05-02] MEDS: NICOTINE 21 MG/24 HR PATCH TD SCH (12:50)
[2017-05-02 13:19] LABS: C-REACTIVE PROTEIN 31.7 mg/L (<10.0)
[2017-05-02 13:21] LABS: VANCOMYCIN RANDOM LEVEL 9.6 mcg/mL (0.0-40.0)
--- NOTE | 2017-05-02 13:38 | WOCRNPDOC ---
WOCRN Advanced Assessment Note - Skin Integrity Problem, Advanced Assess Right Lateral Heel Dressing Type: Allevyn Life Dressing Description: Clean/Dry, Intact Exudate Amount: None Integumentary Issue Intervention: Visualized Under Dressing Victorino Wound Tissue: Macerated (Severe victorino wound), Xerotic, Calloused, Painful/ Tender Victorino Wound Swelling: None Wound Bed Color: Yellow, White Wound Bed Constitution: Adhered Slough (100%) Wound Edges: Not Attached, Irregular, Thick Site Measurement - Head-to-Toe Length X Width X Depth (cm): 1.5x1.5x0.2 Skin Integrity Problem Comment: Chronic wound. Patient had never visualized it, but endorses tenderness. Showed patient wound and discussed need for wound bed to be debrided and for follow up at outpatient wound healing center. Wound care will attempt autolytic debridement at this time and round again Saturday 05/05.
[2017-05-02] MEDS ORDERED: VANCOMYCIN HCL/NORMAL SALINE 250 ML IV ONE (13:40)
[2017-05-02] MEDS: diphenhydrAMINE 25 MG CAP PO PRN (14:02)
[2017-05-02] MEDS ORDERED: LIDOCAINE 1% *Not for Epidural 20 ML MDV ONE (15:53)
--- NOTE | 2017-05-02 16:12 | HOSPPROG ---
Hospitalist Progress Note Assessment/Plan: * coag-negative Staph bacteremia * Dialysis catheter was removed * Looking at pacer wires with JADEN along with ruling out vegetations tomorrow * On vancomycin * recent diagnosis end-stage renal disease with initiation of dialysis in February * Does have AV fistula but seems to be small, holding off on using * pacemaker during her last hospitalization for 6 second heart block *Renal artery stenosis of unilateral kidney *History of renal cell carcinoma * hypertension * peripheral vascular disease * COPD Subjective: Feels well. No new complaints Objective: Vital Signs Temp Pulse Resp BP Pulse Ox 36.6 C 62 18 120/53 L 98 05/02/17 07:34 05/02/17 09:22 05/02/17 09:22 05/02/17 07:34 05/02/17 09:22 Laboratory Results 04/30/17 04:57 05/02/17 04:47 05/01/17 05/02/17 05/03/17 05:59 05:59 05:59 Intake Total 400 600 Output Total 375 300 Balance 25 300 PT 13.3 SEC (12.0-15.0) 05/02/17 04:47 INR 1.02 (0.83-1.16) 05/02/17 04:47 - Physical Exam Constitutional: no apparent distress, appears nourished, not in pain Eyes: anicteric sclera, EOMI Ears, Nose, Mouth, Throat: moist mucous membranes, ears appear normal Cardiovascular: regular rate and rhythym, no murmur, rub, or gallop Respiratory: no respiratory distress, no rales or rhonchi, clear to auscultation Gastrointestinal: normoactive bowel sounds, soft, non-tender abdomen, no palpable masses Skin: warm Neurologic: AAOx3 Psychiatric: interacting appropriately, not anxious, not encephalopathic, thought process linear ICD10 Worksheet Patient Problems: Problems Problem Status Onset Fever Acute Generalized weakness Acute Pulmonary edema Acute Volume overload Acute Acute renal insufficiency Acute Complete heart block Acute Opiate or related narcotic overdose Acute Pulmonary edema Acute
[2017-05-02] MEDS: CALCIUM ACETATE 667 MG CAP PO SCH (18:04)
[2017-05-02] MEDS: traZODone 100 MG TAB PO SCH (21:19)
[2017-05-02] MEDS: GABAPENTIN 300 MG CAP PO SCH (21:19)
[2017-05-02] MEDS: FAMOTIDINE 20 MG TAB PO SCH (21:19)
[2017-05-03] MEDS: oxyCODONE IR 5 MG TAB PO PRN ×2 (04:15→11:27)
[2017-05-03] MEDS: HEPARIN 5,000 UNIT/0.5 ML SYR SC SCH ×3 (05:45→20:13)
[2017-05-03] MEDS ORDERED: NS 500 ML IV ONE (06:29)
[2017-05-03] MEDS ORDERED: MIDAZOLAM 2 MG/2 ML VIAL IVP ONE (06:29)
[2017-05-03] MEDS ORDERED: fentaNYL 100 MCG/2 ML INJ IVP ONE (06:29)
[2017-05-03] MEDS ORDERED: BENZOCAINE UNIT DOSE SPRAY HURRICAINE MM ONE (06:29)
--- NOTE | 2017-05-03 08:23 | PDPROPOC ---
Sedation Plan of Care Sedation Plan of Care: vital signs stable, mental status noted, patient educated of risks, benefits, alternatives, patient can tolerate sedation ASA Classification: ASA 2 Planned drugs: fentanyl, midazolam Mallampati Score: Class 2 (332) Mallampati Reference Image: Patient passed 3-3-2 rule?: Yes
--- NOTE | 2017-05-03 08:24 | PDHPUP ---
History & Physical Update H&P update statement: This history and physical update is based on an assessment of the patient which was completed after admission or registration (within 24 hours), but prior to the surgery/procedure. H&P update: H&P reviewed & patient examined (Patient reports some dysphagia with meat and chiken occasionally getting stuck in her throat.) H&P changes: -Will be careful with placement of the pediatric JADEN probe. Defer for any resistance.
[2017-05-03] MEDS: BUDESONIDE/FORMOTEROL 160/4.5 60 PUFFS/MDI IH SCH ×3 (09:19→20:18)
[2017-05-03] MEDS: CHOLECALCIFEROL VIT D3 1,000 UNITS TAB PO SCH (10:35)
[2017-05-03] MEDS: CALCIUM ACETATE 667 MG CAP PO SCH ×3 (10:35→18:53)
[2017-05-03] MEDS: ASPIRIN EC 81 MG TAB PO SCH (10:35)
[2017-05-03] MEDS: ESCITALOPRAM OXALATE 10 MG TAB PO SCH (10:36)
[2017-05-03] MEDS: HYDROCODONE/APAP 10/325 TAB PO SCH ×3 (10:37→20:09)
[2017-05-03] MEDS: NICOTINE 21 MG/24 HR PATCH TD SCH (13:04)
--- NOTE | 2017-05-03 14:23 | SOAPPROG ---
SOAP Progress Note Assessment/Plan: Assessment: ESRD Staph Sepsis HTN, good control Plan: continue ABX (vanco) HD tomorrow up and around as able encouraged nutrition 05/03/17 14:20 Subjective: spirits good eating lunch ([employer]) no cp sob nausea vomiting or anorexia tired Objective: Vital Signs Temp Pulse Resp BP Pulse Ox 36.7 C 71 16 111/59 L 96 05/03/17 11:45 05/03/17 11:45 05/03/17 11:45 05/03/17 11:45 05/03/17 11:45 Laboratory Results 04/30/17 04:57 05/02/17 04:47 05/02/17 05/03/17 05/04/17 05:59 05:59 05:59 Intake Total 600 1380 150 Output Total 300 300 Balance 300 1080 150 PT 13.3 SEC (12.0-15.0) 05/02/17 04:47 INR 1.02 (0.83-1.16) 05/02/17 04:47 Physical Exam - Physical Exam General Appearance: alert Respiratory: No rhonchi, No wheezing Cardiac/Chest: regular rate, rhythm, No edema, No friction rub Extremities: No swelling Neuro/Psych: alert, normal mood/affect, oriented x 3 ICD10 Worksheet Patient Problems: Problems Problem Status Onset Fever Acute Generalized weakness Acute Pulmonary edema Acute Volume overload Acute Acute renal insufficiency Acute Complete heart block Acute Opiate or related narcotic overdose Acute Pulmonary edema Acute
--- NOTE | 2017-05-03 14:30 | PCMIDPN ---
Assessment/Plan: Assessment/Plan: * High grade coagulase negative staphylococcal bacteremia associated with hemodialysis catheter which has been removed: JADEN without evidence of endocarditis or vegetation on pacemaker leads. Has cleared bacteremia based on repeat blood cultures. Given absence of endocarditis, will plan 2 weeks of vancomycin dosed after dialysis. Plan therapy through 05/14/2017. Will follow pacemaker over time as does feel like may have some fluid in pocket but no inflammatory findings. 05/03/17 14:27 Subjective: Patient complains of fatigue. AV fistula successfully utilized for dialysis. Objective: Vital Signs Temp Pulse Resp BP Pulse Ox 36.7 C 71 16 111/59 L 96 05/03/17 11:45 05/03/17 11:45 05/03/17 11:45 05/03/17 11:45 05/03/17 11:45 Laboratory Results 04/30/17 04:57 05/02/17 04:47 05/02/17 05/03/17 05/04/17 05:59 05:59 05:59 Intake Total 600 1380 150 Output Total 300 300 Balance 300 1080 150 C-Reactive Protein 31.7 mg/L (<10.0) H 05/02/17 12:46 Vancomycin #6 Blood cultures 04/30/2017 no growth JADEN by report without valvular or lead vegetation - Physical Exam General Appearance: alert, no apparent distress EENT: No conjunctival petechiae Cardiac/Chest: regular rate, rhythm, systolic murmur (2/6 throughout), other ( Pacemaker site without erythema, warmth or tenderness; does feel like some palpable fluid present in pocket) Abdomen: non-tender, No distended Skin: No embolic lesions ICD10 Worksheet Patient Problems: Problems Problem Status Onset Fever Acute Generalized weakness Acute Pulmonary edema Acute Volume overload Acute Acute renal insufficiency Acute Complete heart block Acute Opiate or related narcotic overdose Acute Pulmonary edema Acute
[2017-05-03 15:34] LABS: % IMMATURE GRANULYOCYTES 0.2 % (0.0-1.1); ABSOLUTE IMMATURE GRANULOCYTES 0.02 10^3/uL (0.00-0.10); ADD DIFF? NO; ADD MORPH? NO; ADD SCAN? NO; ATYPICAL LYMPHOCYTE FLAG 10 (0-99); FRAGMENT RBC FLAG 0 (0-99); HEMATOCRIT 32.5 % (38.0-47.0); HEMOGLOBIN 9.9 g/dL (12.6-16.3); LEFT SHIFT FLG 0 (0-99); LIPEMIA HEMOLYSIS FLAG 80 (0-99); MEAN CELL HEMOGLOBIN 31.3 pg (27.9-34.1); MEAN CELL HEMOGLOBIN CONCENTR. 30.5 g/dL (32.4-36.7); MEAN CELL VOLUME 102.8 fL (81.5-99.8); MEAN PLATELET VOLUME 11.3 fL (8.7-11.7); PLATELET CLUMPS FLAG 0 (0-99); PLATELET COUNT 171 10^3/uL (150-400); RED BLOOD CELL COUNT 3.16 10^6/uL (4.18-5.33); RED CELL DISTRIBUTION WIDTH 15.1 % (11.5-15.2)
--- NOTE | 2017-05-03 15:55 | HOSPPROG ---
Hospitalist Progress Note Assessment/Plan: * coag-negative Staph bacteremia * Dialysis catheter was removed * JADEN reportedly normal * On vancomycin * Probably home tomorrow after dialysis * recent diagnosis end-stage renal disease with initiation of dialysis in February * Does have AV fistula but seems to be small, holding off on using * pacemaker during her last hospitalization for 6 second heart block *Renal artery stenosis of unilateral kidney *History of renal cell carcinoma * hypertension * peripheral vascular disease * COPD Subjective: Feels tired post procedure but no new complaints Objective: Vital Signs Temp Pulse Resp BP Pulse Ox 36.6 C 68 18 108/46 L 95 05/03/17 15:44 05/03/17 15:44 05/03/17 15:44 05/03/17 15:44 05/03/17 15:44 Laboratory Results 05/03/17 15:20 05/02/17 05/03/17 05/04/17 05:59 05:59 05:59 Intake Total 600 1380 150 Output Total 300 300 Balance 300 1080 150 PT 13.3 SEC (12.0-15.0) 05/02/17 04:47 INR 1.02 (0.83-1.16) 05/02/17 04:47 - Physical Exam Constitutional: no apparent distress, appears nourished, not in pain Eyes: anicteric sclera, EOMI Cardiovascular: regular rate and rhythym Respiratory: no respiratory distress Gastrointestinal: normoactive bowel sounds, soft, non-tender abdomen, no palpable masses Skin: warm Neurologic: AAOx3 Psychiatric: interacting appropriately, not anxious, not encephalopathic, thought process linear ICD10 Worksheet Patient Problems: Problems Problem Status Onset Fever Acute Generalized weakness Acute Pulmonary edema Acute Volume overload Acute Acute renal insufficiency Acute Complete heart block Acute Opiate or related narcotic overdose Acute Pulmonary edema Acute
[2017-05-03 16:06] LABS: ANION GAP 13 mEq/L (8-16); CALCIUM 9.7 mg/dL (8.5-10.4); CARBON DIOXIDE 22 mEq/l (22-31); CHLORIDE 99 mEq/L (97-110); CREATININE 4.2 mg/dL (0.6-1.0); GLOMERULAR FILTRATION RATE 11; GLUCOSE 86 mg/dL (70-100); POTASSIUM 4.4 mEq/L (3.5-5.2); SODIUM 134 mEq/L (134-144)
[2017-05-03] MEDS: FAMOTIDINE 20 MG TAB PO SCH (20:09)
[2017-05-03] MEDS: GABAPENTIN 300 MG CAP PO SCH (20:09)
[2017-05-03] MEDS: traZODone 100 MG TAB PO SCH (20:09)
[2017-05-04] MEDS: oxyCODONE IR 5 MG TAB PO PRN ×5 (03:07→23:34)
[2017-05-04] MEDS: HEPARIN 5,000 UNIT/0.5 ML SYR SC SCH ×3 (06:40→20:50)
[2017-05-04] MEDS: HYDROCODONE/APAP 10/325 TAB PO SCH ×3 (08:29→20:49)
[2017-05-04] MEDS: CALCIUM ACETATE 667 MG CAP PO SCH ×3 (08:43→18:33)
[2017-05-04] MEDS: ESCITALOPRAM OXALATE 10 MG TAB PO SCH (08:43)
[2017-05-04] MEDS: CHOLECALCIFEROL VIT D3 1,000 UNITS TAB PO SCH (08:43)
[2017-05-04] MEDS: NICOTINE 21 MG/24 HR PATCH TD SCH (08:44)
[2017-05-04] MEDS: ASPIRIN EC 81 MG TAB PO SCH (08:44)
[2017-05-04] MEDS: BUDESONIDE/FORMOTEROL 160/4.5 60 PUFFS/MDI IH SCH ×2 (09:31→21:03)
[2017-05-04] MEDS ORDERED: LOPERAMIDE HCL 2 MG CAP PO ONE (10:09)
--- NOTE | 2017-05-04 12:30 | SOAPPROG ---
JOVITA Progress Note Assessment/Plan: Assessment:Plan: ESRD-stable on Hd today -using AVF -next Hd on Monday -outpatient Hd [facility] at [facility] [phone], fax [phone] ID-catheter out -on vanco -getting premedication with benadryl -dosing per pharmacy/ID -NGTD from bottles drawn on 04/30/17 -heart murmur -JADEN without evidence for endocarditis -abx until 05/14/17 to complete two week course Access-appears that we can use AVF -vessel is small, but good flow and function today Dispo-pending 05/04/17 12:28 Subjective: stable on Hd Objective: Vital Signs Temp Pulse Resp BP Pulse Ox 36.4 C 74 18 98/49 L 94 05/04/17 07:47 05/04/17 09:30 05/04/17 09:30 05/04/17 07:47 05/04/17 07:47 Laboratory Results 05/03/17 15:20 05/03/17 15:20 05/03/17 05/04/17 05/05/17 05:59 05:59 05:59 Intake Total 1380 450 Output Total 300 100 Balance 1080 350 PT 13.3 SEC (12.0-15.0) 05/02/17 04:47 INR 1.02 (0.83-1.16) 05/02/17 04:47 Physical Exam - Physical Exam General Appearance: alert, no apparent distress, obese EENT: normal ENT inspection Neck: normal inspection Respiratory: lungs clear, normal breath sounds, No respiratory distress Cardiac/Chest: regular rate, rhythm, systolic murmur Abdomen: normal bowel sounds, non-tender, soft, No hepatomegaly, No splenomegaly Skin: normal color, warm/dry Extremities: swelling Neuro/Psych: alert, normal mood/affect ICD10 Worksheet Patient Problems: Problems Problem Status Onset Fever Acute Generalized weakness Acute Pulmonary edema Acute Volume overload Acute Acute renal insufficiency Acute Complete heart block Acute Opiate or related narcotic overdose Acute Pulmonary edema Acute
[2017-05-04] MEDS ORDERED: VANCOMYCIN HCL/NORMAL SALINE 250 ML IV ONE (13:00)
--- NOTE | 2017-05-04 13:23 | PCMIDPN ---
Assessment/Plan: # CoNS bacteremia (YOLA vancomycin = 1, oxacillin susceptible) . Blood cx cleared 04/30. Hemodialysis catheter is out. Edison does not show pacemaker endocarditis. Pacemaker site has a fluctuant character but no warmth or erythema --plan Vancomycin 1gm after HD through 05/14 -- hold off on further evaluation of swelling over pacemaker site # Diarrhea: R/o Cdiff Subjective: c/o 7 BMs today associated with abdominal cramping patient was examined while on hemodialysis Objective: Vital Signs Temp Pulse Resp BP Pulse Ox 36.4 C 74 18 98/49 L 94 05/04/17 07:47 05/04/17 09:30 05/04/17 09:30 05/04/17 07:47 05/04/17 07:47 Laboratory Results 05/03/17 15:20 05/03/17 15:20 05/03/17 05/04/17 05/05/17 05:59 05:59 05:59 Intake Total 1380 450 Output Total 300 100 Balance 1080 350 C-Reactive Protein 31.7 mg/L (<10.0) H 05/02/17 12:46 - Physical Exam General Appearance: alert, no apparent distress EENT: poor dentition Respiratory: normal breath sounds, No accessory muscle use Neck: supple Cardiac/Chest: regular rate, rhythm, systolic murmur Extremities: other ( left wrist, hemodialysis in place) Abdomen: non-tender, soft Skin: pallor, No rash Neuro/Psych: alert, normal mood/affect, oriented x 3 - Line/s PIV Lines: other ( right forearm), No drainage, No erythema ICD10 Worksheet Patient Problems: Problems Problem Status Onset Fever Acute Generalized weakness Acute Pulmonary edema Acute Volume overload Acute Acute renal insufficiency Acute Complete heart block Acute Opiate or related narcotic overdose Acute Pulmonary edema Acute
[2017-05-04] MEDS: diphenhydrAMINE 25 MG CAP PO PRN (13:47)
--- NOTE | 2017-05-04 20:09 | HOSPPROG ---
Hospitalist Progress Note Assessment/Plan: * coag-negative Staph bacteremia * Dialysis catheter was removed * JADEN reportedly normal * On vancomycin * weakness * uncertain cause * ?diarrhea * watch another day * diarrhea * check cdiff * recent diagnosis end-stage renal disease with initiation of dialysis in February * Does have AV fistula but seems to be small, holding off on using * pacemaker during her last hospitalization for 6 second heart block *Renal artery stenosis of unilateral kidney *History of renal cell carcinoma * hypertension * peripheral vascular disease * COPD Subjective: feels pretty weak - worse than yesterday. having diarrhea Objective: Vital Signs Temp Pulse Resp BP Pulse Ox 37.1 C 74 15 107/64 94 05/04/17 19:10 05/04/17 19:10 05/04/17 19:10 05/04/17 19:10 05/04/17 19:10 Laboratory Results 05/03/17 15:20 05/03/17 15:20 05/03/17 05/04/17 05/05/17 05:59 05:59 05:59 Intake Total 1380 450 Output Total 300 100 250 Balance 1080 350 -250 PT 13.3 SEC (12.0-15.0) 05/02/17 04:47 INR 1.02 (0.83-1.16) 05/02/17 04:47 discussed with nephrology - Physical Exam Constitutional: no apparent distress, appears nourished, not in pain Eyes: anicteric sclera, EOMI Ears, Nose, Mouth, Throat: moist mucous membranes, hearing normal Cardiovascular: regular rate and rhythym, systolic murmur Respiratory: no respiratory distress, no rales or rhonchi, clear to auscultation Gastrointestinal: normoactive bowel sounds, soft, non-tender abdomen, no palpable masses Skin: warm Neurologic: AAOx3 Psychiatric: interacting appropriately, not anxious, not encephalopathic, thought process linear ICD10 Worksheet Patient Problems: Problems Problem Status Onset Fever Acute Generalized weakness Acute Pulmonary edema Acute Volume overload Acute Acute renal insufficiency Acute Complete heart block Acute Opiate or related narcotic overdose Acute Pulmonary edema Acute
[2017-05-04] MEDS: FAMOTIDINE 20 MG TAB PO SCH (20:49)
[2017-05-04] MEDS: GABAPENTIN 300 MG CAP PO SCH (20:50)
[2017-05-04] MEDS: traZODone 100 MG TAB PO SCH (21:00)
[2017-05-05 05:05] LABS: % IMMATURE GRANULYOCYTES 0.4 % (0.0-1.1); ABSOLUTE IMMATURE GRANULOCYTES 0.04 10^3/uL (0.00-0.10); ADD DIFF? NO; ADD MORPH? NO; ADD SCAN? NO; ATYPICAL LYMPHOCYTE FLAG 0 (0-99); FRAGMENT RBC FLAG 0 (0-99); HEMATOCRIT 29.7 % (38.0-47.0); HEMOGLOBIN 9.1 g/dL (12.6-16.3); LEFT SHIFT FLG 0 (0-99); LIPEMIA HEMOLYSIS FLAG 80 (0-99); MEAN CELL HEMOGLOBIN 31.4 pg (27.9-34.1); MEAN CELL HEMOGLOBIN CONCENTR. 30.6 g/dL (32.4-36.7); MEAN CELL VOLUME 102.4 fL (81.5-99.8); MEAN PLATELET VOLUME 11.7 fL (8.7-11.7); PLATELET CLUMPS FLAG 10 (0-99); PLATELET COUNT 176 10^3/uL (150-400); RED CELL DISTRIBUTION WIDTH 15.1 % (11.5-15.2)
[2017-05-05] MEDS: HEPARIN 5,000 UNIT/0.5 ML SYR SC SCH ×3 (05:07→20:25)
[2017-05-05] MEDS: oxyCODONE IR 5 MG TAB PO PRN ×3 (05:08→19:41)
[2017-05-05] MEDS: CHOLECALCIFEROL VIT D3 1,000 UNITS TAB PO SCH (09:02)
[2017-05-05] MEDS: HYDROCODONE/APAP 10/325 TAB PO SCH ×3 (09:02→20:25)
[2017-05-05] MEDS: ESCITALOPRAM OXALATE 10 MG TAB PO SCH (09:02)
[2017-05-05] MEDS: NICOTINE 21 MG/24 HR PATCH TD SCH (09:02)
[2017-05-05] MEDS: ASPIRIN EC 81 MG TAB PO SCH (09:02)
[2017-05-05] MEDS: CALCIUM ACETATE 667 MG CAP PO SCH ×3 (09:02→18:23)
--- NOTE | 2017-05-05 09:11 | WOCRNPDOC ---
WOCRN Advanced Assessment Note - Skin Integrity Problem, Advanced Assess Right Lateral Heel Dressing Type: Tegaderm Film Dressing Description: Saturated Exudate Amount: Minimal Integumentary Issue Intervention: Dressing Applied, Dressing Changed, Dressing Initialed & Dated Christine Wound Tissue: Macerated Christine Wound Swelling: None Wound Bed Color: Red, Yellow Wound Bed Constitution: Smooth Tissue (non-granulating), Adhered Slough Wound Edges: Irregular Site Odor: None Skin Integrity Problem Comment: Christine-wound maceration noted, extending approx. 1 cm circumferentially from wound, w/ white, peeling skin. Wound bed comprised of 40% adhered slough, 60% red, non-granulating tissue. Existing dressing too moist, so order was changed to a Therahoney sheet dressing instead of a gel, w/ an absorbent foam dressing. Discussed w/ patient the need for ongoing wound care in the outpatient setting when patient is discharged. hybrid car mechanicANNABELLE Saenz present and assisting, and updated wound care supplies left w/ nrusing.
[2017-05-05] MEDS: BUDESONIDE/FORMOTEROL 160/4.5 60 PUFFS/MDI IH SCH ×2 (09:19→21:18)
--- NOTE | 2017-05-05 13:22 | SOAPPROG ---
SOAP Progress Note Assessment/Plan: Assessment/Plan: ESRD: on HD TTS, last dialyzed yesterday. - HD again tomorrow. - Next week plans to switch to MWF as outpatient. BRENNAN: continue phos binder. Anemia: hgb 9.1, pt to get epo and iron per outpatient dialysis unit protocol. Access: catheter out, fistula small but works fine, will plan to use that for HD. Subjective: No acute events overnight. Pt had HD yesterday using fistula, worked fine with no issues. She notes her appetite is not so great, mostly because food is bland. Objective: Vital Signs Temp Pulse Resp BP Pulse Ox 36.5 C 66 14 122/45 H 98 05/05/17 11:02 05/05/17 11:02 05/05/17 11:02 05/05/17 11:02 05/05/17 11:02 Laboratory Results 05/05/17 04:07 05/03/17 15:20 05/04/17 05/05/17 05/06/17 05:59 05:59 05:59 Intake Total 450 150 Output Total 100 250 Balance 350 -100 PT 13.3 SEC (12.0-15.0) 05/02/17 04:47 INR 1.02 (0.83-1.16) 05/02/17 04:47 General: alert and oriented, no acute distress Eyes: EOMI, PERRL OP: Clear CV: RRR Resp: nonlabored respirations Abd: soft, NT/ND Ext: no edema BLE Neuro: CN II-XII grossly intact, no asterixis Psch: cooperative, appropriate mood and affect Access: LUE AVF with thrill and bruit appreciated ICD10 Worksheet Patient Problems: Problems Problem Status Onset Fever Acute Generalized weakness Acute Pulmonary edema Acute Volume overload Acute Acute renal insufficiency Acute Complete heart block Acute Opiate or related narcotic overdose Acute Pulmonary edema Acute
--- NOTE | 2017-05-05 14:40 | HOSPPROG ---
Hospitalist Progress Note Assessment/Plan: * coag-negative Staph bacteremia * Dialysis catheter was removed * JADEN reportedly normal * On vancomycin * weakness * seems to be getting better * diarrhea * C diff negative * recent diagnosis end-stage renal disease with initiation of dialysis in February * AV facial seems to be usable * pacemaker during her last hospitalization for 6 second heart block *Renal artery stenosis of unilateral kidney *History of renal cell carcinoma * hypertension * peripheral vascular disease * COPD * disposition - SNF tomorrow after dialysis Subjective: feels a little bit stronger Objective: Vital Signs Temp Pulse Resp BP Pulse Ox 36.5 C 72 14 122/45 H 98 05/05/17 11:02 05/05/17 13:45 05/05/17 11:02 05/05/17 11:02 05/05/17 11:23 Laboratory Results 05/05/17 04:07 05/03/17 15:20 05/04/17 05/05/17 05/06/17 05:59 05:59 05:59 Intake Total 450 150 Output Total 100 250 Balance 350 -100 PT 13.3 SEC (12.0-15.0) 05/02/17 04:47 INR 1.02 (0.83-1.16) 05/02/17 04:47 - Physical Exam Constitutional: no apparent distress, appears nourished, not in pain Eyes: anicteric sclera, EOMI Ears, Nose, Mouth, Throat: moist mucous membranes, hearing normal Cardiovascular: regular rate and rhythym, no murmur, rub, or gallop Respiratory: no respiratory distress, no rales or rhonchi, clear to auscultation Gastrointestinal: normoactive bowel sounds, soft, non-tender abdomen, no palpable masses Skin: warm Neurologic: AAOx3 Psychiatric: interacting appropriately, not anxious, not encephalopathic, thought process linear ICD10 Worksheet Patient Problems: Problems Problem Status Onset Fever Acute Generalized weakness Acute Pulmonary edema Acute Volume overload Acute Acute renal insufficiency Acute Complete heart block Acute Opiate or related narcotic overdose Acute Pulmonary edema Acute
[2017-05-05] MEDS: FAMOTIDINE 20 MG TAB PO SCH (20:25)
[2017-05-05] MEDS: traZODone 100 MG TAB PO SCH (20:25)
[2017-05-05] MEDS: GABAPENTIN 300 MG CAP PO SCH (20:25)
[2017-05-06] MEDS: oxyCODONE IR 5 MG TAB PO PRN ×4 (01:25→14:36)
[2017-05-06] MEDS: FAMOTIDINE 20 MG TAB PO SCH (01:25)
[2017-05-06 05:08] LABS: ALBUMIN 2.9 g/dL (3.5-5.0); ANION GAP 10 mEq/L (8-16); CALCIUM 10.3 mg/dL (8.5-10.4); CARBON DIOXIDE 24 mEq/l (22-31); CHLORIDE 94 mEq/L (97-110); CREATININE 5.1 mg/dL (0.6-1.0); GLOMERULAR FILTRATION RATE 8; GLUCOSE 75 mg/dL (70-100); POTASSIUM 4.3 mEq/L (3.5-5.2); SODIUM 128 mEq/L (134-144)
[2017-05-06] MEDS: BUDESONIDE/FORMOTEROL 160/4.5 60 PUFFS/MDI IH SCH (09:22)
--- NOTE | 2017-05-06 09:36 | SOAPPROG ---
SOAP Progress Note Assessment/Plan: Assessment/Plan: ESRD: on HD TTS, last dialyzed . - Pt seen on HD today. - Next week plans to switch to MWF as outpatient. BRENNAN: Phos 4.2, continue phos binder. Anemia: hgb 9.1, pt to get epo and iron per outpatient dialysis unit protocol. Hyponatremia: will modulate on HD. Access: catheter out, fistula small but works fine, will plan to use that for HD. Subjective: No acute events overnight. Pt notes that she had two falls this morning in her room while being assisted, did not hit her head, not having pain currently. She is on HD this am and tolerating well. Objective: Vital Signs Temp Pulse Resp BP Pulse Ox 36.6 C 72 10 L 132/51 H 92 05/06/17 04:00 05/06/17 04:00 05/06/17 04:00 05/06/17 04:00 05/06/17 04:00 Microbiology 04/30/17 13:09 Blood Culture - Final Blood 04/30/17 12:54 Blood Culture - Final Blood Laboratory Results 05/05/17 04:07 05/06/17 04:09 05/05/17 05/06/17 05/07/17 05:59 05:59 05:59 Intake Total 150 Output Total 250 200 Balance -100 -200 PT 13.3 SEC (12.0-15.0) 05/02/17 04:47 INR 1.02 (0.83-1.16) 05/02/17 04:47 General: alert and oriented, no acute distress Eyes; EOMI, PERRL OP: Clear CV: RRR Resp: nonlabored respirations Abd; Soft, NT Ext: trace edema BLE Neuro: CN II-XII grossly intact, no asterixis Psych: cooperative, appropriate mood and affect Access: LUE AVF cannulated ICD10 Worksheet Patient Problems: Problems Problem Status Onset Fever Acute Generalized weakness Acute Pulmonary edema Acute Volume overload Acute Acute renal insufficiency Acute Complete heart block Acute Opiate or related narcotic overdose Acute Pulmonary edema Acute
[2017-05-06] MEDS: HYDROCODONE/APAP 10/325 TAB PO SCH ×2 (10:14→11:00)
[2017-05-06] MEDS: ASPIRIN EC 81 MG TAB PO SCH (10:15)
[2017-05-06] MEDS: NICOTINE 21 MG/24 HR PATCH TD SCH (10:15)
[2017-05-06] MEDS: CHOLECALCIFEROL VIT D3 1,000 UNITS TAB PO SCH (11:14)
[2017-05-06] MEDS: CALCIUM ACETATE 667 MG CAP PO SCH ×2 (11:16→12:00)
[2017-05-06] MEDS: ESCITALOPRAM OXALATE 10 MG TAB PO SCH (11:16)
[2017-05-06] MEDS: HEPARIN 5,000 UNIT/0.5 ML SYR SC SCH ×2 (11:18→14:20)
--- NOTE | 2017-05-06 13:26 | PDIAF ---
- Diagnosis Diagnosis: infected dialysis catheter Code Status: Full Code - Medication Management Discharge Medications: Medications to Continue on Transfer traZODone [traZODONE 50MG (*)] 50 mg PO HS 09/24/15 [Last Taken 04/28/17] Budesonide/Formoterol 160/4.5 [Symbicort 160-4.5 Mcg Inh (*)] 1 puffs IH BID [Last Taken 04/28/17] Escitalopram Oxalate [Lexapro] 20 mg PO HS 12/10/16 [Last Taken 04/28/17] Gabapentin [Neurontin 300 MG (*)] 300 mg PO HS 12/10/16 [Last Taken 04/28/17] Ranitidine HCl [Zantac] 150 mg PO HS #0 01/24/17 [Last Taken 04/28/17] Cholecalciferol Vit D3 [Vitamin D3 (*)] 5,000 units PO DAILY #0 02/20/17 [Last Taken 04/28/17] Albuterol [Proventil Inhaler HFA (*)] 2 puffs IH Q4H PRN 03/15/17 [Last Taken Unknown] Aspirin EC [Aspirin EC 81 mg (*)] 81 mg PO DAILY 04/29/17 [Last Taken 04/28/17] Calcium Acetate [Phoslo (*)] 667 mg PO TIDMEAL 04/29/17 [Last Taken Unknown] HYDROcodone/APAP 10/325 [[place] 10/325 (*)] 1 tab PO Q6-8PRN PRN #1 tab 05/05/17 [Last Taken Unknown] Nicotine [Nicoderm Cq 14 mg (*)] 14 mg TD DAILY #1 patch 05/05/17 [Last Taken Unknown] Discharge Medications: Refer to the Discharge Home Medication list for PRN reason. - Orders Services needed: Physical Therapy, Occupational Therapy Diet Recommendation: no restrictions on diet - Follow Up Care Current Providers and Referrals: Keith Cervantes MD [Medical Doctor] - 05/10/17 11:30 am Patient,NotPresent [Unknown] - As per Instructions
[2017-05-06] MEDS: diphenhydrAMINE 25 MG CAP PO PRN (13:32)
[2017-05-06] MEDS ORDERED: LIDOCAINE 1% *Not for Epidural 20 ML MDV ONE (14:00)
[2017-05-06] MEDS ORDERED: HEPARIN 10,000 UNIT/10 ML MDV ONE (14:00)
[2017-05-06] MEDS ORDERED: VANCOMYCIN HCL/NORMAL SALINE 250 ML IV SCH (14:00)
[2017-05-06 14:30] VITALS: BP 127/45; PULSE 71; RESP 17; TEMP 98.4; O2SAT 95
--- NOTE | 2017-05-06 15:09 | GDS ---
[f rep st] DISCHARGE SUMMARY DISCHARGE DIAGNOSES: 1. Infected dialysis catheter with Staphylococcus capitis. 2. Newly diagnosed end-stage renal disease. 3. Chronic back pain with thoracic spine spinal disease. 4. History of renal cell carcinoma. 5. History of renal artery stenosis. 6. Hypertension. 7. Peripheral vascular disease. 8. Chronic obstructive pulmonary disease. HISTORY: This is a 66-year-old female who presented with shortness of breath. HOSPITAL COURSE: The patient was admitted with sepsis. Blood cultures were positive for staph. Thi s was thought to be due to external catheter which was removed the next day. She continued on IV van comycin which is being dosed with her dialysis. She is improving overall. She did have an AV fistul a that was about to mature and that was attempted at dialysis with good results. Patient has had worsening thoracic back pain which is chronic for her but probably exacerbated by her acute illness. She was being evaluated for spine surgery in the summer time. She will be discharge d to rehab in hopes that she can get stronger which may help her pain but also in order to consider s jewel surgery. She will be discharged to assisted facility. TIME SPENT: Greater than 30 minutes were spent on discharge. /[id number]/MODL
--- NOTE | 2017-05-07 17:04 | ASMTCMCOM ---
CM Note CM Note Notes: Reviewed chart, spoke w/RN. Called [facility] [phone] (p), (f), spoke w/RN Nelson. Per pt request dialysis to change to MWF from 11:20 to 15:30. Alerted Nelson of IV vanco needs thru 05/14/17, facility able to provide treatments. Case Management to fax IV abx orders at d/c to [phone]. OT is recommending home, No PT eval ordered. Case Management d/c poc: Independent w/family support when medically stable w/ follow up as directed. IV abx to be administered by [facility] after dialysis Case Management available for any further needs. Date Signed: 05/03/2017 03:28 PM Electronically Signed By:Doreen Monroe
--- NOTE | 2017-05-07 17:07 | ASMTCMCOM ---
CM Note CM Note Notes: Per care team, patient in need of SNF for rehab. Patient agrees that she is not well enough to go home. Referrals sent to [facility], [facility], and [facility] -- all facilities accept, and patient chooses [facility]. Spoke with [facility] to confirm that patient has changed her HD schedule to MWF. Patient also informed me that she wants to switch to [facility] in [place], and Nelson at [facility] said that they will work with patient next week to make this change. In the meantime, Mary at [facility] assures me that they will transport patient to dialysis in [place]. CM Discharge plan: discharge to [facility] after HD tomorrow, 05/06/17 Date Signed: 05/05/2017 04:12 PM Electronically Signed By:Mira Saravia
--- NOTE | 2017-05-07 17:07 | ASMTCMCOM ---
CM Note CM Note Notes: Pt scheduled to d/c to [facility] tomorrow. PASRR in progress - attempted to see pt today but couldn't wake her up. 2W CM to f/u. Date Signed: 05/05/2017 04:25 PM Electronically Signed By:Livia Rick
--- NOTE | 2017-05-07 17:08 | ASMTCMCOM ---
CM Note CM Note Notes: CM Discharge Note: Patient discharging to [facility] today. [facility] (arranged by [facility]) at 1530 today. RN Radha to call report. Jessica from [facility] confirms admit today and will set up transport to have patient taken to HD at the [facility] Tuesday 05/08 @ 1115. Patient will then work with the [facility] to switch HD facilities. Date Signed: 05/06/2017 02:00 PM Electronically Signed By:Mira Saravia
== END 2017-05-06 15:32 | DRG 314 ==
LOC: EDUNIT# → F2W 15:23
PROVIDERS: ADMIT Student in an Organized Health Care Education/Training Program; ATTEND Student in an Organized Health Care Education/Training Program
PROC: 02PY33Z Removal of Infusion Device from Great Vessel, Percutaneous Approach (ICD-10-PCS; principal; 2017-04-29)
PROC: B246ZZ4 Ultrasonography of Right and Left Heart, Transesophageal (ICD-10-PCS; 2017-04-29)
PROC: 5A1D00Z (ICD-10-PCS; 2017-04-29)
DX: T82.7XXA Infection and inflammatory reaction due to other cardiac and vascular devices, implants and grafts, initial encounter (principal); A41.1 Sepsis due to other specified staphylococcus; I12.0 Hypertensive chronic kidney disease with stage 5 chronic kidney disease or end stage renal disease; N18.6 End stage renal disease; E87.1 Hypo-osmolality and hyponatremia; J44.9 Chronic obstructive pulmonary disease, unspecified; I73.9 Peripheral vascular disease, unspecified; D63.1 Anemia in chronic kidney disease; M54.9 Dorsalgia, unspecified; I25.10 Atherosclerotic heart disease of native coronary artery without angina pectoris; F17.210 Nicotine dependence, cigarettes, uncomplicated; Z85.46 Personal history of malignant neoplasm of prostate; Z90.5 Acquired absence of kidney; Z99.2 Dependence on renal dialysis; I25.2 Old myocardial infarction; Z95.0 Presence of cardiac pacemaker
CPT/HCPCS: 96374; 97110-GP; 97161-GP; 97165-GO; 97530-GP; 97535-GO; C8924; G8978-GP-CK; G8979-GP-CI; G8979-GP-CJ; G8980-GP-CJ; G8987-GO-CI; G8988-GO-CI; J1644; J1940; J1956; J2250; J3010; J3370

== ENCOUNTER → 2017-07-10 | Outpatient (CLI) | payer OTHER, MEDICAID | LOC: GIMAGING 17:39 | PROVIDERS: ATTEND Registered Nurse | DX: I51.7 Cardiomegaly (principal); J44.9 Chronic obstructive pulmonary disease, unspecified; F17.210 Nicotine dependence, cigarettes, uncomplicated; Z95.0 Presence of cardiac pacemaker | CPT/HCPCS: 71020-PO ==